=== PATIENT | female | born 1930 | race Caucasian/White ===

== ENCOUNTER 2020-05-30 15:29 | Inpatient (IN) | payer MEDICARE, BC, OTHER ==
[~2020-05-30] VITALS: Ht 165.1 cm; Wt 63.0 kg
--- OUTSIDE RECORDS SUMMARY | ~2020-05-30 | XMS | Encounter Summary ---
Demographics + + + | Address | [address] | | | [place] [address] | + + + | Home Phone | | + + + | Preferred Language | Unknown | + + + | Marital Status | Single | + + + | Bahai Affiliation | Unknown | + + + | Race | White | + + + | Ethnic Group | Not or | + + + Author + + + | Author | [facility] | + + + | Organization | [facility] | + + + | Address | Unknown | + + + | Phone | Unavailable | + + + Support + + +---------+ + | Name | Relationship | Address | Phone | + + +---------+ + | Mindi Miller | ECON | Unknown | | + + +---------+ + Care Team Providers + +------+ + | Care Detective Homicide Squad Name | Role | Phone | + +------+ + | No Pcp Per Patient | PCP | Unavailable | + +------+ + Encounter Details +--------+ + + + + | Date | Type | Department | Care Team | Description | +--------+ + + + + | 03/17/ | Documentati | NON-[facility] | Unknown . | | | 2016 | on | Department | | | +--------+ + + + + Social History + +-------+ +--------+------+ | Tobacco Use | Types | Packs/Day | Years | Date | | | | | Used | | + +-------+ +--------+------+ | Never Assessed | | | | | + +-------+ +--------+------+ + + + | Sex Assigned at | Date Recorded | | | | + + + | Not on file | | + + + + + + + | Job Start Date | Occupation | Industry | + + + + | Not on file | Not on file | Not on file | + + + + + + + + | Travel History | Travel Start | Travel End | + + + + + + | No recent travel history available. | + + documented as of this encounter Plan of Treatment Not on filedocumented as of this encounter Visit Diagnoses Not on filedocumented in this encounter"
--- OUTSIDE RECORDS SUMMARY | ~2020-05-30 | XMS | Encounter Summary ---
Demographics + + + | Address | [address] | | | [place] [address] | + + + | Home Phone | | + + + | Preferred Language | Unknown | + + + | Marital Status | Single | + + + | Quaker Affiliation | Unknown | + + + | Race | White | + + + | Ethnic Group | Not or | + + + Author + + + | Author | [facility] | + + + | Organization | [facility] | + + + | Address | Unknown | + + + | Phone | Unavailable | + + + Support + + +---------+ + | Name | Relationship | Address | Phone | + + +---------+ + | Mindi Miller | ECON | Unknown | | + + +---------+ + Care Team Providers + +------+ + | Care Manager Fashion Name | Role | Phone | + +------+ + | No Pcp Per Patient | PCP | Unavailable | + +------+ + Encounter Details +--------+ + + + + | Date | Type | Department | Care Team | Description | +--------+ + + + + | 05/22/ | Lab | [facility] | Sridevi Szymanski, | | | 2015 | Requisition | [address] | [place] [address] | | | | | [place], [place] | [address] | | | | | [address] | [place], [place] | | | | | [phone] | [address] | | | | | | [phone] | | | | | | | | +--------+ + + + [...] Not on filedocumented as of this encounter Procedures + +--------+ + + + | Procedure Name | Priori | Date/Time | Associated Diagnosis | Comments | | | ty | | | | + +--------+ + + + | RAINBOW HOLD TUBE - | Routin | 05/22/2016 | Encounter for | | | RED TOP | e | 10:41 AM | examination for | | | | | PDT | normal comparison or | | | | | | control in clinical | | | | | | research program | | + +--------+ + + + documented in this encounter Results ARTURO CASTILLO TUBE - RED TOP (05/22/2016 10:41 AM PDT) + + | Specimen | + + | Blood - Blood | | (substance) | + + + + + + + | Performing | Address | City/State/Zipcode | Phone Number | | Organization | | | | + + + + + | [facility] | [address] | [place] [address] | | | SERVICES, CORE | [address] | | | + + + + + documented in this encounter Visit Diagnoses + + | Diagnosis | + + | Encounter for examination for normal comparison or control in clinical research | | program Examination of participant in clinical trial | + + documented in this encounter"
--- OUTSIDE RECORDS SUMMARY | ~2020-05-30 | XMS | Encounter Summary ---
Demographics + + + | Address | [address] | | | [place] [address] | + + + | Home Phone | | + + + | Preferred Language | Unknown | + + + | Marital Status | Unknown | + + + | Anglican Affiliation | Unknown | + + + | Race | Unknown | + + + | Ethnic Group | Unknown | + + + Author + + + | Author | [facility] | | | and [place] | + + + | Organization | [facility] | | | and [place] | + + + | Address | Unknown | + + + | Phone | Unavailable | + + + Support + + +---------+ + | Name | Relationship | Address | Phone | + + +---------+ + | Alejo Campa | ECON | Unknown | | + + +---------+ + Care Team Providers + +------+ + | Care Voice Over Announcer Name | Role | Phone | + +------+ + | Natalia Millan MD | PCP | | + +------+ + Encounter Details +--------+ + + + + | Date | Type | Department | Care Team | Description | +--------+ + + + + | 03/14/ | Imaging | [facility] | [place], | | | 2020 | Exam | [place] [address] | [address] | | | | | [address] | [address] | | | | | [place] [address] | [place] | | | | | [phone] | [address] | | | | | | | | +--------+ + + + + Social History + +-------+ +--------+------+ | Tobacco Use | Types | Packs/Day | Years | Date | | | | | Used | | + +-------+ +--------+------+ | Never Smoker | | | | | + +-------+ +--------+------+ + +---+---+---+ | Smokeless Tobacco: | | | | | Never Used | | | | + +---+---+---+ + + +---------+ + | Alcohol Use | Drinks/Week | oz/Week | Comments | + + +---------+ + | Never | | | | + + +---------+ + + + + + | Alcohol Habits | Answer | Date Recorded | + + + + | How often do you have a drink containing | Never | 05/13/2019 | | alcohol? | | | + + + + | How many drinks containing alcohol do you | Not asked | | | have on a typical day when you are | | | | drinking? | | | + + + + | How often do you have six or more drinks on | Not asked | | | one occasion? | | | + + + + + + + | Sex Assigned at | Date Recorded | | | | + + + | Not on file | | + + + documented as of this encounter Plan of Treatment Not on filedocumented as of this encounter Procedures + +--------+ + + + | Procedure Name | Priori | Date/Time | Associated Diagnosis | Comments | | | ty | | | | + +--------+ + + + | XR CHEST 2 VIEWS | STAT | 03/14/2020 | SOB (shortness of | Results for this | | | | 1:04 PM | breath) | procedure are in the | | | | PDT | | results section. | + +--------+ + + + documented in this encounter Results XR Chest 2 Vws (03/14/2020 1:04 PM PDT) + + | Specimen | + + | | + + + + + | Impressions | Performed At | + + + | Possible right lung infiltrate. Dictated and Signed by: | [facility] | | Joce King MD Electronically signed: 03/14/2020 2:50 PM | | + + + + + + | Narrative | Performed At | + + + | EXAM: XR CHEST 2 VIEWS dated 03/14/2020 1:04 PM HISTORY: short of | [facility] | | breath Comparison: 05/13/2019 TECHNIQUE: Frontal and lateral | | | views of the chest. FINDINGS: The lungs are symmetrically | | | aerated. Asymmetric increased density in the right lung. This is | | | only seen on the frontal view. Nipple shadow in the left lower | | | lung. There are no pleural effusions. There is no pneumothorax. | | | The cardiac and mediastinal contours are not enlarged. The | | | visible osseous structures are unremarkable. | | + + + + + | Procedure Note | + + | Kevin, Rad Results In - 03/14/2020 2:54 PM PDT EXAM: XR CHEST 2 VIEWS dated 03/14/2020 | | 1:04 PMHISTORY: short of breathComparison: 05/13/2019TECHNIQUE: Frontal and lateral views | | of the chest.FINDINGS:The lungs are symmetrically aerated. Asymmetric increased | | density in the rightlung. This is only seen on the frontal view. Nipple shadow in the | | left lowerlung. There are no pleural effusions. There is no pneumothorax. The | | cardiacand mediastinal contours are not enlarged. The visible osseous structures | | areunremarkable. IMPRESSION: Possible right lung infiltrate. Dictated and Signed by: | | Joce King MD Electronically signed: 03/14/2020 2:50 PM | |FINDINGS: | |The lungs are symmetrically aerated. Asymmetric increased density in the right | |lung. This is only seen on the frontal view. Nipple shadow in the left lower | |lung. There are no pleural effusions. There is no pneumothorax. The cardiac | |and mediastinal contours are not enlarged. The visible osseous structures are | |unremarkable. | | | |IMPRESSION: | | | |Possible right lung infiltrate. | | | |Dictated and Signed by: Joce King MD | | Electronically signed: 03/14/2020 2:50 PM | + + + +---------+ + + | Performing | Address | City/State/Zipcode | Phone Number | | Organization | | | | + +---------+ + + | [facility] | | | | + +---------+ + + documented in this encounter Visit Diagnoses Not on filedocumented in this encounter Additional Health Concerns + + + + + | Infection | Onset Date | Last Indicated | Resolved Time | + + + + + | Rule out COVID-19 | 03/14/2020 | 03/14/2020 | 2020 6:06 PM | | | | | PDT | + + + + + documented as of this encounter"
--- OUTSIDE RECORDS SUMMARY | ~2020-05-30 | XMS | Encounter Summary ---
Demographics + + + | Address | [address] | | | [place] [address] | + + + | Home Phone | | + + + | Preferred Language | Unknown | + + + | Marital Status | Unknown | + + + | Congregation Affiliation | Unknown | + + + | Race | Unknown | + + + | Ethnic Group | Unknown | + + + Author + + + | Author | [facility] | | | and [place] | + + + | Organization | [facility] | | | and [...] Team Providers + +------+ + | Care Cable Spooler Name | Role | Phone | + +------+ + PCP | Unavailable | + +------+ + Encounter Details +--------+ + + + + | Date | Type | Department | Care Team | Description | +--------+ + + + + | 12/13/ | Hospital | [facility] | Nader Araujo, | | | 2002 | Encounter | [facility] | [place] [address] | | | | [address] | | | | | [address] [place], [place] | [place], [place] | | | | | [address] | [address] | | | | | [phone] | [phone] | | | | | | | [...] | + +--------+ + + + | SURGICAL PATHOLOGY | Routin | 12/13/2002 | | Results for this | | EXAM | e | 12:00 AM | | procedure are in the | | | | PST | | results section. | + +--------+ + + + documented in this encounter Results Surgical Pathology Exam (12/13/2002 12:00 AM PST) + + | Specimen | + + | | + + + + + | Narrative | Performed At | + + + | SURGICAL PATHOLOGY REPORT | [facility] | | Date Taken: 12/13/2002 Date Received: 12/13/2002 | | | Completed: 12/14/2002 Physician: PHUC CANI Copy to: Nader | | | [facility] DIAGNOSIS: Skin (center forehead), NOS. 0 | | | Maryann Moya M.D. Electronic signature GROSS | | | DESCRIPTION: The specimen labeled "center of forehead" is received in | | | formalin and consists of a 0.5 x 0.5 cm shave of white-baker tissue. | | | The specimen is bisected and submitted in one cassette. (MS) | | | [id number] [address] | | | or Testing performed at: [facility] | | | [facility] Sloan Marquez M.D., | | | Director [address] [place] [address] [address] [place] [address] Phone: | | | | | + + + + + + + + | Performing | Address | City/State/[facility] | Phone Number | | Organization | | | | + + + + + | [facility] | [address] | [place] [address] | | | [facility] | | | | | LABORATORY | | | | + + + + + | [facility] | | | | + + + + + documented in this encounter Visit Diagnoses Not on filedocumented in this encounter
--- OUTSIDE RECORDS SUMMARY | ~2020-05-30 | XMS | Encounter Summary ---
Demographics + + + | Address | [address] | | | [place] [address] | + + + | Home Phone | | + + + | Preferred Language | Unknown | + + + | Marital Status | Single | + + + | Sabianist Affiliation | Unknown | + + + | Race | White | + + + | Ethnic Group | Not or | + + + Author + + + | Author | [facility] | + + + | Organization | [facility] | + + + | Address | Unknown | + + + | Phone | Unavailable | + + + Support + + +---------+ + | Name | Relationship | Address | Phone | + + +---------+ + | Mindi Miller | ECON | Unknown | | + + +---------+ + Care Team Providers + +------+ + | Care Senior Application Programmer Name | Role | Phone | + +------+ + | No Pcp Per Patient | PCP | Unavailable | + +------+ + Encounter Details +--------+ + + + + | Date | Type | Department | Care Team | Description | +--------+ + + + + | 02/12/ | Documentati | NON-[facility] | Unknown . | | | 2017 | on | Department | | | [...]
--- OUTSIDE RECORDS SUMMARY | ~2020-05-30 | XMS | Encounter Summary ---
Demographics + + + | Address | [address] | | | [place] [address] | + + + | Home Phone | | + + + | Preferred Language | Unknown | + + + | Marital Status | Unknown | + + + | Worship Affiliation | Unknown | + + + | Race | Unknown | + + + | Ethnic Group | Unknown | + + + Author + + + | Author | [facility] | | | and [place] | + + + | Organization | [facility] | | | and [...] Team Providers + +------+ + | Care Continuous Improvement Director Name | Role | Phone | + +------+ + | Natalia Millan MD | PCP | | + +------+ + Reason for Visit + +--------+ + | Reason | Onset | Comments | | | Date | | + +--------+ + | Symptom Management | 05/27/ | | | | 2020 | | + +--------+ + Encounter Details +--------+ + + + + | Date | Type | Department | Care Team | Description | +--------+ + + + + | 05/27/ | Telephone | [facility] [place] | Becca Luo | Symptom Management | | 2020 | | [facility] | D, PT [address] | | | | | [address] | [address] [place] | | | | | [place] | [address] | | | | | [address] | | | | | | [phone] | | | +--------+ + + + [...] + + documented as of this encounter Miscellaneous Notes Telephone Encounter - Becca Luo, PT - 05/27/2020 4:36 PM PDT(for 1st contact and 2nd contact calls.) While waiting for your COVID-19 test results, you must wear a mask if yo u need to leave your home. This includes returning to a healthcare facility. Please arrive w earing your mask given to you during your initial evaluation. Do not throw your mask away. Was patient tested for COVID as part of Pre-Op clearance? No If yes, when is their upcoming surgery? N/A Patient reached? No, (negative) left a detailed voice message stating their test results for the COVID 19 is negative. Patient to continue social distancing, but no longer needs to be on home quaranti ne . May return to work if fever is gone and no meds were needed to reduce it within the las t 24 hours. COVID testing done? Yes COVID results: Negative Describe your symptoms? Unable to assess Are your symptoms getting better, worse, or the same? Symptoms: Unable to assess documented in this encounter Plan of Treatment Not on filedocumented as of this encounter Visit Diagnoses Not on filedocumented in this encounter Additional Health Concerns + + + + + | Infection | Onset Date | Last Indicated | Resolved Time | + + + + + | Rule out COVID-19 | 05/24/2020 | 05/24/2020 | 05/27/2020 12:06 AM | | | | | PDT | + + + + + documented as of this encounter"
--- OUTSIDE RECORDS SUMMARY | ~2020-05-30 | XMS | Encounter Summary ---
Demographics + + + | Address | [address] | | | [place] [address] | + + + | Home Phone | | + + + | Preferred Language | Unknown | + + + | Marital Status | Unknown | + + + | Bahai Affiliation | Unknown | + + + | Race | Unknown | + + + | Ethnic Group | Unknown | + + + Author + + + | Author | [facility] | | | and [place] | + + + | Organization | [facility] | | | [...] Team Providers + +------+ + | Care Staff Services Manager Name | Role | Phone | + +------+ + | Graeme Millan MD | PCP | | + +------+ + Reason for Visit + + + | Reason | Comments | + + + | Shortness of Breath | | + + + Encounter Details +--------+ + + + + | Date | Type | Department | Care Team | Description | +--------+ + + + + | 03/14/ | Emergency | [facility] | Arnaldo Roque | Viral pneumonitis | | 2020 | | [facility] | Nelson Haque MD | (Primary Dx) | | | | CENTER [address] | [address] | | | | | [place], [place] | [place], [place] | | | | | [address] | [id number] | | | | | [phone] | | | +--------+ + + + [...] + + documented as of this encounter Last Filed Vital Signs + + + + + | Vital Sign | Reading | Time Taken | Comments | + + + + + | Blood Pressure | 168/72 | 03/14/2020 4:31 PM | | | | | PDT | | + + + + + | Pulse | 68 | 03/14/2020 4:31 PM | | | | | PDT | | + + + + + | Temperature | 36.1 C (97 F) | 03/14/2020 3:04 PM | | | | | PDT | | + + + + + | Respiratory Rate | 18 | 03/14/2020 4:31 PM | | | | | PDT | | + + + + + | Oxygen Saturation | 99% | 03/14/2020 4:31 PM | | | | | PDT | | + + + + + | Inhaled Oxygen | - | - | | | Concentration | | | | + + + + + | Weight | 63.5 kg (140 lb) | 03/14/2020 3:04 PM | | | | | PDT | | + + + + + | Height | 167.6 cm (5' 6") | 03/14/2020 3:04 PM | | | | | PDT | | + + + + + | Body Mass Index | 22.6 | 03/14/2020 3:04 PM | | | | | PDT | | + + + + + documented in this encounter Discharge Instructions Instructions Arnaldo Roque MD - 03/14/2020Return for severe worsening sympto ms. Please follow-up in medical clinic. Discharge Instructions While Being Evaluated for COVID-19 Expect to receive your test results in the next 2-5 days. Be sure the hospital has your correct phone number. Please answer your phone as we are unab le to leave your results in a message. Monitor your symptoms Seek prompt medical attention if your illness is worsening (e.g., difficulty breathing). Be fore seeking care, call your healthcare provider or Emergency Department and tell them that you have, or are being evaluated for, COVID-19. Put on a facemask before you enter the facility. These steps will help the healthcare provi isiah's office to keep other people in the office or waiting room from getting infected or exp osed. If you have a medical emergency and need to call 911, notify the dispatch personnel that yo u have, or are being evaluated for COVID-19. If possible, put on a facemask before emergency medical services arrive. Stay home except to get medical care You should restrict activities outside your home. Do not go to work, school, or public area s. Avoid using public transportation, ride-sharing, or taxis. Limit the number of visitors in your home Only have visitors who you must see and keep visits short. Remember to keep seniors and peo ple with chronic medical conditions (e.g. diabetes, lung problems, and immune deficiency) aw ay from infected people. Separate yourself from other people and animals in your home As much as possible, you should stay in a specific room and away from other people in your home. Also, you should use a separate bathroom, if available. Make sure that shared spaces in the home have good air flow, such as by an air conditioner or an opened window, weather permitting. Call ahead before visiting your doctor If you have a medical appointment, call the healthcare provider and tell them that you have or may have COVID-19. This will help the healthcare provider's office take steps to keep ot her people from getting infected or exposed. Wear a facemask You should wear a facemask when you are around other people (e.g., sharing a room or vehicl e) or pets and before you enter a healthcare provider's office. If you are not able to wear a facemask (for example, because it causes trouble breathing), then people who live with you should not stay in the same room with you, or they should wear a facemask if they enter you r room. Cover your coughs and sneezes Cover your mouth and nose with a tissue or your inner elbow when you cough or sneeze. Throw used tissues in a lined trash can. Immediately wash your hands with soap and water for at l east 20 seconds or, if soap and water are not available, clean your hands with an alcohol-ba sed hand training analyst that contains at least 60% alcohol. Clean your hands often Wash your hands often with soap and water for at least 20 seconds, especially after blowing your nose, coughing, or sneezing; going to the bathroom; and before eating or preparing kahlil d. If soap and water are not readily available, use an alcohol-based hand training analyst with at least 60% alcohol, covering all surfaces of your hands and rubbing them together until they feel dry. Soap and water are the best option if hands are visibly dirty. Avoid touching your eyes, no se, and mouth with unwashed hands. Avoid sharing personal household items You should not share dishes, drinking glasses, cups, eating utensils, towels, or bedding wi th other people or pets in your home. After using these items, they should be washed thoroug hly with soap and water. Clean all high-touch surfaces everyday High touch surfaces include counters, tabletops, doorknobs, bathroom fixtures, toilets, rayna satinder, keyboards, tablets, and bedside tables. Also, clean any surfaces that may have blood, s tool, or body fluids on them. Use a household cleaning spray or wipe, according to the label instructions. Wash laundry thoroughly. Immediately remove and wash clothes or bedding that have blood, stool, or body fluids on th em. Wear disposable gloves while handling soiled items and keep soiled items away from your body. Clean your hands (with soap and water or an alcohol-based hand training analyst) immediately after removing your gloves. Read and follow directions on labels of laundry or clothing items and detergent. In general , using a normal laundry detergent according to washing machine instructions and dry thoroug hly using the warmest temperatures recommended on the clothing label. Be careful when touching waste All waste can go in the regular garbage bins. When emptying wastebaskets, use caution to pr event from touching used tissues with your hands. Be sure to wash your hands with soap and w ater after emptying the wastebasket. Discontinuing home isolation Patients with confirmed COVID-19 should remain under home isolation precautions until the r isk of secondary transmission to others is thought to be low. The decision to discontinue ho me isolation precautions should be made in consultation with your healthcare provider. For more information visit: www.CDC.gov www.who.int www.[place].gov Reference: https://www.cdc.gov/coronavirus/2019-nCoV/hcp/index.html https://www.who.int/emergencies/diseases/wyjxq-tzbyqzuqonn-0796/hxtxtn-puq-whwgoy documented in this encounter Medications at Time of Discharge + + + +---------+ + + | Medication | Sig | Dispensed | Refills | Start | End Date | | | | | | Date | | + + + +---------+ + + | albuterol 90 | Inhale 2 puffs into | 1 | 0 | 05/13/20 | | | mcg/puff inhaler | the lungs every 4 | Inhaler | | 19 | | | | hours as needed for | | | | | | | Wheezing or | | | | | | | Shortness of Breath. | | | | | | | Use with spacer | | | | | | | device. | | | | | + + + +---------+ + + | azithromycin | Take 2 tablets by | 6 | 0 | 03/14/20 | | | (ZITHROMAX) 250 mg | mouth daily x 1 day, | tablet | | 20 | | | tablet | then take 1 tablet | | | | | | | by mouth daily x 4 | | | | | | | days. | | | | | + + + +---------+ + + | cholecalciferol | Take 1,000 Units by | | 0 | | | | (VITAMIN D-3) 1,000 | mouth Daily. | | | | | | units capsule | | | | | | + + + +---------+ + + | cyanocobalamin | Take 50 mcg by mouth | | 0 | | | | (VITAMIN B-12) 100 | Daily. | | | | | | MCG tablet | | | | | | + + + +---------+ + + | FLOVENT HFA 220 | Take 2 puffs by | 1 | 0 | 03/14/20 | | | MCG/ACT inhaler | mouth 2 times daily. | Inhaler | | 20 | | + + + +---------+ + + | levothyroxine | take 1 tablet by | | 0 | 02/01/20 | | | (SYNTHROID) 100 mcg | mouth once daily | | | 20 | | | tablet | | | | | | + + + +---------+ + + | losartan (COZAAR) | Take 100 mg by mouth | | 0 | | | | 100 MG tablet | Daily. | | | | | + + + +---------+ + + | Multiple | Take by mouth. | | 0 | | | | Vitamins-Minerals | | | | | | | (OCUVITE ADULT 50+ | | | | | | | PO) | | | | | | + + + +---------+ + + | oxybutynin | take 3 tablets by | | 0 | 03/05/20 | | | (DITROPAN XL) 5 mg | mouth at bedtime | | | 20 | | | 24 hr tablet | | | | | | + + + +---------+ + + | | | | 0 | /20 | | | Spacer/Aero-Holding | | | | 19 | | | Chambers | | | | | | | (AEROCHAMBER PLUS | | | | | | | EMIR-VU) MISC | | | | | | + + + +---------+ + + documented as of this encounter ED Notes Arnaldo Roque MD - 03/14/2020 4:22 PM PDTFormatting of this note might be d ifferent from the original. [facility] Corey Johnson EMERGENCY DEPARTMENT ENCOUNTER NOTE [address] [place] [id number] PCP:Graeme Millan MD [phone] EMERGENCY DEPARTMENT ENCOUNTER CHIEF COMPLAINT Chief Complaint Patient presents with Shortness of Breath TRIAGE ED Triage Notes, ED Triage Notes Regino Martinez RN 03/14/2020 15:05 SOB, patient sent from after being treated for SOB and was told to come to the ED for fu rther evaluation and to r/o PE HPI Corey Johnson is a 89 y.o. female who presents with ongoing cough that is worsened over the last week. She has had some shortness of breath. She has previous history of asthma. She was seen in urgent care and given albuterol and directions and he had to use albuterol. Tam bhat had some blood work which showed elevated d-dimer. Patient was sent over for further investigation. He does have ongoing dry cough. No significant sputum production PAST MEDICAL AND SURGICAL HISTORY I did review the patient's past medical and surgical history. 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 The patient has a past surgical history that includes Esophagus dilation (04/25/2016); Hysterectomy; knee surgery; and Colon oscopy (N/A, 02/25/2018). Family and Social History I did review the patient's family and social history. The patient's family history is not o n file. The patient reports that she has never smoked. She has never used smokeless tobacco. She reports that she does not drink alcohol or use drugs. 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 Use with spacer device. cholecalciferol (VITAMIN D-3) 1,000 units capsule Take 1,000 Units by mouth Daily. cyanocobalamin (VITAMIN B-12) 100 MCG tablet Take 50 mcg by mouth Daily. FLOVENT HFA 220 MCG/ACT inhaler Take 2 puffs by mouth 2 times daily. levothyroxine (SYNTHROID) 100 mcg tablet take 1 tablet by mouth once daily losartan (COZAAR) 100 MG tablet Take 100 mg by mouth Daily. Multiple Vitamins-Minerals (OCUVITE ADULT 50+ PO) Take by mouth. oxybutynin (DITROPAN XL) 5 mg 24 hr tablet take 3 tablets by mouth at bedtime Spacer/Aero-Holding Chambers (AEROCHAMBER PLUS EMIR-VU) MISC Allergies No Known Allergies REVIEW OF SYSTEMS Please see HPI, All systems negative except as marked. Twelve point review of system comp leted my me. PHYSICAL EXAM VITAL SIGNS: Temp: 36.1 C (97 F) Pulse: 67 Resp: 20 SpO2: 100 % BP: 178/68 Constitutional: Well developed, Well nourished, Non-toxic appearance. HENT: Normocephalic, Atraumatic, Bilateral external ears normal, Oropharynx moist, No oral exudates, Nose normal. Neck- Normal range of motion, No tenderness, Supple, No stridor. Eyes: PERRL, EOMI, Conjunctiva normal, No discharge. Respiratory: Normal breath sounds, noted dry cough, with increased rhonchi bilaterally. N o chest tenderness. Cardiovascular: Normal heart rate, Normal rhythm, No murmurs, No rubs, No gallops. GI: Bowel sounds normal, Soft, No tenderness, No masses, No pulsatile masses. Musculoskeletal: Intact distal pulses, No edema, No tenderness, No cyanosis, No clubbing. Good range of motion in all major joints. No tenderness to palpation or major deformities no ana paula. Back:- No tenderness. Neurologic: Alert & oriented x 3, Normal motor function, Normal sensory function, No focal deficits noted, no facial assymetry noted. Equal aerodynamics teacher in all extremities Psychiatric: Affect normal, Judgment normal, Mood normal. RADIOLOGY Ct Angiogram Pulmonary W Contrast Result Date: 03/14/2020 EXAM: CT PULMONARY ANGIOGRAM 03/14/2020 2:49 PM HISTORY: PE suspected, high pretest prob COMPARISON: Chest x-ray performed today. TECHNIQUE: Axial images are performed through the chest following the uneventful intravenous administration of 65 mL Omnipaque-350 contrast, with timing of the contrast bolus optimized for opacification of the pulmonary arteries. Mul tiplanar reformations are also performed. DOSE: DLP 144 mGy-cm FINDINGS: Pulmonary arteries: The pulmonary arteries are well opacified. The average Hounsfield units in the main pulmon glen artery are over 800. The bolus is slightly heterogeneous. There is no enlargement of t he main pulmonary artery. There are no filling defects to suggest pulmonary embolism. Heart and Mediastinum: No aneurysmal dilatation of the thoracic aorta. Dissection cannot be fully excluded given the timing of the contrast bolus. None is suspected. No significant cardiac chamber enlargement. No pericardial thickening. No pneumomediastinum. No mediastinal or h ilar lymphadenopathy. There is a small hiatal hernia. Lungs: No pleural effusions. No pneum othorax. No bronchial wall thickening. Mild lower lobe bronchiectasis. There are numerous bilateral groundglass nodules. A large portion are groundglass. The largest is 5 mm as see n in the right middle lobe (series 5, image 57). Chest wall: No axillary or visible supracla vicular lymphadenopathy. Upper abdomen: Unremarkable Bone: No suspicious lytic or blastic katrin ne lesions. No acute osseous abnormalities. Diffuse demineralization. No evidence for pulmonary embolism. Multiple bilateral pulmonary nodules measuring 5 mm and less. A large portion of these are ground glass. The remainder are noncalcified. These c ould represent an atypical pneumonia. These could represent changes related to hypersensiti vity pneumonitis. Dictated and Signed by: Joce King MD Electronically signed: 020 4:03 PM Xr Chest 2 Vws Result Date: 03/14/2020 EXAM: XR CHEST 2 VIEWS dated 03/14/2020 1:04 PM HISTORY: short of breath Comparison: 05/13/20 TECHNIQUE: Frontal and lateral views of the chest. FINDINGS: The lungs are symmetrically aerated. Asymmetric increased density in the right lung. This is only seen on the frontal view. Nipple shadow in the left lower lung. There are no pleural effusions. There is no p neumothorax. The cardiac and mediastinal contours are not enlarged. The visible osseous st ructures are unremarkable. Possible right lung infiltrate. Dictated and Signed by: Joce King MD Electronically signed: 03/14/2020 2:50 PM LAB Labs Reviewed - No data to display ED COURSE & MEDICAL DECISION MAKING Pertinent Labs & Imaging studies reviewed. (See chart for details) Nursing notes reviewed. Patient does have some very small nodules in the chest which are shown of viral pneumonitis versus allergic pneumonitis. Patient is otherwise stable. She is encouraged to follow-up with her primary care physician. We are testing here for COVID-19 she is to be followed by the outpatient COVID screening visits. At this point patient is otherwise stable. New Prescriptions AZITHROMYCIN (ZITHROMAX) 250 MG TABLET Take 2 tablets by mouth daily x 1 day, then take 1 tablet by mouth daily x 4 days. Discharge Instructions Return for severe worsening symptoms. Please follow-up in medical clinic. Discharge Instructions While Being Evaluated for COVID-19 Expect to receive your test results in the next 2-5 days. ? Be sure the hospital has your correct phone number. Please answer your phone as we are un able to leave your results in a message. Monitor your symptoms ? Seek prompt medical attention if your illness is worsening (e.g., difficulty breathing). Before seeking care, call your healthcare provider or Emergency Department and tell them leslie t you have, or are being evaluated for, COVID-19. ? Put on a facemask before you enter the facility. These steps will help the healthcare pro vider's office to keep other people in the office or waiting room from getting infected or e xposed. If you have a medical emergency and need to call 911, notify the dispatch personnel that yo u have, or are being evaluated for COVID-19. ? If possible, put on a facemask before emergency medical services arrive. Stay home except to get medical care ? You should restrict activities outside your home. Do not go to work, school, or public ar eas. Avoid using public transportation, ride-sharing, or taxis. Limit the number of visitors in your home ? Only have visitors who you must see and keep visits short. Remember to keep seniors and p eople with chronic medical conditions (e.g. diabetes, lung problems, and immune deficiency) away from infected people. Separate yourself from other people and animals in your home ? As much as possible, you should stay in a specific room and away from other people in you r home. Also, you should use a separate bathroom, if available. ? Make sure that shared spaces in the home have good air flow, such as by an air conditione r or an opened window, weather permitting. Call ahead before visiting your doctor ? If you have a medical appointment, call the healthcare provider and tell them that you wells ve or may have COVID-19. This will help the healthcare provider's office take steps to keep other people from getting infected or exposed. Wear a facemask ? You should wear a facemask when you are around other people (e.g., sharing a room or vehi yumiko) or pets and before you enter a healthcare provider's office. If you are not able to wea r a facemask (for example, because it causes trouble breathing), then people who live with y ou should not stay in the same room with you, or they should wear a facemask if they enter y our room. Cover your coughs and sneezes ? Cover your mouth and nose with a tissue or your inner elbow when you cough or sneeze. Thr ow used tissues in a lined trash can. Immediately wash your hands with soap and water for at least 20 seconds or, if soap and water are not available, clean your hands with an alcohol- based hand training analyst that contains at least 60% alcohol. Clean your hands often ? Wash your hands often with soap and water for at least 20 seconds, especially after blowi ng your nose, coughing, or sneezing; going to the bathroom; and before eating or preparing f ood. If soap and water are not readily available, use an alcohol-based hand training analyst with a t least 60% alcohol, covering all surfaces of your hands and rubbing them together until the y feel dry. ? Soap and water are the best option if hands are visibly dirty. Avoid touching your eyes, nose, and mouth with unwashed hands. Avoid sharing personal household items ? You should not share dishes, drinking glasses, cups, eating utensils, towels, or bedding with other people or pets in your home. After using these items, they should be washed thoro ughly with soap and water. Clean all high-touch surfaces everyday ? High touch surfaces include counters, tabletops, doorknobs, bathroom fixtures, toilets, p hones, keyboards, tablets, and bedside tables. Also, clean any surfaces that may have blood, stool, or body fluids on them. Use a household cleaning spray or wipe, according to the lab el instructions. Wash laundry thoroughly. ? Immediately remove and wash clothes or bedding that have blood, stool, or body fluids on them. Wear disposable gloves while handling soiled items and keep soiled items away from you r body. Clean your hands (with soap and water or an alcohol-based hand training analyst) immediatel y after removing your gloves. ? Read and follow directions on labels of laundry or clothing items and detergent. In gener al, using a normal laundry detergent according to washing machine instructions and dry thoro ughly using the warmest temperatures recommended on the clothing label. Be careful when touching waste ? All waste can go in the regular garbage bins. When emptying wastebaskets, use caution to prevent from touching used tissues with your hands. Be sure to wash your hands with soap and water after emptying the wastebasket. Discontinuing home isolation ? Patients with confirmed COVID-19 should remain under home isolation precautions until the risk of secondary transmission to others is thought to be low. The decision to discontinue home isolation precautions should be made in consultation with your healthcare provider. For more information visit: www.CDC.gov www.who.int www.[place].gov Reference: https://www.cdc.gov/coronavirus/2019-nCoV/hcp/index.html https://www.who.int/emergencies/diseases/kthso-mkdeoxgnhny-6201/bvszrb-yjs-tpctej FINAL IMPRESSION 1. Viral pneumonitis Acute Portions of this chart may have been created with Loudcaster voice recognition software. Occasi onal wrong-word or sound-alike substitutions may have occurred due to the inherent rodríguez itations of voice recognition software. Please read the chart carefully and recognize, using context, where these substitutions have occurred Arnaldo Roque MD 03/14/20 1624 ayes, Tiana Martell RN - 03/14/2020 3:04 PM PDTSOB, patient sent from after being treated for SOB a nd was told to come to the ED for further evaluation and to r/o PE documented in this encounter Plan of Treatment + +------+--------+ + + | Name | Type | Priori | Associated Diagnoses | Date/Time | | | | ty | | | + +------+--------+ + + | ED INFORMATION | ELVIRA | Routin | | 03/14/2020 2:44 PM | | EXCHANGE | | e | | PDT | + +------+--------+ + + documented as of this encounter Procedures + +--------+ + + + | Procedure Name | Priori | Date/Time | Associated Diagnosis | Comments | | | ty | | | | + +--------+ + + + | CT ANGIOGRAM | STAT | 03/14/2020 | | Results for this | | PULMONARY | | 3:35 PM | | procedure are in the | | | | PDT | | results section. | + +--------+ + + + | ED INFORMATION | Routin | 03/14/2020 | | | | EXCHANGE | e | 2:44 PM | | | | | | PDT | | | + +--------+ + + + +---+--------+ | | | | | Proced | | | ure | | | Note - | | | Kevin, | | | Lab In | | | | | | Hlseve | | | n - | | | 04/14/ | | | 2020 | | | 2:45 | | | PM PDT | | | | | | Format | | | ting | | | of | | | this | | | note | | | might | | | be | | | differ | | | ent | | | from | | | the | | | origin | | | al.COL | | | LECTIV | | | E?NOTI | | | FICATI | | | ON?04/ | | | 14/202 | | | 0 | | | 14:43? | | | JOHNSON | | | , COREY | | | | | | J?MRN: | | | | | | [id number] | | | [id number] | | | riteri | | | a | | | [employer] | | | urity | | | and | | | Safety | | | No | | | recent | | | | | | Securi | | | ty | | | Events | | | | | | curren | | | tly on | | | | | | fileED | | | Care | | | Guidel | | | inesTh | | | ere | | | are | | | curren | | | tly no | | | ED | | | Care | | | Guidel | | | ford | | | for | | | this | | | patien | | | t. | | | Please | | | check | | | your | | | facili | | | ty's | | | medica | | | l | | | record | | | s | | | system | | | .Presc | | | riptio | | | n Drug | | | | | | Report | | | (12 | | | Mo.)Rx | | | | | | Detail | | | sFill | | | Date | | | Drug | | | Descri | | | ption | | | Qty. | | | Prescr | | | iber | | | CS MED | | | | | | 2020-0 | | | 3-03 | | | LORAZE | | | JYOTI | | | 0.5 MG | | | | | | TABLET | | | 2 | | | GRAEME | | | WUEST | | | 4 0 Rx | | | | | | Summar | | | yMetri | | | c | | | Count | | | CS | | | II-V | | | Rx 1 | | | CS-II | | | Rx 0 | | | Quanti | | | ty | | | Dispen | | | sed 2 | | | Unique | | | | | | Prescr | | | ibers | | | 1 | | | Unique | | | | | | Pharma | | | cies 1 | | | | | | Benzos | | | 1 | | | Opioid | | | s 0 | | | Long | | | Acting | | | | | | Opioid | | | s 0 | | | E.D. | | | Visit | | | Count | | | (12 | | | mo.)Fa | | | cility | | | | | | Visits | | | Low | | | Acuity | | | | | | Provid | | | ence | | | St. | | | [facility] | | | Medica | | | l | | | Center | | | 2 0 | | | Total | | | 2 0 | | | Note: | | | Visits | | | | | | indica | | | te | | | total | | | known | | | visits | | | . | | | Medica | | | id Low | | | | | | Acuity | | | Dx | | | are | | | the | | | number | | | of | | | primar | | | y | | | diagno | | | ses on | | | the | | | Medica | | | id's | | | Low | | | Acuity | | | dx | | | list. | | | | | | Recent | | | | | | Emerge | | | ncy | | | Depart | | | ment | | | Visit | | | Summar | | | yDate | | | Facili | | | ty | | | City | | | State | | | Type | | | Diagno | | | ses or | | | Chief | | | | | | Compla | | | int | | | Apr | | | 14, | | | 2020 | | | Provid | | | ence | | | [facility] | | [place] | | | [place] | | | Emerge | | | ncy | | | SOB, | | | poss | | | blood | | | clot | | | Shaun | | | 13, | | | 2019 | | | Provid | | | ence | | | [facility] | [facility] | | | [place] | | | [place] | | | Emerge | | | ncy | | | Cough | | | | | | Bronch | | | itis, | | | not | | | specif | | | ied as | | | acute | | | or | | | chroni | | | c | | | Recent | | | | | | Inpati | | | ent | | | Visit | | | Summar | | | yNo | | | record | | | ed | | | inpati | | | ent | | | visits | | | . Care | | | | | | TeamTh | | | ere is | | | not a | | | care | | | team | | | on | | | record | | | at | | | this | | | time. | | | Collec | | | tive | | | Portal | | | This | | | patien | | | t has | | | regist | | | ered | | | at the | | | | | | Provid | | | ence | | | St[facility] | | | [facility] | [facility] | | | l | | | Center | | | | | | Emerge | | | ncy | | | Depart | | | ment | | | For | | | more | | | inform | | | ation | | | visit: | | | | | | https: | | | //prov | | | .colle | | | ctivem | | | edical | | | .com/n | | | otify/ | | | [id number] | | | [phone] | | | [phone] | | | -[email or web address] | | | [id number] | | | [id number] | | | | | | PLEASE | | | NOTE: | | | 1. | | | Any | | | care | | | recomm | | | endati | | | ons | | | and | | | other | | | clinic | | | al | | | inform | | | ation | | | are | | | provid | | | ed as | | | guidel | | | ford | | | or for | | | | | | histor | | | ical | | | purpos | | | es | | | only, | | | and | | | provid | | | ers | | | should | | | | | | exerci | | | se | | | their | | | own | | | clinic | | | al | | | judgme | | | nt | | | when | | | provid | | | ing | | | care. | | | 2. | | | You | | | may | | | only | | | use | | | this | | | inform | | | ation | | | for | | | purpos | | | es of | | | treatm | | | ent, | | | paymen | | | t or | | | health | | | care | | | operat | | | ions | | | activi | | | ties, | | | and | | | subjec | | | t to | | | the | | | limita | | | tions | | | of | | | applic | | | able | | | Collec | | | tive | | | Polici | | | es. | | | 3. | | | You | | | should | | | | | | consul | | | t | | | direct | | | ly | | | with | | | the | | | organi | | | zation | | | that | | | provid | | | ed a | | | care | | | guidel | | | ine or | | | other | | | | | | clinic | | | al | | | histor | | | y with | | | any | | | questi | | | ons | | | about | | | additi | | | onal | | | inform | | | ation | | | or | | | accura | | | cy or | | | comple | | | teness | | | of | | | inform | | | ation | | | provid | | | ed.? | | | 2020 | | | Collec | | | tive | | | Medica | | | l | | | Techn[employer] | | | logies | | | , Inc[employer] | | | - | | | [email or web address] | | | llecti | | | vemedi | | | [email or web address] | | | m | +---+--------+ documented in this encounter Results CT Angiogram Pulmonary w Contrast (03/14/2020 3:35 PM PDT) + + | Specimen | + + | | + + + + + | Impressions | Performed At | + + + | No evidence for pulmonary embolism. Multiple bilateral | [facility] | | pulmonary nodules measuring 5 mm and less. A large portion of these | | | are ground glass. The remainder are noncalcified. These could | | | represent an atypical pneumonia. These could represent changes | | | related to hypersensitivity pneumonitis. Dictated and Signed by: | | | Joce King MD Electronically signed: 03/14/2020 4:03 PM | | + + + + + + | Narrative | Performed At | + + + | EXAM: CT PULMONARY ANGIOGRAM 03/14/2020 2:49 PM HISTORY: PE | [facility] | | suspected, high pretest prob COMPARISON: Chest x-ray performed | | | today. TECHNIQUE: Axial images are performed through the chest | | | following the uneventful intravenous administration of 65 mL | | | Omnipaque-350 contrast, with timing of the contrast bolus optimized | | | for opacification of the pulmonary arteries. Multiplanar reformations | | | are also performed. DOSE: DLP 144 mGy-cm FINDINGS: | | | Pulmonary arteries: The pulmonary arteries are well opacified. The | | | average Hounsfield units in the main pulmonary artery are over 800. | | | The bolus is slightly heterogeneous. There is no enlargement of | | | the main pulmonary artery. There are no filling defects to suggest | | | pulmonary embolism. Heart and Mediastinum: No aneurysmal | | | dilatation of the thoracic aorta. Dissection cannot be fully | | | excluded given the timing of the contrast bolus. None is suspected. | | | No significant cardiac chamber enlargement. No pericardial | | | thickening. No pneumomediastinum. No mediastinal or hilar | | | lymphadenopathy. There is a small hiatal hernia. Lungs: No | | | pleural effusions. No pneumothorax. No bronchial wall thickening. | | | Mild lower lobe bronchiectasis. There are numerous bilateral | | | groundglass nodules. A large portion are groundglass. The largest | | | is 5 mm as seen in the right middle lobe (series 5, image 57). | | | Chest wall: No axillary or visible supraclavicular lymphadenopathy. | | | Upper abdomen: Unremarkable Bone: No suspicious lytic or blastic | | | bone lesions. No acute osseous abnormalities. Diffuse | | | demineralization. | | + + + + + | Procedure Note | + + | Kevin, Rad Results In - 03/14/2020 4:06 PM PDT EXAM: CT PULMONARY ANGIOGRAM 03/14/2020 | | 2:49 PM HISTORY: PE suspected, high pretest prob COMPARISON: Chest x-ray performed | | today. TECHNIQUE: Axial images are performed through the chest following the | | uneventfulintravenous administration of 65 mL Omnipaque-350 contrast, with timing of | | thecontrast bolus optimized for opacification of the pulmonary arteries.Multiplanar | | reformations are also performed.DOSE: DLP 144 mGy-cmFINDINGS: Pulmonary arteries: The | | pulmonary arteries are well opacified. The averageHounsfield units in the main | | pulmonary artery are over 800. The bolus isslightly heterogeneous. There is no | | enlargement of the main pulmonary artery. There are no filling defects to suggest | | pulmonary embolism.Heart and Mediastinum: No aneurysmal dilatation of the thoracic | | aorta. Dissection cannot be fully excluded given the timing of the contrast bolus. None | | is suspected. No significant cardiac chamber enlargement. No pericardialthickening. | | No pneumomediastinum. No mediastinal or hilar lymphadenopathy. There is a small hiatal | | hernia.Lungs: No pleural effusions. No pneumothorax. No bronchial wall thickening. | | Mild lower lobe bronchiectasis. There are numerous bilateral groundglassnodules. A | | large portion are groundglass. The largest is 5 mm as seen in theright middle lobe | | (series 5, image 57).Chest wall: No axillary or visible supraclavicular | | lymphadenopathy.Upper abdomen: UnremarkableBone: No suspicious lytic or blastic bone | | lesions. No acute osseousabnormalities. Diffuse demineralization. IMPRESSION: No | | evidence for pulmonary embolism.Multiple bilateral pulmonary nodules measuring 5 mm and | | less. A large portionof these are ground glass. The remainder are noncalcified. These | | couldrepresent an atypical pneumonia. These could represent changes related | | tohypersensitivity pneumonitis.Dictated and Signed by: Joce King MD | | Electronically signed: 03/14/2020 4:03 PM | |There is a small hiatal hernia. | | | |Lungs: No pleural effusions. No pneumothorax. No bronchial wall thickening. | |Mild lower lobe bronchiectasis. There are numerous bilateral groundglass | |nodules. A large portion are groundglass. The largest is 5 mm as seen in the | |right middle lobe (series 5, image 57). | | | |Chest wall: No axillary or visible supraclavicular lymphadenopathy. | | | |Upper abdomen: Unremarkable | | | |Bone: No suspicious lytic or blastic bone lesions. No acute osseous | |abnormalities. Diffuse demineralization. | | | |IMPRESSION: | | | |No evidence for pulmonary embolism. | | | |Multiple bilateral pulmonary nodules measuring 5 mm and less. A large portion | |of these are ground glass. The remainder are noncalcified. These could | |represent an atypical pneumonia. These could represent changes related to | |hypersensitivity pneumonitis. | | | |Dictated and Signed by: Joce King MD | | Electronically signed: 03/14/2020 4:03 PM | + + + +---------+ + + | Performing | Address | City/State/Zipcode | Phone Number | | Organization | | | | + +---------+ + + | [facility] | | | | + +---------+ + + documented in this encounter Visit Diagnoses + + | Diagnosis | + + | Viral pneumonitis - Primary Viral pneumonia, unspecified | + + documented in this encounter Administered Medications + +--------+ +--------+------+------+ | Medication Order | MAR | Action | Dose | Rate | Site | | | Action | Date | | | | + +--------+ +--------+------+------+ | iohexol (OMNIPAQUE 350) 350 | Given | 03/14/20 | 65 mLs | | | | mg/mL injection 65 mL 65 mL, | | 20 3:36 | | | | | Intravenous, ONCE PRN, Other, for | | PM PDT | | | | | imaging CT study, Starting Tue | | | | | | | 03/14/20 at 1535, For 1 dose, | | | | | | | Radiology | | | | | | + +--------+ +--------+------+------+ +---+---+ | | | +---+---+ + +------+ +--------+-------+---+ | sodium chloride 0.9% (NS) bolus | Push | 03/14/20 | 40 mLs | 2400 | | | 40 mL 40 mL, Intravenous, | | 20 3:36 | | mL/hr | | | Administer over 1 Minutes, ONCE | | PM PDT | | | | | PRN, for imaging CT study, | | | | | | | Starting 03/14/20 at 1535, For | | | | | | | 1 dose, Radiology | | | | | | + +------+ +--------+-------+---+ +---+---+ | | | +---+---+ documented in this encounter Additional Health Concerns + [...]
--- OUTSIDE RECORDS SUMMARY | ~2020-05-30 | XMS | Encounter Summary ---
Demographics + + + | Address | [address] | | | [place] [address] | + + + | Home Phone | | + + + | Preferred Language | Unknown | + + + | Marital Status | Unknown | + + + | Baptist Affiliation | Unknown | + + + | Race | Unknown | + + + | Ethnic Group | Unknown | + + + Author + + + | Author | [facility] | | | and [place] | + + + | Organization | [facility] | | | [...] Team Providers + +------+ + | Care Licensed Bondsman Name | Role | Phone | + +------+ + | Natalia Millan MD | PCP | | + +------+ + Reason for Visit +--------+ + | Reason | Comments | +--------+ + | Cough | | +--------+ + Encounter Details +--------+ + + + + | Date | Type | Department | Care Team | Description | +--------+ + + + + | 05/24/ | Clinical | [facility] | [place], | Cough (Primary Dx) | | 2020 | Support | CARE [address] | Tyrese Che MD | | | | | [place] | [address] | | | | | [id number] | [place] | | | | | [phone] | [address] | | | | | | | [...] + + + | Blood Pressure | - | - | | + + + + + | Pulse | 62 | 05/24/2020 4:11 PM | | | | | PDT | | + + + + + | Temperature | 36.1 C (96.9 F) | 05/24/2020 4:11 PM | | | | | PDT | | + + + + + | Respiratory Rate | - | - | | + + + + + | Oxygen Saturation | 97% | 05/24/2020 4:11 PM | | | | | PDT | | + + + + + | Inhaled Oxygen | - | - | | | Concentration | | | | + + + + + | Weight | - | - | | + + + + + | Height | - | - | | + + + + + | Body Mass Index | - | - | | + + + + + documented in this encounter Progress Notes Emery Hernandez RN - 05/24/2020 4:10 PM PDTFormatting of this note might be different f rom the original. [facility] Intake Form (RN) Affix Patient Label [] Photo ID Verified Patient Name:Bre Dowling Provider:MARILU FLORES URGENT NURSE :1930 Date:05/24/20 MyChart: Pending Activation Vitals: There were no vitals taken for this visit. RN History/Symptom Review (if available, RN to review patient chart): If any of these are true, patient must see provider in UC. [] Uncontrolled Diabetes Mellitus, with last A1c >8.0 or unknown [] COPD [] Current Cancer Treatment [] Immunosuppression [] Chronic Kidney Disease with GFR <50 mL/min [] Suspected Strep Throat [] Congestive Heart Failure [] Liver Disease [] Chronic Steroid Use [] Additional Evaluation Notes: covid screen. Testing Protocol: Proceed to testing if ANY of the following conditions are present: DRIVE THRU SWAB SCREENING [] Asymptomatic, regardless of age, pre-procedure screening only [] Asymptomatic, regardless of age, pre-travel screening only [] Asymptomatic testing requested by authorized [facility] personnel, [facility] Infection Preventio n Nurse or Caregiver Health [] Age 15-70 with any symptoms indicated in MA screening [x] Age >70 with Temp <100.4 F, O2 sat >95%, Pulse <100 bpm, without cough, Hx of fever, ch ills, chest pain, SOB, abdominal pain, vomiting or diarrhea. If only symptom is sore throat, body aches, headache and change in taste or smell ok for drive thru testing. PROVIDER EVALUATION REQUIRED [] Patient Requested [] Temp >102 F [] O2 Sat ? 95% [] Pulse > 100 [] Symptomatic with any listed comorbidities [] Dominant sore throat with little or no cough (strep rule out) [] Age <15 years old with symptoms [x] MA identified symptoms in screening that indicate testing (see MA intake) [] Symptom check completed - patient is asymptomatic - here for pre-procedure screening on ly Asymptomatic patients will NOT be screened regardless of exposure history, unless pre-proce dure or pre-travel screening is indicated. If dominant sore throat without cough, send to Urgent Care for provider evaluation and swab for strep (not provided at [facility]). Based on my assessment of both epidemiological and clinical factors, this patient [] IS /[ ] IS NOT a person under investigation (PUI) for COVID-19. Any persons tested for COVID-19 a re considered a PUI. Triage: Patient triaged to see provider in Urgent Care [] Yes [x] No Discharge: [x] Social Distancing/Quarantine Guidelines [x] Upper Respiratory Infection Self Care Instructions [x] Work Letter documented in this encounter Plan of Treatment Not on filedocumented as of this encounter Procedures + +--------+ + + + | Procedure Name | Priori | Date/Time | Associated Diagnosis | Comments | | | ty | | | | + +--------+ + + + | CORONAVIRUS | Routin | 05/24/2020 | Cough | Results for this | | (COVID-19) NAAT | e | 4:11 PM | | procedure are in the | | | | PDT | | results section. | + +--------+ + + + documented in this encounter Results Coronavirus (COVID-19) NAAT (05/24/2020 4:11 PM PDT) + + + + + + | Component | Value | Ref Range | Performed | Pathologist | | | | | At | Signature | + + + + + + | SARS-CoV-2, | Not DetectedComment: | Not Detected | REFERENCE | | | NAAT | Testing was performed | | LAB [facility] | | | (COVID-19) | using the nayana(R) | | - [facility] | | | | SARS-CoV-2 test.This | | | | | | test was developed and | | | | | | its performance | | | | | | characteristics | | | | | | determinedby [facility] | | | | | | Laboratories. This test | | | | | | has not been FDA cleared | | | | | | orapproved. This test | | | | | | has been authorized by | | | | | | FDA under an Emergency | | | | | | UseAuthorization (EUA). | | | | | | This test is only | | | | | | authorized for the | | | | | | duration oftime the | | | | | | declaration that | | | | | | circumstances exist | | | | | | justifying | | | | | | theauthorization of the | | | | | | emergency use of in | | | | | | vitro diagnostic tests | | | | | | fordetection of | | | | | | SARS-CoV-2 virus and/or | | | | | | diagnosis of COVID-19 | | | | | | infectionunder section | | | | | | 564(b)(1) of the Act, 21 | | | | | | U.S.C. 360bbb-3(b)(1), | | | | | | unlessthe authorization | | | | | | is terminated or revoked | | | | | | sooner.When diagnostic | | | | | | testing is negative, the | | | | | | possibility of a | | | | | | falsenegative result | | | | | | should be considered in | | | | | | the context of a | | | | | | patient'srecent | | | | | | exposures and the | | | | | | presence of clinical | | | | | | signs and | | | | | | symptomsconsistent with | | | | | | COVID-19. An individual | | | | | | without symptoms of | | | | | | COVID-19and who is not | | | | | | shedding SARS-CoV-2 | | | | | | virus would expect to | | | | | | have anegative (not | | | | | | detected) result in this | | | | | | assay. | | | | + + + + + + + + | Specimen | + + | Tissue - Specimen | | from throat | | (specimen) | + + + + + | Narrative | Performed At | + + + | Performed at: 01 - [facility] [address] | REFERENCE LAB | | [id number] Operations Administrative Assistant: Altagracia Marr MD, Phone: [phone] | [facility] | + + + + + + + + | Performing | Address | City/State/Zipcode | Phone Number | | Organization | | | | + + + + + | REFERENCE LAB | [id number] | [place], [place] | [phone] | | [facility] | [address] [facility] | [address] | | + + + + + documented in this encounter Visit Diagnoses + + | Diagnosis | + + | Cough - Primary | + + documented in this encounter Additional Health Concerns [...]
--- OUTSIDE RECORDS SUMMARY | ~2020-05-30 | XMS | Encounter Summary ---
Demographics + + + | Address | [address] | | | [place] [address] | + + + | Home Phone | | + + + | Preferred Language | Unknown | + + + | Marital Status | Unknown | + + + | Amish Affiliation | Unknown | + + + | Race | Unknown | + + + | Ethnic Group | Unknown | + + + Author + + + | Author | [facility] | | | and [place] | + + + | Organization | [facility] | | | and [...] Team Providers + +------+ + | Care Fishing Hand Name | Role | Phone | + +------+ + | Natalia Millan MD | PCP | | + +------+ + Reason for Visit + + + | Reason | Comments | + + + | Shortness of Breath | Room 7: Not breathing well this morning, hx of Asthma | + + + Encounter Details +--------+---------+ + + + | Date | Type | Department | Care Team | Description | +--------+---------+ + + + | 03/14/ | Office | [facility] | Renata, | SOB (shortness of | | 2020 | Visit | CARE [address] | [place] | breath) (Primary | | | | [place] | [address] | Dx); Positive D | | | | [id number] | [place] | dimer | | | | [phone] | [address] | | | | | | | | +--------+---------+ + + + Social History + +-------+ [...] + + + | Blood Pressure | 186/79 | 03/14/2020 11:55 AM | | | | | PDT | | + + + + + | Pulse | 58 | 03/14/2020 11:55 AM | | | | | PDT | | + + + + + | Temperature | 37.1 C (98.7 F) | 03/14/2020 11:55 AM | | | | | PDT | | + + + + + | Respiratory Rate | 16 | 03/14/2020 11:55 AM | | | | | PDT | | + + + + + | Oxygen Saturation | 98% | 03/14/2020 11:55 AM | | | | | PDT [...] + documented in this encounter Progress Notes Sofía Beal RN - 03/14/2020 11:45 AM PDTVerified name and date of of duncan bhat before provider orders were carried out. Venipuncture X1 left arm with 21 gauge butterfly needle. Patient tolerated well. [facility], Shasta Bowen, GENERAL LEDGER ACCOUNTANT - 03/14/2020 11:45 AM PDTFormatting of this note might be different f rom the original. Subjective: Bre Dowling is a 89 y.o. female who presents today with a chief complaint of Shortness of Breath (Room 7: Not breathing well this morning, hx of Asthma) . HPI Here for sob today, and for the last week. Does feel sob at rest. Was dx with asthma two mo nths ago by pcp and has been using flovent bid for two months but has not opened the albuter ol inhaler she got two months ago. Didn't know how or when to use the albuterol. She has bee n rinsing her mouth out after the flovent. She has been consistent with the flovent for two months. She feels it has been helping with her breathing. Two months ago her daughter notice d that she was breathing hard and went in. No hx of smoking, or lung disease. Chest xray in May 2019 was normal. Currently she is drinking normally, eating regular, slept good last night. No cough, no fever, no sore throat, no ear pain. No belly pain. Last bm was yesterday and w as normal, patient tends to be constipated. Patient lives in [place] , lives with her sig other. No chest pain, no exertional sob, short of breath is as rest. Walks three miles per day. No alcohol use. No hx of heart problems. Does have history of anxiety. Past Medical History: Diagnosis Date Actinic keratoses Alternating constipation and diarrhea Anal ulcer Asymptomatic varicose veins of lower extremity Basal cell carcinoma of trunk Bleeding hemorrhoids Bloating Contact dermatitis Fatigue Gastritis Hiatal hernia Hypercalcemia Hypercholesterolemia Hypertension Hypokalemia Osteopenia Osteoporosis Primary hypothyroidism Schatzki's ring Urinary incontinence Vitamin D deficiency Past Surgical History: Procedure Laterality Date COLONOSCOPY N/A 02/25/2018 Procedure: Colonoscopy, Flex Sig, Hemorrhoid Banding; Surgeon: Abilio Campos MD; Locati on: [facility] EGD AND COLONOSCOPY 04/25/2016 tortuous sigmoid colon, sigmoid diverticulosis, hemorrhoids, normal biopsies HYSTERECTOMY KNEE SURGERY Social History Socioeconomic History Marital status: Unknown Spouse name: Not on file Number of children: Not on file Years of education: Not on file Highest education level: Not on file Tobacco Use Smoking status: Never Smoker Smokeless tobacco: Never Used Substance and Sexual Activity Alcohol use: Never Frequency: Never Drug use: Never Current Outpatient Medications Medication Sig Dispense Refill albuterol 90 mcg/puff inhaler Inhale 2 puffs into the lungs every 4 hours as needed for Wheezing or Shortness of Breath. Use with spacer device. 1 Inhaler 0 cholecalciferol (VITAMIN D-3) 1,000 units capsule Take 1,000 Units by mouth Daily. cyanocobalamin (VITAMIN B-12) 100 MCG tablet Take 50 mcg by mouth Daily. FLOVENT HFA 220 MCG/ACT inhaler Take 2 puffs by mouth 2 times daily. 1 Inhaler 0 levothyroxine (SYNTHROID) 100 mcg tablet take 1 tablet by mouth once daily losartan (COZAAR) 100 MG tablet Take 100 mg by mouth Daily. Multiple Vitamins-Minerals (OCUVITE ADULT 50+ PO) Take by mouth. oxybutynin (DITROPAN XL) 5 mg 24 hr tablet take 3 tablets by mouth at bedtime Spacer/Aero-Holding Chambers (AEROCHAMBER PLUS EMIR-VU) [facility] No current facility-administered medications for this visit. No Known Allergies Review of Systems Constitutional: Negative for activity change, appetite change, fatigue and fever. HENT: Negative. Eyes: Negative. Respiratory: Positive for shortness of breath. Negative for cough, chest tightness and whee zing. Cardiovascular: Negative for chest pain, palpitations and leg swelling. Gastrointestinal: Negative. Genitourinary: Negative. Musculoskeletal: Negative. Skin: Negative. Neurological: Negative. Objective: BP 186/79 | Pulse 58 | Temp 37.1 C (98.7 F) (Temporal) | Resp 16 | SpO2 98% No LMP recorded. Patient is postmenopausal. Physical Exam Vitals signs reviewed. Constitutional: General: She is not in acute distress. Appearance: Normal appearance. She is well-developed and normal weight. She is not ill-a ppearing, toxic-appearing or diaphoretic. HENT: Head: Normocephalic and atraumatic. Nose: Nose normal. No congestion or rhinorrhea. Mouth/Throat: Mouth: Mucous membranes are moist. Dentition: Normal dentition. Pharynx: Oropharynx is clear. No oropharyngeal exudate or posterior oropharyngeal erythe ma. Tonsils: No tonsillar exudate. Eyes: Pupils: Pupils are equal, round, and reactive to light. Neck: Musculoskeletal: Normal range of motion and neck supple. No neck rigidity. Thyroid: No thyromegaly. Vascular: No carotid bruit. Trachea: Trachea normal. Cardiovascular: Rate and Rhythm: Normal rate and regular rhythm. Chest Wall: PMI is not displaced. Pulses: Normal pulses. Heart sounds: Normal heart sounds. No murmur. Pulmonary: Effort: No respiratory distress. Breath sounds: Normal breath sounds. No stridor. No wheezing, rhonchi or rales. Comments: Pursed lip breathing, rate of resps normal. Abdominal: Palpations: Abdomen is not rigid. Musculoskeletal: Normal range of motion. Lymphadenopathy: Cervical: No cervical adenopathy. Skin: General: Skin is warm and dry. Capillary Refill: Capillary refill takes less than 2 seconds. Findings: No rash. Neurological: General: No focal deficit present. Mental Status: She is alert and oriented to person, place, and time. Mental status is at baseline. Cranial Nerves: No cranial nerve deficit. Psychiatric: Mood and Affect: Mood normal. Speech: Speech normal. Behavior: Behavior normal. Behavior is cooperative. Results from last 24 hours: Recent Results (from the past 24 hour(s)) CBC no Differential Result Value Ref Range WBC 6.6 4.0 - 11.0 K/uL RBC 4.85 3.70 - 5.20 M/uL Hemoglobin 14.7 11.5 - 16.0 g/dL Hematocrit 42.9 34.0 - 47.0 % MCV 88.5 83.0 - 101.0 fL MCH 30.3 28.0 - 35.0 pg MCHC 34.3 32.0 - 36.0 g/dL RDW-CV 12.2 <15.0 % RDW-SD 39.4 35.1 - 46.3 fL Platelet Count 215 140 - 440 K/uL MPV 10.3 6.5 - 12.4 fL Comprehensive Metabolic Panel Result Value Ref Range Na 141 136 - 145 mmol/L K 4.1 3.5 - 5.1 mmol/L Cl 104 98 - 107 mmol/L CO2 27 21 - 32 mmol/L Anion Gap 10 2 - 16 mmol/L Glucose 113 (H) 74 - 106 mg/dL BUN 15 7 - 18 mg/dL Creatinine 1.10 (H) 0.55 - 1.02 mg/dL eGFR if not 47 (L) >=60 mL/min/1.73m2 Calcium 11.0 (H) 8.5 - 10.1 mg/dL Albumin 4.0 3.4 - 5.0 g/dL Bilirubin Total 1.5 (H) 0.2 - 1.0 mg/dL Total Protein 7.3 6.4 - 8.2 g/dL AST 16 15 - 37 U/L ALT 20 14 - 59 U/L Alkaline Phosphatase 67 46 - 116 U/L Globulin 3.3 2.1 - 3.8 g/dL Albumin/Globulin Ratio 1.2 0.8 - 2.0 BUN/Creatinine Ratio 13.6 D-Dimer Result Value Ref Range D-Dimer Quantitative 0.69 (H) <=0.50 ug/mL FEU Troponin I Result Value Ref Range Troponin I <0.02 <=0.06 ng/mL ECG 12 lead Result Value Ref Range INTERPRETATION TEXT Not Confirmed Assessment: 1. SOB (shortness of breath) Coronavirus (COVID-19) NAAT XR Chest 2 Vws CBC no Differential Comprehensive Metabolic Panel D-Dimer Troponin I ECG 12 lead 2. Positive D dimer Plan: Patient was taught by myself how to use the albuterol inhaler with spacer then she demonstr ated how to do the second puff. She does understand how to use the Flovent and rinse mouth. Gave 10 min of face to face education on inhaler use. She came in for a covid swab due to her being short of breath for seven days, but she has n o fever and no cough. Her records from Pcp are at clinic and I don't have easy acces to t hem, but she was seen two months ago and needs refill of her flovent. RX sent. We just open ed her albuterol so she has plenty of this. She did say she felt less sob when she used the albuterol in clinic today, howerver she is still doing pursed lip slow breathing. Ekg NSR without ischemia, cbc, cmp, troponin are all normal and d dimer, chest xray looks normal to me, however radiology overread is pending. D dimer is high today. Patient has no hx of dvt or PE but is short of breath for the last w burns paiute. Has known dx of asthma but is not using any albuterol until today, has been using flove nt. Sending patient to ER for evaluation of elevated D Dimer and sob this week. Patient will wear her mask when entering the ER and we had nurses staff call report to Xi and let them know this sob patient was coming over and that she had been swabbed for covid today. Jj zarate, Madie Barrera RN - 03/14/2020 11:45 AM PDTFormatting of this note might be different from t he original. [facility] COVID-19 [facility] Intake Form Affix Patient Label [] Photo ID Verified Patient Name:Bre Dowling Provider:[facility] :1930 Date:03/14/20 MyChart: Pending Activation Vitals: There were no vitals taken for this visit. RN History/Symptom Review (if available, RN to review patient chart): If any of these are true, patient must see provider in . [] Diabetes Mellitus [] COPD [] Current Cancer Treatment [] Immunosuppression [] Chronic Kidney Disease [] Suspected Strep Throat [] Congestive Heart Failure [] Liver Disease [] Chronic Steroid Use [] Additional Evaluation Notes: Patient states history of asthma, sob x1 wk no cough spo2 99 Altered respiration barrel breathing through mouth RR 30 Testing Protocol: Proceed to testing if ANY of the following conditions are present: [] History of possible COVID-19 exposure PLUS any of the following: [] History of fever [] Current fever >/= 100.4 F [] Any URI symptoms (cough, sore throat, runny nose, etc.) [] Current cough <10 days duration [] History of fever or temperature >/= 100.4 F AND any URI symptoms Asymptomatic patients will NOT be screened regardless of exposure history. If dominant sore throat without cough, send to Urgent Care for provider evaluation and swab for strep (not provided at [facility]). Based on my assessment of both epidemiological and clinical factors, this patient [x] IS / [] IS NOT a person under investigation (PUI) for COVID-19. Any persons tested for COVID-19 are considered a PUI. Triage: Patient triaged to see provider in Urgent Care [x] Yes [] No Discharge: [x] Social Distancing/Quarantine Guidelines [x] Upper Respiratory Infection Self Care Instructions [] Work Letter Catie Zepeda Manager Of Warehouse - 03/14/2020 11:45 AM [facility] COVID-19 [facility] Intake Form Affix Patient Label [] Photo ID Verified Patient Name:Bre Dowling Provider:[facility] :1930 Date:03/14/20 [] If <15 or >70 years of age, MUST be seen in clinic [] Intention to see provider [] Intention for screening at drive through [employer]: Pending Activation Vitals: There were no vitals taken for this visit. Symptom Screen: How many days have you been experiencing symptoms? 7 days [] Cough: duration of cough? days ? If symptoms or cough >10 days, send to for provider evaluation [] Fever >100.4 [] Runny Nose [] Sore Throat [] Body Aches [] Exposure to a person with confirmed COVID-19 If yes, details: [] Chest Pain, warm hand transfer to RN inside (Room 1 for triage) [] Abdominal Pain [] Nausea [] Vomiting [] Loss of Sense of Smell and/or Taste [] Healthcare worker [x] Shortness of breath, to be seen in urgent care for provider visit [] Other: Electr onically signed by Ramu Banerjee at 03/14/2020 2:42 PM Leighton almanza in this encounter Plan of Treatment Not on filedocumented as of this encounter Procedures + +--------+ + + + | Procedure Name | Priori | Date/Time | Associated Diagnosis | Comments | | | ty | | | | + +--------+ + + + | ECG 12 LEAD | Routin | 03/14/2020 | SOB (shortness of | Results for this | | | e | 1:07 PM | breath) | procedure are in [...] | + +--------+ + + + | TROPONIN I | STAT | 03/14/2020 | SOB (shortness of | Results for this | | | | 12:42 PM | breath) | procedure are in the | | | | PDT | | results section. | + +--------+ + + + | D-DIMER | STAT | 03/14/2020 | SOB (shortness of | Results for this | | | | 12:42 PM | breath) | procedure are in the | | | | PDT | | results section. | + +--------+ + + + | CBC NO DIFFERENTIAL | STAT | 03/14/2020 | SOB (shortness of | Results for this | | | | 12:42 PM | breath) | procedure are in the | | | | PDT | | results section. | + +--------+ + + + | COMPREHENSIVE | STAT | 03/14/2020 | SOB (shortness of | Results for this | | METABOLIC PANEL | | 12:42 PM | breath) | procedure are in the | | | | PDT | | results section. | + +--------+ + + + | CORONAVIRUS | Routin | 03/14/2020 | SOB (shortness of | Results for this | | (COVID-19) NAAT | e | 11:53 AM | breath) | procedure are in the | | | | PDT | | results section. | + +--------+ + + + documented in this encounter Results ECG 12 lead (03/14/2020 1:07 PM PDT) + + + + + + | Component | Value | Ref Range | Performed | Pathologist | | | | | At | Signature | + + + + + + | VENTRICULAR | 66 | BPM | [facility] | | | RATE EKG | | | | | + + + + + + | ATRIAL RATE | 66 | BPM | [facility] | | + + + + + + | P-R | 126 | ms | [facility] | | | INTERVAL | | | | | + + + + + + | QRS | 90 | ms | [facility] | | | DURATION | | | | | + + + + + + | Q-T | 456 | ms | [facility] | | | INTERVAL | | | | | + + + + + + | Q-T | 478 | ms | [facility] | | | INTERVAL | | | | | | (CORRECTED) | | | | | + + + + + + | P WAVE AXIS | 93 | degrees | [facility] | | + + + + + + | QRS AXIS | 70 | degrees | [facility] | | + + + + + + | T AXIS | 65 | degrees | [facility] | | + + + + + + | INTERPRETAT | Sinus rhythm with | | [facility] | | | ION TEXT | occasional premature | | | | | | ventricular | | | | | | complexesLong QTcNo | | | | | | previous ECGs | | | | | | availableConfirmed by | | | | | | ANNA MARIE HENRY MD ([id number]) | | | | | | on 03/15/2020 5:51:26 AM | | | | + + + + + + + + | Specimen | + + | | + + + + + | Narrative | Performed At | + + + | | | + + + + +---------+ + + | Performing | Address | City/State/Zipcode | Phone Number | | Organization | | | | + +---------+ + + | [facility] | | | | + +---------+ + + XR Chest 2 Vws (03/14/2020 1:04 PM [...] | | | + +---------+ + + Troponin I (03/14/2020 12:42 PM PDT) + + + + + + | Component | Value | Ref Range | Performed | Pathologist | | | | | At | Signature | + + + + + + | Troponin I | <0.02Comment: | <=0.06 ng/mL | [facility] | | | | Comment:Reference | | [facility] | | | | Ranges: 0.00-0.06 = | | MEDICAL | | | | NORMAL >0.06 = | | PARK | | | | SUSPICIOUS FOR | | LABORATORY | | | | MYOCARDIAL DAMAGE NOTE: | | | | | | Values greater than | | | | | | 0.78 ng/mL have been | | | | | | shown to be strongly | | | | | | associated with acute | | | | | | myocardial infarction. | | | | | | The [employer] | | | | | | Cardiology (ACC) | | | | | | recommends a decision | | | | | | limit of 0.06 ng/mL for | | | | | | this assay. Results | | | | | | greater than 0.06 can | | | | | | reflect a pre-infarct | | | | | | acute coronary syndrome, | | | | | | but can also reflect | | | | | | myocardial necrosis or | | | | | | injury that is not due | | | | | | to coronary artery | | | | | | disease. Some of these | | | | | | causes are sepsis, | | | | | | hypocolemia, atrial | | | | | | fibrillation, heart | | | | | | failure, pulmonary | | | | | | embolism, myocarditis, | | | | | | myocardial contusion, | | | | | | and renal failure. The | | | | | | diagnosis of myocardial | | | | | | infarction should be | | | | | | based on a combination | | | | | | of the patient's | | | | | | clinical presentation | | | | | | and the clinical | | | | | | laboratory test results | | | | | | (especially serial | | | | | | troponin levels). | | | | + + + + + + + + | Specimen | + + | Blood | + + + + + + + | Performing | Address | City/State/Zipcode | Phone Number | | Organization | | | | + + + + + | [facility] | [address] | [place] | [phone] | | [facility] | | [address] | | | [facility] | | | | + + + + + D-Dimer (03/14/2020 12:42 PM PDT) + + + + + + | Component | Value | Ref Range | Performed | Pathologist | | | | | At | Signature | + + + + + + | D-Dimer | 0.69 (H)Comment: This | <=0.50 ug/mL | [facility] | | | Quantitativ | quantitative D-Dimer | FEU | [facility] | | | e | assay has been evaluated | | MEDICAL | | | | for screening for | | CENTER - | | | | venous thrombotic | | LABORATORY | | | | disease, and may be | | | | | | useful in ruling out, | | | | | | but not ruling in | | | | | | disease. Values less | | | | | | than 0.50 ug/mL FEU | | | | | | (Fibrinogen Equivalent | | | | | | Units) have a negative | | | | | | predictive value of | | | | | | approximately 95% for | | | | | | ruling out large | | | | | | pulmonary emboli or | | | | | | proximal deep vein | | | | | | thrombosis. Distal DVT | | | | | | are not excluded. An | | | | | | elevated D-dimer can be | | | | | | present in patients with | | | | | | liver disease, | | | | | | , eclampsia, | | | | | | heart disease and some | | | | | | cancers among other | | | | | | conditions. The presence | | | | | | of rheumatoid factor at | | | | | | a level >50 IU/mL may | | | | | | falsely elevate the | | | | | | determined D-dimer | | | | | | levels. | | | | + + + + + + + + | Specimen | + + | Blood | + + + + + + + | Performing | Address | City/State/Zipcode | Phone Number | | Organization | | | | + + + + + | [facility] | [address] | [place] | [phone] | | [facility] | | [id number] | | | - LABORATORY | | | | + + + + + Comprehensive Metabolic Panel (03/14/2020 12:42 PM PDT) + + + + + + | Component | Value | Ref Range | Performed | Pathologist | | | | | At | Signature | + + + + + + | Na | 141 | 136 - 145 | [facility] | | | | | mmol/L | [facility] | | | | | | [facility] | | | | | | [facility] | | | | | | LABORATORY | | + + + + + + | K | 4.1 | 3.5 - 5.1 | [facility] | | | | | mmol/L | [facility] | | | | | | [facility] | | | | | | PARK | | | | | | LABORATORY | | + + + + + + | Cl | 104 | 98 - 107 mmol/L | [facility] | | | | | | [facility] | | | | | | [facility] | | | | | | [facility] | | | | | | LABORATORY | | + + + + + + | CO2 | 27 | 21 - 32 mmol/L | [facility] | | | | | | [facility] | | | | | | [facility] | | | | | | [facility] | | | | | | LABORATORY | | + + + + + + | Anion Gap | 10 | 2 - 16 mmol/L | [facility] | | | | | | [facility] | | | | | | [facility] | | | | | | [facility] | | | | | | LABORATORY | | + + + + + + | Glucose | 113 (H) | 74 - 106 mg/dL | [facility] | | | | | | [facility] | | | | | | [facility] | | | | | | P[facility] | | | | | | LABORATORY | | + + + + + + | BUN | 15 | 7 - 18 mg/dL | [facility] | | | | | | [facility] | | | | | | [facility] | | | | | | [facility] | | | | | | LABORATORY | | + + + + + + | Creatinine | 1.10 (H) | 0.55 - 1.02 | [facility] | | | | | mg/dL | [facility] | | | | | | [facility] | | | | | | PARK | | | | | | LABORATORY | | + + + + + + | eGFR if not | 47 (L)Comment: | >=60 | [facility] | | | | GLOMERULAR FILTRATION | mL/min/1.73m2 | [facility] | | | MALDIVIAN | RATE,ESTIMATED | | MEDICAL | | | | mL/min/1.34r3Vgks than | | PARK | | | | 60 Chronic kidney | | LABORATORY | | | | disease,if found over a | | | | | | 3-month period.Less than | | | | | | 15 Kidney failureFor | | | | | | | | | | | | Americans,multiply the | | | | | | calculated GFR by 1.21. | | | | | | | | | | + + + + + + | Calcium | 11.0 (H) | 8.5 - 10.1 | [facility] | | | | | mg/dL | [facility] | | | | | | MED[facility] | | | | | | PARK | | | | | | LABORATORY | | + + + + + + | Albumin | 4.0 | 3.4 - 5.0 g/dL | [facility] | | | | | | [facility] | | | | | | [facility] | | | | | | [facility] | | | | | | LABORATORY | | + + + + + + | Bilirubin | 1.5 (H) | 0.2 - 1.0 mg/dL | [facility] | | | Total | | | [facility] | | | | | | [facility] | | | | | | [facility]ARK | | | | | | LABORATORY | | + + + + + + | Total | 7.3 | 6.4 - 8.2 g/dL | [facility] | | | Protein | | | [facility] | | | | | | [facility] | | | | | | PARK | | | | | | LABORATORY | | + + + + + + | AST | 16 | 15 - 37 U/L | [facility] | | | | | | [facility] | | | | | | [facility] | | | | | | PARK | | | | | | LABORATORY | | + + + + + + | ALT | 20 | 14 - 59 U/L | [facility] | | | | | | [facility] | | | | | | [facility] | | | | | | PARK | | | | | | LABORATORY | | + + + + + + | Alkaline | 67 | 46 - 116 U/L | [facility] | | | Phosphatase | | | [facility] | | | | | | MED[facility] | | | | | | PARK | | | | | | LABORATORY | | + + + + + + | Globulin | 3.3 | 2.1 - 3.8 g/dL | [facility] | | | | | | [facility] | | | | | | [facility] | | | | | | [facility] | | | | | | LABORATORY | | + + + + + + | Albumin/Yahaira | 1.2 | 0.8 - 2.0 | [facility] | | | bulin Ratio | | | [facility] | | | | | | [facility] | | | | | | PARK | | | | | | LABORATORY | | + + + + + + | BUN/Creatin | 13.6 | | [facility] | | | ine Ratio | | | [facility] | | | | | | [facility] | | | | | | [facility]ARK | | | | | | LABORATORY | | + + + + + + + + | Specimen | + + | Blood | + + + + + + + | Performing | Address | City/State/Zipcode | Phone Number | | Organization | | | | + + + + + | [facility] | [address] | [place] | [phone] | | [facility] | | [address] | | | [facility] | | | | + + + + + CBC no Differential (03/14/2020 12:42 PM PDT) + +-------+ + + + | Component | Value | Ref Range | Performed | Pathologist | | | | | At | Signature | + +-------+ + + + | WBC | 6.6 | 4.0 - 11.0 K/uL | [facility] | | | | | | [facility] | | | | | | [facility] | | | | | | [facility] | | | | | | LABORATORY | | + +-------+ + + + | RBC | 4.85 | 3.70 - 5.20 | [facility] | | | | | M/uL | [facility] | | | | | | [facility] | | | | | | [facility] | | | | | | LABORATORY | | + +-------+ + + + | Hemoglobin | 14.7 | 11.5 - 16.0 | [facility] | | | | | g/dL | [facility] | | | | | | [facility] | | | | | | [facility] | | | | | | LABORATORY | | + +-------+ + + + | Hematocrit | 42.9 | 34.0 - 47.0 % | [facility] | | | | | | [facility] | | | | | | [facility] | | | | | | [facility] | | | | | | LABORATORY | | + +-------+ + + + | MCV | 88.5 | 83.0 - 101.0 fL | [facility] | | | | | | [facility] | | | | | | [facility] | | | | | | [facility] | | | | | | LABORATORY | | + +-------+ + + + | MCH | 30.3 | 28.0 - 35.0 pg | [facility] | | | | | | [facility] | | | | | | [facility] | | | | | | [facility] | | | | | | LABORATORY | | + +-------+ + + + | MCHC | 34.3 | 32.0 - 36.0 | [facility] | | | | | g/dL | [facility] | | | | | | [facility] | | | | | | PARK | | | | | | LABORATORY | | + +-------+ + + + | RDW-CV | 12.2 | <15.0 % | [facility] | | | | | | [facility] | | | | | | [facility] | | | | | | PARK | | | | | | LABORATORY | | + +-------+ + + + | RDW-SD | 39.4 | 35.1 - 46.3 fL | [facility] | | | [facility] | | | | | | [facility] | | + +-------+ + + + | Platelet | 215 | 140 - 440 K/uL | [facility] | | | [facility] | | [facility] | [facility] | | | [facility] | | | | | | [facility] | | + +-------+ + + + | MPV | 10.3 | 6.5 - 12.4 fL | [facility] | | | | [facility] | | | [facility] | | | | | | [facility] | | + +-------+ + + + + + | Specimen | + + | Blood | + + + + + + + | Performing | Address | City/State/Zipcode | Phone Number | | Organization | | | | + + + + + | [facility] | [address] | [place] | [phone] | | [facility] | | [address] | | | [facility] | | | | + + + + + Coronavirus (COVID-19) JOSIE (03/14/2020 11:53 AM PDT) + + + + + + [...] revoked | | | | | | sooner. | | | | + + + + + + + + | Specimen | + + | Tissue - Entire | | nasopharynx (body | | structure) | + + + + + | Narrative | Performed At | + + + | Performed at: 01 - [facility] [address], [place] | REFERENCE LAB | | [id number] Branch Administrator: Jim Wallace MD, Phone: [phone] | [facility] | + + + + + + + + | Performing | Address | City/State/Zipcode | Phone Number | | Organization | | | | + + + + + | RE[facility]ENCE [facility] | [address] | [place], [place] | [phone] | | [facility] | [place] | [address] | | + + + + + documented in this encounter Visit Diagnoses + + | Diagnosis | + + | SOB (shortness of breath) - Primary Shortness of breath | + + | Positive D dimer Abnormal coagulation profile | + + documented in this encounter [...]
--- OUTSIDE RECORDS SUMMARY | ~2020-05-30 | XMS | Encounter Summary ---
Demographics + + + | Address | [address] | | | [place] [address] | + + + | Home Phone | | + + + | Preferred Language | Unknown | + + + | Marital Status | Unknown | + + + | Adventist Affiliation | Unknown | + + + | Race | Unknown | + + + | Ethnic Group | Unknown | + + + Author + + + | Author | [facility] | | | and [place] | + + + | Organization | [facility] | | | [...] Team Providers + +------+ + | Care Pigment Presser Name | Role | Phone | + +------+ + PCP | Unavailable | + +------+ + Encounter Details +--------+---------+ + + + | Date | Type | Department | Care Team | Description | +--------+---------+ + + + | 02/25/ | Surgery | [facility] | Abilio Campos MD | Colonoscopy, Flex | | 2018 | | MED CTR MP INTRA OP | [address] | Sig, Hemorrhoid | | | | [address] | [place], [place] | Banding | | | | [place], [place] | [address] | | | | | [address] | [phone] | | | | | [phone] | | | +--------+---------+ + + + [...] | | | + +---+---+---+ + + + | Sex Assigned at | Date Recorded | | | | + + + | Not on file | | + + + documented as of this encounter Last Filed Vital Signs + + + + + | Vital Sign | Reading | Time Taken | Comments | + + + + + | Blood Pressure | 146/71 | 02/25/2018 2:30 PM | | | | | PDT | | + + + + + | Pulse | 58 | 02/25/2018 2:40 PM | | | | | PDT | | + + + + + | Temperature | 36.6 C (97.9 F) | 02/25/2018 1:47 PM | | | | | PDT | | + + + + + | Respiratory Rate | 18 | 02/25/2018 2:40 PM | | | | | PDT | | + + + + + | Oxygen Saturation | 98% | 02/25/2018 2:40 PM | | | | | PDT | | + + + + + | Inhaled Oxygen | - | - | | | Concentration | | | | + + + + + | Weight | 62.7 kg (138 lb 3.7 | 02/25/2018 1:47 PM | | | | oz) | PDT | | + + + + + | Height | 165.1 cm (5' 5") | 02/25/2018 1:47 PM | | | | | PDT | | + + + + + | Body Mass Index | 23 | 02/25/2018 1:47 PM | | | | | PDT | | + + + + + documented in this encounter Medications at Time of Discharge + + + +---------+--------+ + | Medication | Sig | Dispensed | Refills | Start | End Date | | | | | | Date | | + + + +---------+--------+ + | cholecalciferol | Take 1,000 Units by | | 0 | | | | (VITAMIN D-3) 1,000 | mouth Daily. | | | | | | units capsule | | | | | | + + + +---------+--------+ + | cyanocobalamin | Take 50 mcg by mouth | | 0 | | | | (VITAMIN B-12) 100 | Daily. | | | | | | MCG tablet | | | | | | + + + +---------+--------+ + | losartan (COZAAR) | Take 100 mg by mouth | | 0 | | | | 100 MG tablet | Daily. | | | | | + + + +---------+--------+ + | Multiple | Take by mouth. | | 0 | | | | Vitamins-Minerals | | | | | | | (OCUVITE ADULT 50+ | | | | | | | PO) | | | | | | + + + +---------+--------+ + | levothyroxine | Take 88 mcg by mouth | | 0 | | | | (SYNTHROID) 88 mcg | every morning | | | | 0 | | tablet | (before breakfast). | | | | | + + + +---------+--------+ + documented as of this encounter H&P Abilio Patterson MD - 02/25/2018 11:48 AM PDTSURGICAL INTERIM HISTORY & PHYSICAL UPDATE Pt. Name/Age/: Bre Dowling 87 y.o. 1930 Date of admission: (Not on file) The current H&P was reviewed. The patient was reexamined. Re-evaluation of the patient co nfirms the necessity for the scheduled procedure. No change has occurred in the patient s condition since the H&P was completed less than 30 days ago. VERIFICATION OF CONSENT (PARQ) The patient counseled regarding the procedure, its indications, risks, potential complicat ions and alternatives. Any questions were answered. Consent was obtained. Electronically signed by: Abilio Campos MD, 02/25/2018 11:48 [facility] by Ab[facility] Campos MD at 02/25 11:49 AM PDTdocumented in this encounter Miscellaneous Notes Op Note - Abilio Campos MD - 02/25/2018 2:09 PM PDT PROCEDURE NOTE PATIENT: Bre Dowling DATE OF : 1930 DATE OF PROCEDURE: 02/25/18 REFERRING PROVIDER: Natalia Millan ENDOSCOPIST: Abilio Campos MD PROCEDURE PERFORMED: Flexible sigmoidoscopy With hemorrhoid banding INDICATION: Hemorrhoid bleed ANESTHESIA : none DESCRIPTION OF PROCEDURE: After the risks, benefits and alternatives of the procedure were thoroughly explained, info rmed consent was obtained. Digital rectal exam showed external hemorrhoids.. The Olympus g astroscope was introduced through the rectum and advanced to the sigmoid colon. The instru ment was then slowly withdrawn as the mucosa was fully examined. FINDINGS: Few sigmoid diverticulosis. Ulcerated internal hemorrhoids on retroflexion. 2 band were placed on 2 column of hemorrhoids using the variceal band ligation kit. Patient denies pain after the procedure The scope was then completely withdrawn from the patient and the procedure terminated. WITHDRAWAL TIME: 2 minutes QUALITY OF PREP: good COMPLICATIONS:none DIAGNOSTIC IMPRESSION: 1. Ulcerated internal hemorrhoids- s/p banding RECOMMENDATIONS: 1. Resume diet and medications. 2. Sitz bath 3. Stool softeners as needed 4. Call Dr. Campos's office if you develop increasing abdominal pain, fever or passage of co pious amount of blood per rectum. Repeat exam: pending on response to treatment CC: Natalia Yana Electronically signed Abilio Campos MD 02/25/2018 14:09 [facility] 2:2 1 PM PDTdocumented in this encounter Plan of Treatment Not on filedocumented as of this encounter Procedures + +--------+ + + + | Procedure Name | Priori | Date/Time | Associated Diagnosis | Comments | | | ty | | | | + +--------+ + + + | COLONOSCOPY | | 02/25/2018 | Hemorrhoids, | | | | | 2:06 PM | unspecified | | | | | PDT | hemorrhoid type | | + +--------+ + + + +---+--------+ | | Case | | | Notes | | | No | | | Sedati | | | on | +---+--------+ documented in this encounter Visit Diagnoses + + | Diagnosis | + + | Hemorrhoids, unspecified hemorrhoid type | + + documented in this encounter
--- OUTSIDE RECORDS SUMMARY | ~2020-05-30 | XMS | Encounter Summary ---
Demographics + + + | Address | [address] | | | [place] [address] | + + + | Home Phone | | + + + | Preferred Language | Unknown | + + + | Marital Status | Single | + + + | Restorationist Affiliation | Unknown | + + + | Race | White | + + + | Ethnic Group | Not or | + + + Author + + + | Author | [facility] | + + + | Organization | [facility] | + + + | Address | Unknown | + + + | Phone | Unavailable | + + + Support + + +---------+ + | Name | Relationship | Address | Phone | + + +---------+ + | Mindi Miller | ECON | Unknown | | + + +---------+ + Care Team Providers + +------+ + | Care Telecom Specialist Name | Role | Phone | + +------+ + | No Pcp Per Patient | PCP | Unavailable | + +------+ + Reason for Visit + + + | Reason | Comments | + + + | Research Study | | + + + Encounter Details +--------+ + + + + | Date | Type | Department | Care Team | Description | +--------+ + + + + | 05/15/ | Campaign Worker | Neurology at | Sridevi Szymanski, | Research exam | | 2016 | | [facility] & | [place] [address] | (Primary Dx) | | | | Healing [address] | [address] | | | | | Hilda Mailcode: CH8C | [place], [place] | | | | | [facility] | [address] | | | | | and Healing, | [phone] | | | | | Building | | | | | | Floor [place], [place] | | | | | | [address] | | | | | | [phone] | | | +--------+ + + + [...] Not on filedocumented as of this encounter Results VITAMIN B-12 (05/22/2016 10:41 AM PDT) + +-------+ + + + | Component | Value | Ref Range | Performed | Pathologist | | | | | At | Signature | + +-------+ + + + | VITAMIN B12 | 325 | 193 - 986 pg/mL | [facility] | | | | | | LABORATORY | | | | | | SERVICES, | | | | | | CORE | | + +-------+ + + + | COMMENT | 1 | | [facility] | | | (HEMO) | | | LABORATORY | | | | | | SERVICES, | | | | | | CORE | | + +-------+ + + + | COMMENT | 1 | | [facility] | | | (ICTERUS) | | | LABORATORY | | | | | | SERVICES, | | | | | | CORE | | + +-------+ + + + | COMMENT | 1 | | [facility] | | | (LIPEMIA) | | | LABORATORY | | | | | | SERVICES, | | | | | | CORE | | + +-------+ + + + + + | Specimen | + + | Blood - Blood | | (substance) | + + + + + | Narrative | Performed At | + + + | New method and performing lab effective 05/14/16. | [facility] | | | LABORAT[facility] | | | [address] | + + + + + + + + | Performing | Address | City/State/Zipcode | Phone Number | | Organization | | | | + + + + + | [facility] | [address] | [place] [address] | | | [facility] | [address] | | | + + + + + INR (05/22/2016 10:41 AM PDT) + +-------+ + + + | Component | Value | Ref Range | Performed | Pathologist | | | | | At | Signature | + +-------+ + + + | INR | 1.09 | 0.90 - 1.20 INR | [facility] | | | | | | LABORATORY | | | | | | SERVICES, | | | | | | CORE | | + +-------+ + + + + + | Specimen | + + | Blood - Blood | | (substance) | + + + + + | Narrative | Performed At | + + + | INR Therapeutic ranges for full anticoagulation: INR for | [facility] | | Venous Thromboembolism (2.0 - 3.0) INR INR for | LABORATORY | | most patients with mech. valves (2.5 - 3.5) INR | [facility] | + + + + + + + + | Performing | Address | City/State/Zipcode | Phone Number | | Organization | | | | + + + + + | [facility] | [address] | [place] [address] | | | SERVICES, [facility] | [address] | | | + + + + + TSH (05/22/2016 10:41 AM PDT) + +-------+ + + + | Component | Value | Ref Range | Performed | Pathologist | | | | | At | Signature | + +-------+ + + + | TSH | 2.15 | 0.44 - 6.90 | [facility] | | | | | mIU/L | LABORATORY | | | | | | SERVICES, | | | | | | CORE | | + +-------+ + + + + + | Specimen | + + | Blood - Blood | | (substance) | + + + + + | Narrative | Performed At | + + + | TSH reference ranges are influenced by a variety of environmental | [facility] | | influences, age, gender and ethnicity. The supplied reference limits | LABORATORY | | are based on published values utilizing a similar TSH assay, and | SERVICES, CORE | | should be interpreted with caution. | | + + + + + + + + | Performing | Address | City/State/Zipcode | Phone Number | | Organization | | | | + + + + + | [facility] | [address] | [place] [address] | | | [facility] [address] | [address] | | | + + + + + COMPLETE METABOLIC SET (NA,K,CL,CO2,BUN,CREAT,GLUC,CA,AST,ALT,BILI TOTAL,ALK PHOS,ALB,PROT TOTAL) (05/22/2016 10:41 AM PDT) + +---------+ + + + | Component | Value | Ref Range | Performed | Pathologist | | | | | At | Signature | + +---------+ + + + | GLUCOSE, | 104 (H) | 60 - 99 mg/dL | [facility] | | | PLASMA | | | LABORATORY | | | (LAB) | | | SERVICES, | | | | | | CORE | | + +---------+ + + + | BUN, PLASMA | 12 | 6 - 20 mg/dL | [facility] | | | (LAB) | | | LABORATORY | | | | | | SERVICES, | | | | | | CORE | | + +---------+ + + + | CREATININE | 0.92 | 0.60 - 1.10 | [facility] | | | PLASMA | | mg/dL | LABORATORY | | | (LAB) | | | SERVICES, | | | | | | CORE | | + +---------+ + + + | EGFR | >60 | >60 mL/min | [facility] | | | - | | | LABORATORY | | | MALAGASY | | | SERVICES, | | | | | | CORE | | + +---------+ + + + | EGFR NON | 58 (L) | >60 mL/min | [facility] | | | -ZAFAR | | | LABORATORY | | | RICAN | | | SERVICES, | | | | | | CORE | | + +---------+ + + + | SODIUM, | 128 (L) | 136 - 145 | [facility] | | | PLASMA | | mmol/L | LABORATORY | | | (LAB) | | | SERVICES, | | | | | | CORE | | + +---------+ + + + | POTASSIUM, | 3.0 (L) | 3.4 - 5.0 | [facility] | | | PLASMA | | mmol/L | LABORATORY | | | (LAB) | | | SERVICES, | | | | | | CORE | | + +---------+ + + + | CHLORIDE, | 93 (L) | 97 - 108 mmol/L | [facility] | | | PLASMA | | | LABORATORY | | | (LAB) | | | SERVICES, | | | | | | CORE | | + +---------+ + + + | TOTAL CO2, | 28 | 21 - 32 mmol/L | [facility] | | | PLASMA | | | LABORATORY | | | (LAB) | | | SERVICES, | | | | | | CORE | | + +---------+ + + + | CALCIUM, | 10.0 | 8.6 - 10.2 | [facility] | | | PLASMA | | mg/dL | LABORATORY | | | (LAB) | | | SERVICES, | | | | | | CORE | | + +---------+ + + + | BILIRUBIN | 1.3 (H) | 0.3 - 1.2 mg/dL | [facility] | | | TOTAL | | | LABORATORY | | | | | | SERVICES, | | | | | | CORE | | + +---------+ + + + | TOTAL | 7.1 | 6.4 - 8.2 g/dL | [facility] | | | PROTEIN, | | | LABORATORY | | | PLASMA | | | SERVICES, | | | (LAB) | | | CORE | | + +---------+ + + + | ALBUMIN, | 3.8 | 3.5 - 4.7 g/dL | [facility] | | | PLASMA | | | LABORATORY | | | (LAB) | | | SERVICES, | | | | | | CORE | | + +---------+ + + + | ALK PHOS | 51 (L) | 53 - 141 U/L | [facility] | | | | | | LABORATORY | | | | | | SERVICES, | | | | | | CORE | | + +---------+ + + + | AST(SGOT) | 18 | <=41 U/L | [facility] | | | | | | LABORATORY | | | | | | SERVICES, | | | | | | CORE | | + +---------+ + + + | ALT (SGPT) | 17 | <=60 U/L | [facility] | | | | | | LABORATORY | | | | | | SERVICES, | | | | | | CORE | | + +---------+ + + + | ANION GAP | 7 | mmol/L | [facility] | | | | | | LABORATORY | | | | | | SERVICES, | | | | | | CORE | | + +---------+ + + + | ANION | 7 | 4 - 11 mmol/L | [facility] | | | GAP(ALB | | | LABORATORY | | | CORRECTED) | | | SERVICES, | | | | | | CORE | | + +---------+ + + + | POTASSIUM | No Hemo | | [facility] | | | CMNT | | | LABORATORY | | | | | | SERVICES, | | | | | | CORE | | + +---------+ + + + | BILI T CMNT | No Hemo | | [facility] | | | | | | LABORATORY | | | | | | SERVICES, | | | | | | CORE | | + +---------+ + + + | AST CMNT | No Hemo | | [facility] | | | | | | LABORATORY | | | | | | SERVICES, | | | | | | CORE | | + +---------+ + + + + + | Specimen | + + | Blood - Blood | | (substance) | + + + + + | Narrative | Performed At | + + + | GFR is estimated using the MDRD equation recommended by the | [facility] | | National Kidney Disease Education Program. Estimated GFR | LABORATORY | | Interpretive Information: <60 mL/min/1.73 sq m | SERVICES, CORE | | Chronic Kidney Disease <15 mL/min/1.73 sq m | | | Kidney Failure Estimated GFR greater that 60 mL/min/1.73 sq m is of | | | limited clinical value. The MDRD equation is not valid in the | | | following situations: - Patients under 18 years of age - Severe | | | malnutrition or obesity - Vegetarian diet - Rapidly changing kidney | | | function | | + + + + + + + + | Performing | Address | City/State/Zipcode | Phone Number | | Organization | | | | + + + + + | [facility] | [address] | [place] [address] | | | SERVICES, CORE | [address] | | | + + + + + documented in this encounter Visit Diagnoses + + | Diagnosis | + + | Research exam - Primary Examination of participant in clinical trial | + + documented in this encounter"
--- OUTSIDE RECORDS SUMMARY | ~2020-05-30 | XMS | Encounter Summary ---
Demographics + + + | Address | [address] | | | [place] [address] | + + + | Home Phone | | + + + | Preferred Language | Unknown | + + + | Marital Status | Single | + + + | Anglican Affiliation | Unknown | + + + | Race | White | + + + | Ethnic Group | Not or | + + + Author + + + | Author | [facility] | + + + | Organization | [facility] | + + + | Address | Unknown | + + + | Phone | Unavailable | + + + Support + + +---------+ + | Name | Relationship | Address | Phone | + + +---------+ + | Mindi Miller | ECON | Unknown | | + + +---------+ + Care Team Providers + +------+ + | Care Parts Department Supervisor Name | Role | Phone | + [...]
--- OUTSIDE RECORDS SUMMARY | ~2020-05-30 | XMS | Encounter Summary ---
Demographics + + + | Address | [address] | | | [place] [address] | + + + | Home Phone | | + + + | Preferred Language | Unknown | + + + | Marital Status | Single | + + + | Methodist Affiliation | Unknown | + + + [...] Team Providers + +------+ + | Care Hand Washer Name | Role | Phone | + +------+ + | No Pcp Per Patient | PCP | Unavailable | + +------+ + Encounter Details +--------+ + + + + | Date | Type | Department | Care Team | Description | +--------+ + + + + | 08/20/ | Hospital | Dermatopathology | | | | 2016 | Encounter | [address] | | | | | | Mailcode: CH16D | | | | | | [place] [facility] | | | | | | and Healing, | | | | | | [facility] [address], [facility] | | | | | | [place], [place] | | | | | | [address] | | | | | | [phone] | | | +--------+ + + + [...] + + documented as of this encounter Medications at Time of Discharge + + + +---------+ + + | Medication | Sig | Dispensed | Refills | Start | End Date | | | | | | Date | | + + + +---------+ + + | LORazepam 0.5 mg | Take 1 tablet by | 1 | 0 | 05/16/20 | | | oral tablet | mouth 30 minutes | tablet | | 16 | | | | before MRI. | | | | | + + + +---------+ + + documented as of this encounter Plan of Treatment Not on filedocumented as of this encounter Procedures + +--------+ + + + | Procedure Name | Priori | Date/Time | Associated Diagnosis | Comments | | | ty | | | | + +--------+ + + + | DERM PATHOLOGY | Routin | 08/20/2016 | | Results for this | | | e | | | procedure are in the | | | | | | results section. | + +--------+ + + + documented in this encounter Results DERM PATHOLOGY (08/20/2016) + + + + + + | Component | Value | Ref Range | Performed | Pathologist | | | | | At | Signature | + + + + + + | DERMATOPATH | SOURCE OF SPECIMEN:A Rt. | | [facility] | | | OLOGY(WET | lateral arm, shave | | DERMATOPATH | | | MNT) | biopsy CLINICAL | | OLOGY | | | | DESCRIPTION:6 x 7 mm | | | | | | pink papule; r/o SCC vs | | | | | | SCCis. GROSS | | | | | | DESCRIPTION:Received in | | | | | | formalin is a specimen | | | | | | labeled Bre Dowling:A: | | | | | | Specimen is labeled "R | | | | | | lateral arm" and | | | | | | consists of an irregular | | | | | | shaveof papular | | | | | | hzchq-kic-zrtt-baker skin, | | | | | | [id number]. The surgical | | | | | | margin is inkedblack; | | | | | | the tissue is bisected, | | | | | | and entirely submitted | | | | | | in cassette A1. | | | | | | MICROSCOPIC | | | | | | DESCRIPTION:There is an | | | | | | asymmetric, poorly | | | | | | circumscribed neoplasm | | | | | | characterized | | | | | | byirregularly sized | | | | | | aggregates of atypical | | | | | | epithelial cells within | | | | | | thedermis. The | | | | | | epithelial cell nuclei | | | | | | are pleomorphic and | | | | | | hyperchromatic andmost | | | | | | of the cells have | | | | | | eosinophilic cytoplasm. 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 | | | | | | NOTE: The squamous cell | | | | | | carcinoma extends to the | | | | | | specimen base. | | | | | | KPW:[id number] My | | | | | | electronic signature | | | | | | indicates that I have | | | | | | personally reviewed | | | | | | alldiagnostic slides, | | | | | | the gross and/or | | | | | | microscopic portion of | | | | | | thisreport and | | | | | | formulated the final | | | | | | diagnosis. | | | | | | Rendering Diagnostician: | | | | | | Nasir Higgins | | | | | | Devin | | | | | | saman Signed 08/22/2016 | | | | | | 5:27PM | | | | + + + [...] + + + + + | [facility] | [address] | [place] [address] | | | DERMATOPATHOLOGY | [address] | | | + + + + + documented in this encounter Visit Diagnoses Not on filedocumented in this encounter
--- OUTSIDE RECORDS SUMMARY | ~2020-05-30 | XMS | Encounter Summary ---
Demographics + + + | Address | [address] | | | [place] [address] | + + + | Home Phone | | + + + | Preferred Language | Unknown | + + + | Marital Status | Single | + + + | Taoist Affiliation | Unknown | + + + | Race | White | + + + | Ethnic Group | Not or | + + + Author + + + | Author | [facility] | + + + | Organization | [facility] | + + + | Address | Unknown | + + + | Phone | Unavailable | + + + Support + + +---------+ + | Name | Relationship | Address | Phone | + + +---------+ + | Mindi Miller | ECON | Unknown | | + + +---------+ + Care Team Providers + +------+ + | Care Sheep Sorter Name | Role | Phone | + [...] [facility] | | | | | | [place] for [facility] | | | | | | and Healing, | | | | | | [facility], city hospital | | | | | | [place], [place] | | | | | | [address] | | | | | | [phone] | | | +--------+ + + + [...] papular | | | | | | ktkta-nhh-mayh-baker skin, | | | | | | [id number]. The surgical | | | | | [...] [facility] | [address] | [place] [address] | | | DERMATOPATHOLOGY | [address] | | | + + + + + documented in this encounter Visit Diagnoses Not on filedocumented in this encounter
--- OUTSIDE RECORDS SUMMARY | ~2020-05-30 | XMS | Encounter Summary ---
Demographics + + + | Address | [address] | | | [place] [address] | + + + | Home Phone | | + + + | Preferred Language | Unknown | + + + | Marital Status | Unknown | + + + | Pentecostalism Affiliation | Unknown | + + + | Race | Unknown | + + + | Ethnic Group | Unknown | + + + Author + + + | Author | [facility] | | | and [place] | + + + | Organization | [facility] | | | [...] Providers + +------+ + | Care Senior Project Accountant Name | Role | Phone | + +------+ + PCP | Unavailable | + +------+ + Encounter Details +--------+ + + + + | Date | Type | Department | Care Team | Description | +--------+ + + + + | 02/25/ | Hospital | [facility] | Abilio Campos MD | | | 2018 | Encounter | MED CTR MP INTRA OP | [address] | | | | | [address] | [place] | | | | | [place] | [address] | | | | | [address] | [phone] | | | | | [phone] | | | +--------+ + + + [...] + documented as of this encounter H&P Notes Abilio Campos MD - 02/25/2018 11:48 AM PDTSURGICAL INTERIM [...] by: Abilio Campos MD, 02/25/2018 11:48 [facility]ron[facility] signed by Abilio Campos MD at 02/25 [...] pending on response to treatment CC: Natalia Millan Electronically signed Abilio Campos MD 02/25/2018 14:09 [facility] signed by Abilio Campos MD at 02/25/2018 2:2 1 PM PDTdocumented in this encounter [...] +---+--------+ documented in this encounter Visit Diagnoses Not on filedocumented in this encounter
--- OUTSIDE RECORDS SUMMARY | ~2020-05-30 | XMS | Clinical Summary ---
Demographics + + + | Address | [address] | | | [place] [address] | + + + | Home Phone | | + + + | Preferred Language | Unknown | + + + | Marital Status | Single | + + + | Denominational Affiliation | Unknown | + + + | Race | White | + + + | Ethnic Group | Not or | + + + Author + + + | Author | [facility] | + + + | Organization | [facility] | + + + | Address | Unknown | + + + | Phone | Unavailable | + + + Support + + +---------+ + | Name | Relationship | Address | Phone | + + +---------+ + | Mindi Miller | ECON | Unknown | | + + +---------+ + Care Team Providers + +------+ + | Care Grommet Man Name | Role | Phone | + +------+ + | No Pcp Per Patient | PCP | Unavailable | + +------+ + Source Comments [facility] is fully live on both [facility] and [facility] Allergies No Known Allergies Medications + + + +---------+------+------+-------+ | Medication | Sig | Dispensed | Refills | Star | End | Statu | | | | | | t | Date | s | | | | | | Date | | | + + + +---------+------+------+-------+ | LORazepam 0.5 mg | Take 1 tablet by | 1 | 0 | 06/1 | | Activ | | oral tablet | mouth 30 minutes | tablet | | 6/20 | | e | | | before MRI. | | | 16 | | | + + + +---------+------+------+-------+ Active Problems Not on file Social History + +-------+ +--------+------+ | Tobacco [...] recent travel history available. | + + Last Filed Vital Signs Not on file Plan of Treatment + + + + + | Health Maintenance | Due Date | Last Done | Comments | + + + + + | Pneumococcal | | | | | vaccination (1 of 2 | 7 | | | | - PCV13) | | | | + + + + + | Influenza (Flu) | | | | | vaccination (#1) | 9 | | | + + + + + Results Not on filefrom Last 3 Months Insurance + +--------+ +--------+ + +--------+ | Payer | Benefi | Subscriber | Effect | Phone | Address | Type | | | t Plan | ID | tiarra | | | | | | / | | Dates | | | | | | Group | | | | | | + +--------+ +--------+ + +--------+ | MEDICARE | MEDICA | xxxxxxxxxx | 03/01/19 | [phone] | [address] | Medica | | | RE A & | | [address] | 1 | [address] | re | | | B | | sent | | [place] | | | | | | | | [address] | | + +--------+ +--------+ + +--------+ | BLUE CROSS BLUE | BCBS | xxxxxxxxxxx | | [phone] | [address] | PPO | | SHIELD | OUT OF | xx | 016-Pr | 8 | [address] | | | | STATE | | esent | | [place], | | | | | | | | [place] | | | | | | | | [address] | | + +--------+ +--------+ + +--------+ + +--------+ +--------+ + + | Guarantor Name | Accoun | Relation to | Date | Phone | Billing Address | | | t Type | Patient | of | | | | | | | | | | + +--------+ +--------+ + + | Bre Dowling | Person | Self | [birth year] | [address] | | | giorgio/Bandar | | 1930 | [phone] | [address] [place] | | | nir | | | [address] (Home) | [place] [address] | + +--------+ +--------+ + +"
--- OUTSIDE RECORDS SUMMARY | ~2020-05-30 | XMS | Encounter Summary ---
Demographics + + + | Address | [address] | | | [place] [address] | + + + | Home Phone | | + + + | Preferred Language | Unknown | + + + | Marital Status | Single | + + + | Religion Affiliation | Unknown | + + + | Race | White | + + + | Ethnic Group | Not or | + + + Author + + + | Author | [facility] | + + + | Organization | [facility] | + + + | Address | Unknown | + + + | Phone | Unavailable | + + + Support + + +---------+ + | Name | Relationship | Address | Phone | + + +---------+ + | Mindi Miller | ECON | Unknown | | + + +---------+ + Care Team Providers + +------+ + | Care Structural Analyst Name | Role | Phone | + [...] + + + + | 05/15/ | Calibrator Barometers | Neurology at | Sridevi Szymanski, | Research exam | | 2016 | | [facility] & | [place] [address] | (Primary Dx) | | | | Healing [address] | [address] | | | | | Hilda Mailcode: CH8C | [place], [place] | | | | | [facility] | [address] | | | | | and Healing, | [phone] | | | | | Building | | | | | | Floor [place], [place] | | | | | | [address] | | | | | | [phone] | | | +--------+ + + + [...] [facility] | [address] | [place] [address] | | | GIACOMO VELAZQUEZ | [address] [...] [facility] | [address] | [place] [address] | | | SERVICES, GIACOMO | JILL [...] [facility] | [address] | [place] [address] | | | GIACOMO VELAZQUEZ | JILL [...] | | | LABORATORY | | | GUINEAN | | | SERVICES, | | | [...] | + + + + + | [facility] | [address] | [place] [address] | | | SERVICES, CORE | [address] | | | + + + + + documented in this encounter Visit Diagnoses + + | Diagnosis | + + | Research exam - Primary Examination of participant in clinical trial | + + documented in this encounter"
--- OUTSIDE RECORDS SUMMARY | ~2020-05-30 | XMS | Encounter Summary ---
Demographics + + + | Address | [address] | | | [place] [address] | + + + | Home Phone | | + + + | Preferred Language | Unknown | + + + | Marital Status | Unknown | + + + | Hinduism Affiliation | Unknown | + + + | Race | Unknown | + + + | Ethnic Group | Unknown | + + + Author + + + | Author | [facility] | | | and [place] | + + + | Organization | [facility] | | | [...] Team Providers + +------+ + | Care Furniture Polisher Name | Role | Phone | + [...] | | | | | [place] [address] | [place] | | | | | [phone] | [address] | | | | | | | [...] | Procedure Note | + + | Keivn, Rad Results In - 03/14/2020 2:54 PM [...]
--- OUTSIDE RECORDS SUMMARY | ~2020-05-30 | XMS | Encounter Summary ---
Demographics + + + | Address | [address] | | | [place] [address] | + + + | Home Phone | | + + + | Preferred Language | Unknown | + + + | Marital Status | Single | + + + | Sikhism Affiliation | Unknown | + + + | Race | White | + + + | Ethnic Group | Not or | + + + Author + + + | Author | [facility] | + + + | Organization | [facility] | + + + | Address | Unknown | + + + | Phone | Unavailable | + + + Support + + +---------+ + | Name | Relationship | Address | Phone | + + +---------+ + | Mindi Miller | ECON | Unknown | | + + +---------+ + Care Team Providers + +------+ + | Care Culinary Arts Instructor Name | Role | Phone | + +------+ + | No Pcp Per Patient | PCP | Unavailable | + +------+ + Encounter Details +--------+ + + + + | Date | Type | Department | Care Team | Description | +--------+ + + + + | 02/05/ | Documentati | NON[facility] | Unknown [...]
--- OUTSIDE RECORDS SUMMARY | ~2020-05-30 | XMS | Encounter Summary ---
Demographics + + + | Address | [address] | | | [place] [address] | + + + | Home Phone | | + + + | Preferred Language | Unknown | + + + | Marital Status | Unknown | + + + | Restorationist Affiliation | Unknown | + + + | Race | Unknown | + + + | Ethnic Group | Unknown | + + + Author + + + | Author | [facility] | | | and [place] | + + + | Organization | [facility] | | | [...] Team Providers + +------+ + | Care Rental Car Deliverer Name | Role | Phone | + +------+ + | Dawn Bradford MD | PCP | Unavailable | + +------+ + Reason for Visit +--------+ + | Reason | Comments | +--------+ + | Cough | | +--------+ + Encounter Details +--------+ + + + + | Date | Type | Department | Care Team | Description | +--------+ + + + + | 05/13/ | Emergency | [facility] | Arnaldo Roque | Cough (Primary Dx); | | 2019 | [facility] | Nelson Haque MD | Bronchitis | | | | CENTER [address] | [address] | | | | | [place], [place] | [place], [place] | | | | | [address] | [address] | | | | | [phone] | | | +--------+ + + + [...] + + + | Blood Pressure | 135/58 | 05/13/2019 11:04 AM | | | | | PDT | | + + + + + | Pulse | 75 | 05/13/2019 11:04 AM | | | | | PDT | | + + + + + | Temperature | 36.1 C (97 F) | 05/13/2019 10:06 AM | | | | | PDT | | + + + + + | Respiratory Rate | 18 | 05/13/2019 11:04 AM | | | | | PDT | | + + + + + | Oxygen Saturation | 99% | 05/13/2019 11:04 AM | | | | | PDT | | + + + + + | Inhaled Oxygen | - | - | | | Concentration | | | | + + + + + | Weight | 61.2 kg (135 lb) | 05/13/2019 10:06 AM | | | | | PDT | | + + + + + | Height | - | - | | + + + + + | Body Mass Index | 22.47 | 02/25/2018 1:47 PM | | | | | PDT | | + + + + + documented in this encounter Discharge Instructions Instructions Arnaldo Roque MD - 05/13/2019Return for worsening cough, shortn ess of breath difficulty breathing or other worsening symptoms. Please follow-up with your primary care physician. documented in this encounter Medications at Time [...] + | | | | 0 | 05/13/20 | | | Spacer/Aero-Holding | | | | 19 | | | Chambers | | | | | | | (AEROCHAMBER PLUS | | | | | | | EMIR-VU) MISC | | | | | | + + + +---------+ + + | levoFLOXacin | Take 1 tablet by | 5 | 0 | 05/13/20 | | | (LEVAQUIN) 500 mg | mouth Daily for 5 | tablet | | 19 | 9 | | tablet | days. | | | | | + + + +---------+ + + | levothyroxine | Take 88 mcg by mouth | | 0 | | | | (SYNTHROID) 88 mcg | every morning | | | | 0 | | tablet | (before breakfast). | | | | | + + + +---------+ + + | predniSONE | Take 2 tablets by | 60 | 0 | 05/13/20 | | | (DELTASONE) 20 mg | mouth Daily for 3 | tablet | | 19 | 9 | | tablet | days. | | | | | + + + +---------+ + + documented as of this encounter ED Notes Arnaldo Roque MD - 05/13/2019 11:31 AM PDTFormatting of this note might be d ifferent from the original. [facility] Bre Dowling Emergency Department Encounter Note [address] [place] [id number] PCP:Dawn Bradford MD [phone] eMERGENCY dEPARTMENT eNCOUnter CHIEF COMPLAINT Chief Complaint Patient presents with Cough TRIAGE ED Triage Notes, ED Triage Notes Reymundo Cheng RN 05/13/2019 10:11 Pt reports sore throat starting in March. Progressed to cough that will not go away. Reports green mucous. HPI Bre Dowling is a 89 y.o. female who presents with persistent cough for approximately 1 mo nth. Patient has some green sputum production. Patient has ongoing cough with some intermi ttent shortness of breath. Patient does not appear to be in acute distress currently but do es have ongoing irritating cough. Patient denies any fever or chills. She has some intermittent shortness of breath. She wells s no shortness of breath with ambulation. Her oxygen saturation is adequate on room air. PAST MEDICAL HISTORY Past Medical History: Diagnosis Date Actinic keratoses Alternating constipation and diarrhea Anal ulcer Asymptomatic varicose veins of lower extremity Basal cell carcinoma of trunk Bleeding hemorrhoids Bloating Contact dermatitis Fatigue Gastritis Hiatal hernia Hypercalcemia Hypercholesterolemia Hypertension Hypokalemia Osteopenia Osteoporosis Primary hypothyroidism Schatzki's ring Urinary incontinence Vitamin D deficiency SURGICAL HISTORY Past Surgical History: Procedure Laterality Date COLONOSCOPY N/A 02/25/2018 Procedure: Colonoscopy, Flex Sig, Hemorrhoid Banding; Surgeon: Abilio Campos MD; Locati on: [facility] MEDICAL PROCEDURE UNIT EGD AND COLONOSCOPY 04/25/2016 tortuous sigmoid colon, sigmoid diverticulosis, hemorrhoids, normal biopsies HYSTERECTOMY KNEE SURGERY CURRENT MEDICATIONS MEDICAL INSURANCE BILLER Home Medications Medication Sig cholecalciferol (VITAMIN D-3) 1,000 units capsule Take 1,000 Units by mouth Daily. cyanocobalamin (VITAMIN B-12) 100 MCG tablet Take 50 mcg by mouth Daily. levothyroxine (SYNTHROID) 88 mcg tablet Take 88 mcg by mouth every morning (before francis kfast). losartan (COZAAR) 100 MG tablet Take 100 mg by mouth Daily. Multiple Vitamins-Minerals (OCUVITE ADULT 50+ PO) Take by mouth. ALLERGIES No Known Allergies FAMILY HISTORY History reviewed. No pertinent family history. SOCIAL HISTORY Social History Socioeconomic History Marital status: Unknown Spouse name: Not on file Number of children: Not on file Years of education: Not on file Highest education level: Not on file Tobacco Use Smoking status: Never Smoker Smokeless tobacco: Never Used Substance and Sexual Activity Alcohol use: Never Frequency: Never Drug use: Never REVIEW OF SYSTEMS Please see HPI, All systems negative except as marked. Twelve point review of system comp leted my me. PHYSICAL EXAM VITAL SIGNS: Temp: 36.1 C (97 F) Pulse: 66 Resp: 18 SpO2: 99 % BP: 153/88 Constitutional: Well developed, Well nourished, Non-toxic appearance. HENT: Normocephalic, Atraumatic, Bilateral external ears normal, Oropharynx moist, No oral exudates, Nose normal. Neck- Normal range of motion, No tenderness, Supple, No stridor. Eyes: PERRL, EOMI, Conjunctiva normal, No discharge. Respiratory: Mild wheezing bilateral lung sounds. No increased work of breathing., No ches t tenderness. Cardiovascular: Normal heart rate, Normal rhythm, [...] deficits noted, no facial assymetry noted. Equal internal medicine nurse practitioner in all extremities RADIOLOGY test x-ray no effusion no infiltrate normal cardiac silhouette. No results found. ED COURSE & MEDICAL DECISION MAKING Pertinent Labs & Imaging studies reviewed. (See chart for details) Nursing notes reviewed. Patient with intermittent cough. Patient has a cough with some sputum production. Chest x -ray is unremarkable. Patient's had a cough for greater than 1 month. At this point I am p lacing the patient on some Levaquin as well as giving the patient a prescription for an inha ler and starting her on some steroids for 3 days. She does not appear to be in acute distre ss at this time. She is encouraged to follow-up with her primary care physician. At this p oint patient is otherwise stable. New Prescriptions ALBUTEROL 90 MCG/PUFF INHALER Inhale 2 puffs into the lungs every 4 hours as needed for Wheezing or Shortness of Breath. Use with spacer device. LEVOFLOXACIN (LEVAQUIN) 500 MG TABLET Take 1 tablet by mouth Daily for 5 days. PREDNISONE (DELTASONE) 20 MG TABLET Take 2 tablets by mouth Daily for 3 days. Discharge Instructions Return for worsening cough, shortness of breath difficulty breathing or other worsening sym ptoms. Please follow-up with your primary care physician. FINAL IMPRESSION 1. Cough Acute 2. Bronchitis Acute Portions of this chart may have been created with [employer] voice recognition software. Occasi onal wrong-word or sound-alike substitutions may have occurred due to the inherent rodríguez itations of voice recognition software. Please read the chart carefully and recognize, using context, where these substitutions have occurred Arnaldo Roque MD 05/13/19 1137 inig, Jimbo Waters RN - 05/13/2019 10:04 AM PDTPt reports sore throat starting in March. Progressed to cough that will not go away. Reports green mucous. Electronically signed by Reymundo Cheng RN at 10:11 AM PDTdocumented in this encounter Plan of Treatment Not on filedocumented as of this encounter Procedures + +--------+ + + + | Procedure Name | Priori | Date/Time | Associated Diagnosis | Comments | | | ty | | | | + +--------+ + + + | XR CHEST PA AND | STAT | 05/13/2019 | | Results for this | | LATERAL | | 11:21 AM | | procedure are in the | | | | PDT | | results section. | + +--------+ + + + | RT PEAK FLOW | Routin | 05/13/2019 | | | | | e | 10:30 AM | | | | | | PDT | | | + +--------+ + + + documented in this encounter Results XR Chest PA and Lateral (05/13/2019 11:21 AM PDT) + + | Specimen | + + | | + + + + + | Narrative | Performed At | + + + | XR CHEST PA AND LATERAL 05/13/2019 11:21 AM HISTORY: Shortness of | [facility] | | breath. COMPARISON: None. Findings: Heart size is within | | | normal limits. There is atherosclerosis and tortuosity of the aorta. | | | Mediastinum demonstrates no acute findings. Central pulmonary | | | vasculature is normal. Mild scarring is in the left lung base. The | | | right lung is clear. There are no acute osseous abnormalities. | | | IMPRESSION - No acute findings. Dictated and Signed by: Rik | | | MD Sunil Electronically signed: 05/13/2019 2:55 PM | | + + + + + | Procedure Note | + + | Kevin, Rad Results In - 05/13/2019 2:58 PM PDT XR CHEST PA AND LATERAL 05/13/2019 11:21 | | AMHISTORY: Shortness of breath.COMPARISON: None.Findings:Heart size is within normal | | limits. There is atherosclerosis and tortuosity ofthe aorta. Mediastinum demonstrates no | | acute findings. Central pulmonaryvasculature is normal. Mild scarring is in the left | | lung base. The right lung isclear. There are no acute osseous abnormalities.IMPRESSION | | -No acute findings.Dictated and Signed by: Rik Barber MD Electronically signed: | | 05/13/2019 2:55 PM | |Heart size is within normal limits. There is atherosclerosis and tortuosity of | |the aorta. Mediastinum demonstrates no acute findings. Central pulmonary | |vasculature is normal. Mild scarring is in the left lung base. The right lung is | |clear. There are no acute osseous abnormalities. | | | |IMPRESSION - | |No acute findings. | | | |Dictated and Signed by: Rik Barber MD | | Electronically signed: 05/13/2019 2:55 PM | + + + +---------+ + + | Performing | Address | City/State/Zipcode | Phone Number | | Organization | | | | + +---------+ + + | [facility] | | | | + +---------+ + + documented in this encounter Visit Diagnoses + + | Diagnosis | + + | Cough - Primary | + + | Bronchitis Bronchitis, not specified as acute or chronic | + + documented in this encounter Administered Medications + +--------+ +-------+------+------+ | Medication Order | MAR | Action | Dose | Rate | Site | | | Action | Date | | | | + +--------+ +-------+------+------+ | albuterol-ipratropium 2.5-0.5 | Given | 05/13/20 | 3 mLs | | | | mg/3 mL nebulizer solution 3 mL | | 19 10:23 | | | | | 3 mL, Nebulization, RT Once, Erin | | AM PDT | | | | | 05/13/19 at 1020, For 1 dose | | | | | | + +--------+ +-------+------+------+ +---+---+ | | | +---+---+ + +-------+ +------+---+---+ | dexamethasone (DECADRON) 10 | Given | 05/13/20 | 8 mg | | | | mg/mL injection for oral use 8 mg | | 19 11:37 | | | | | 8 mg, Oral, ONCE, [facility] 05/13/19 | | AM PDT | | | | | at 1135, For 1 dose, Use | | | | | | | dexamethasone 10 mg/mL vial for | | | | | | | inject for this oral dose, | | | | | | + +-------+ +------+---+---+ +---+---+ | | | +---+---+ documented in this encounter"
--- OUTSIDE RECORDS SUMMARY | ~2020-05-30 | XMS | Encounter Summary ---
Demographics + + + | Address | [address] | | | [place] [address] | + + + | Home Phone | | + + + | Preferred Language | Unknown | + + + | Marital Status | Single | + + + | Roman Catholic Affiliation | Unknown | + + + | Race | White | + + + | Ethnic Group | Not or | + + + Author + + + | Author | [facility] | + + + | Organization | [facility] | + + + | Address | Unknown | + + + | Phone | Unavailable | + + + Support + + +---------+ + | Name | Relationship | Address | Phone | + + +---------+ + | Mindi Miller | ECON | Unknown | | + + +---------+ + Care Team Providers + +------+ + | Care Charter Bus Driver Name | Role | Phone | + +------+ + | No Pcp Per Patient | PCP | Unavailable | + +------+ + Encounter Details +--------+ + + + + | Date | Type | Department | Care Team | Description | +--------+ + + + + | 05/22/ | Research | Clinical & | | | | 2015 | Encounter | Translational | | | | | | Research Ctr at [facility] | | | | | | [address] | | | | | | [place] | | | | | | [facility], | | | | | | [address] [place] [address] | | | | | | [place], [place] | | | | | | [address] | | | | | | [phone] | | | +--------+ + + + [...] + + documented as of this encounter Progress Amara Riddle - 05/22/2016 11:03 AM Debora Dowling was here today for research study [id number]. documented in this enco unter Plan of Treatment Not on filedocumented as of this encounter Procedures + +--------+ + + + | Procedure Name | Priori | Date/Time | Associated Diagnosis | Comments | | | ty | | | | + +--------+ + + + | CBC (HEMOGRAM) ONLY | Routin | 05/22/2016 | Research exam | Results for this | | | e | 10:41 AM | | procedure are in the | | | | PDT | | results section. | + +--------+ + + + | INR | Routin | 05/22/2016 | Research exam | Results for this | | | e | 10:41 AM | | procedure are in the | | | | PDT | | results section. | + +--------+ + + + | COMPLETE METABOLIC | Routin | 05/22/2016 | Research exam | Results for this | | SET | e | 10:41 AM | | procedure are in the | | (NA,K,CL,CO2,BUN,CRE | | PDT | | results section. | | AT,GLUC,CA,AST,ALT,B | | | | | | KYRIE TOTAL,ALK | | | | | | PHOS,ALB,PROT TOTAL) | | | | | + +--------+ + + + | CBC ONLY | Routin | 05/22/2016 | Research exam | Results for this | | | e | 10:41 AM | | procedure are in the | | | | PDT | | results section. | + +--------+ + + + | TSH | Routin | 05/22/2016 | Research exam | Results for this | | | e | 10:41 AM | | procedure are in the | | | | PDT | | results section. | + +--------+ + + + | VITAMIN B-12 | Routin | 05/22/2016 | Research exam | Results for this | | | e | 10:41 AM | | procedure are in the | | | | PDT | | results section. | + +--------+ + + + documented in this encounter Results CBC (HEMOGRAM) ONLY (05/22/2016 10:41 AM PDT) + +-------+ + + + | Component | Value | Ref Range | Performed | Pathologist | | | | | At | Signature | + +-------+ + + + | WHITE CELL | 6.90 | 4.40 - 11.00 | [facility] | | | COUNT | | K/cu mm | LABORATORY | | | | | | SERVICES, | | | | | | CORE | | + +-------+ + + + | RED CELL | 4.40 | 4.00 - 5.20 | [facility] | | | COUNT | | M/cu mm | LABORATORY | | | | | | SERVICES, | | | | | | CORE | | + +-------+ + + + | HEMOGLOBIN | 13.1 | 12.0 - 16.0 | [facility] | | | | | g/dL | LABORATORY | | | | | | SERVICES, | | | | | | CORE | | + +-------+ + + + | HEMATOCRIT | 36.9 | 36.0 - 46.0 % | [facility] | | | | | | LABORATORY | | | | | | SERVICES, | | | | | | CORE | | + +-------+ + + + | MCV | 83.9 | 80.0 - 96.0 fL | [facility] | | | | | | LABORATORY | | | | | | SERVICES, | | | | | | CORE | | + +-------+ + + + | MCHC | 35.5 | 33.0 - 35.5 | [facility] | | | | | g/dL | LABORATORY | | | | | | SERVICES, | | | | | | CORE | | + +-------+ + + + | RDW SD | 38.5 | 35.1 - 46.3 fL | [facility] | | | | | | LABORATORY | | | | | | SERVICES, | | | | | | CORE | | + +-------+ + + + | PLATELET | 259 | 150 - 400 K/cu | [facility] | | | COUNT | | mm | LABORATORY | | | | | | SERVICES, | | | | | | CORE | | + +-------+ + + + | MPV | 11.0 | 9.7 - 12.3 fL | [facility] | | | | | | LABORATORY | | | | | | SERVICES, | | | | | | CORE | | + +-------+ + + + | NRBC% | 0.0 | 0.0 - 0.3 % | [facility] | | | | | | LABORATORY | | | | | | SERVICES, | | | | | | CORE | | + +-------+ + + + | NRBC# | 0.00 | 0.00 - 0.02 | [facility] | | | | | K/cu mm | LABORATORY | | | | | [...] + | [facility] | [address] | [place] [address] | | | SERVICES, CORE | [address] | | | + + + + + VITAMIN B-12 (05/22/2016 10:41 AM PDT) + [...] method and performing lab effective 05/14/16. | [facility] | | | LABORATORY | | | SERVICES, CORE | + + + + + + + + | Performing | Address | City/State/Zipcode | Phone Number | | Organization | | | | + + + + + | [facility] | [address] | [place] [address] | | | SERVICES, CORE | [address] [...] mech. valves (2.5 - 3.5) INR | SERVICES, CORE | + + + + + + + + | Performing | Address | City/State/Zipcode | Phone Number | | Organization | | | | + + + + + | [facility] | [address] | [place] [address] | | | SERVICES, CORE | [address] [...] | + + + + + | [facility] [employer] | [address] | [place] [address] | | | SERVICES, CORE | [address] [...] | | | LABORATORY | | | [place] | | | SERVICES, | | | [...] the MDRD equation recommended by the | [facility] | | National Kidney Disease Education Program. [...] | + + + + + | [facility] | [address] | [place] [address] | | | SERVICES, CORE | [address] | | | + + + + + documented in this encounter Visit Diagnoses + + | Diagnosis | + + | Research exam Examination of participant in clinical trial | + + documented in this encounter"
--- OUTSIDE RECORDS SUMMARY | ~2020-05-30 | XMS | Encounter Summary ---
Demographics + + + | Address | [address] | | | [place] [address] | + + + | Home Phone | | + + + | Preferred Language | Unknown | + + + | Marital Status | Single | + + + | Restoration Affiliation | Unknown | + + + | Race | White | + + + | Ethnic Group | Not or | + + + Author + + + | Author | [facility] | + + + | Organization | [facility] | + + + | Address | Unknown | + + + | Phone | Unavailable | + + + Support + + +---------+ + | Name | Relationship | Address | Phone | + + +---------+ + | Mindi Miller | ECON | Unknown | | + + +---------+ + Care Team Providers + +------+ + | Care Casual Shoe Inspector Name | Role | Phone | + +------+ + | No Pcp Per Patient | PCP | Unavailable | + +------+ + Encounter Details +--------+ + + + + | Date | Type | Department | Care Team | Description | +--------+ + + + + | 10/22/ | Hospital | Dermatopathology | | | | 2016 | Encounter | [address] | | | | | | Mailcode: CH16D | | | | | | [place] [facility] | | | | | | and Healing, | | | | | | [facility] [address], [facility] | | | | | | [place], [place] | | | | | | [address] | | | | | | [phone] | | | +--------+ + + + [...] + | DERM PATHOLOGY | Routin | 10/22/2016 | Squamous cell | Results for this | | | e | | carcinoma of skin of | procedure are in the | | | | | face Other | results section. | | | | | seborrheic keratosis | | | | | | Basal cell | | | | | | carcinoma of skin of | | | | | | other part of trunk | | + +--------+ + + + documented in this encounter Results DERM PATHOLOGY (10/22/2016) + + + + + + | Component | Value | Ref Range | Performed | Pathologist | | | | | At | Signature | + + + + + + | DERMATOPATH | SOURCE OF SPECIMEN:A Rt. | | [facility] | | | OLOGY(WET | zoroastrian, shave | | DERMATOPATH | | | MNT) | biopsySOURCE OF | | OLOGY | | | | SPECIMEN:B Lt. arm, | | | | | | shave biopsySOURCE OF | | | | | | SPECIMEN:C Upper mid | | | | | | back, shave biopsy | | | | | | CLINICAL DESCRIPTION:A: | | | | | | 2 x 3 mm pink papule; | | | | | | r/o NMSC.B: 6 x 4 mm | | | | | | pink papule; r/o NMSC vs | | | | | | ISK.C: 3 x 4 mm pearly | | | | | | papule; r/o BCC. | | | | | | GROSS | | | | | | DESCRIPTION:Received in | | | | | | formalin are three | | | | | | specimens labeled | | | | | | Bre Dowling:A: Specimen | | | | | | is labeled "A | | | | | | | | | | | | R zoroastrian" and consists | | | | | | of an irregular shave | | | | | | ofpapular white-baker | | | | | | skin, [id number]. The | | | | | | surgical margin is inked | | | | | | black; thetissue is | | | | | | entirely submitted in | | | | | | cassette A1.B: Specimen | | | | | | is labeled "B | | | | | | | | | | | | L arm" and consists of | | | | | | an irregular shave | | | | | | ofpapular | | | | | | iqqzl-sai-xtgmi skin, | | | | | | [id number]. The surgical | | | | | | margin is inked | | | | | | black;the tissue is | | | | | | bisected, and entirely | | | | | | submitted in cassette | | | | | | B1.C: Specimen is | | | | | | labeled "C | | | | | | | | | | | | Upper mid back" and | | | | | | consists of an | | | | | | irregularshave of | | | | | | papular vevnd-shq-rgmna | | | | | | skin, [id number]. The | | | | | | surgical margin isinked | | | | | | black; the tissue is | | | | | | bisected, and entirely | | | | | | submitted in cassette | | | | | | C1. MICROSCOPIC | | | | | | DESCRIPTION:In the right | | | | | | zoroastrian biopsy, | | | | | | emanating from the | | | | | | undersurface of | | | | | | theepidermis are buds of | | | | | | cells with large, | | | | | | hyperchromatic, | | | | | | pleomorphic nucleiand | | | | | | scant eosinophilic | | | | | | cytoplasm, which spare | | | | | | the adnexal epithelium. | | | | | | Someextend in nodular | | | | | | aggregates into the | | | | | | upper dermis. In | | | | | | the left arm biopsy, | | | | | | there is epidermal | | | | | | hyperplasia with | | | | | | hornpseudocysts, | | | | | | interweaving of the | | | | | | rete, and nuclei of | | | | | | uniform size andshape. | | | | | | In the upper mid | | | | | | back biopsy, there are | | | | | | nodular aggregates of | | | | | | cells withinthe dermis, | | | | | | with many of the cells | | | | | | containing | | | | | | hyperchromatic nuclei, | | | | | | scantcytoplasm, and | | | | | | palisading of the | | | | | | peripheral nuclei. 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 NOTE: | | | | | | The squamous cell | | | | | | carcinoma extends | | | | | | closely to the specimen | | | | | | base. B: | | | | | | SEBORRHEIC KERATOSIS. 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 | | | | | | NOTE: The basal cell | | | | | | carcinoma extends to the | | | | | | peripheral and deep | | | | | | margins. | | | | | | KPW:mm10/29/16 My | | | | | | [...] Higgins | | | | | | TinyPathologistElectroni | | | | | | saman Signed 10/29/2016 | | | | | | 5:24PM | | | | + + + [...] + + + + | [facility] | Mailcode CH5D [address] | [place] [address] | | | DERMATOPATHOLOGY | [address] | | | + + + + + documented in this encounter Visit Diagnoses + + | Diagnosis | + + | Squamous cell carcinoma of skin of face Squamous cell carcinoma of skin of other and | | unspecified parts of face | + + | Other seborrheic keratosis | + + | Basal cell carcinoma of skin of other part of trunk | + + documented in this encounter
--- OUTSIDE RECORDS SUMMARY | ~2020-05-30 | XMS | Encounter Summary ---
Demographics + + + | Address | [address] | | | [place] [address] | + + + | Home Phone | | + + + | Preferred Language | Unknown | + + + | Marital Status | Unknown | + + + | Shinto Affiliation | Unknown | + + + | Race | Unknown | + + + | Ethnic Group | Unknown | + + + Author + + + | Author | [facility] | | | and [place] | + + + | Organization | [facility] | | | and [...] Team Providers + +------+ + | Care Optical Goods Drill Operator Name | Role | Phone | + +------+ + PCP | Unavailable | + +------+ + Encounter Details +--------+---------+ + + + | Date | Type | Department | Care Team | Description | +--------+---------+ + + + | 02/25/ | Surgery | [facility] | Abilio Campos MD | Colonoscopy, Flex | | 2018 | | MED CTR [facility] OP | [address] | Sig, Hemorrhoid | | | | [address] | [place], [place] | Banding | | | | [place], [place] | [address] | | | | | [address] | [phone] | | | | | [phone] | | | +--------+---------+ + + + [...] by: Abilio Campos MD, 02/25/2018 11:48 [facility] Abilio Campos MD at 02/25 [...] Electronically signed Abilio Campos MD 02/25/2018 14:09 [facility] 2:2 1 PM PDTdocumented in this [...]
--- OUTSIDE RECORDS SUMMARY | ~2020-05-30 | XMS | Encounter Summary ---
Demographics + + + | Address | [address] | | | [place] [address] | + + + | Home Phone | | + + + | Preferred Language | Unknown | + + + | Marital Status | Single | + + + | Yazidi Affiliation | Unknown | + + + | Race | White | + + + | Ethnic Group | Not or | + + + Author + + + | Author | [facility] | + + + | Organization | [facility] | + + + | Address | Unknown | + + + | Phone | Unavailable | + + + Support + + +---------+ + | Name | Relationship | Address | Phone | + + +---------+ + | Mindi Miller | ECON | Unknown | | + + +---------+ + Care Team Providers + +------+ + | Care Shop Hand Name | Role | Phone | [...] CH16D | | | | | | [place] for [facility] | | | | | | and Healing, | | | | | | [facility] 1, [facility] | | | | | | [place], [place] | | | | | | [address] | | | | | | [phone] | | | +--------+ + + + [...] | [facility] | | | OLOGY(WET | jew, shave | | DERMATOPATH | | | [...] | | | | | | R jew" and consists | | | | | | of an irregular shave | | | | | | ofpapular white-baker | | | | | | skin, [id number]. The | | | | | | [...] ofpapular | | | | | | ztdtv-noa-jdkfd skin, | | | | | | [id number]. The surgical | | | | | [...] | | | | | | papular zxnwn-lup-wbzug | | | | | | skin, [id number]. The | | | | | | surgical margin isinked | | | | | | black; the tissue is | | | | | | bisected, and entirely | | | | | | submitted in cassette | | | | | | C1. MICROSCOPIC | | | | | | DESCRIPTION:In the right | | | | | | jew biopsy, | | | | | | [...] [facility] | Mailcode CH5D [address] | [place] [address] | | | DERMATOPATHOLOGY | [address] [...]
--- OUTSIDE RECORDS SUMMARY | ~2020-05-30 | XMS | Encounter Summary ---
Demographics + + + | Address | [address] | | | [place] [address] | + + + | Home Phone | | + + + | Preferred Language | Unknown | + + + | Marital Status | Unknown | + + + | Restoration Affiliation | Unknown | + + + | Race | Unknown | + + + | Ethnic Group | Unknown | + + + Author + + + | Author | [facility] | | | and [place] | + + + | Organization | [facility] | | [...] Team Providers + +------+ + | Care Ocular Pathologist Name | Role | Phone | + [...] [address] | [place] | | | | | [place] | [id number] | | | | | [address] | | | | | | [phone] | | | +--------+ + + + [...]
--- OUTSIDE RECORDS SUMMARY | ~2020-05-30 | XMS | Clinical Summary ---
Demographics + + + | Address | [address] | | | [place] [address] | + + + | Home Phone | | + + + | Preferred Language | Unknown | + + + | Marital Status | Unknown | + + + | Temple Affiliation | Unknown | + + + | Race | Unknown | + + + | Ethnic Group | Unknown | + + + Author + + + | Author | [facility] | | | and [place] | + + + | Organization | [facility] | | [...] Team Providers + +------+ + | Care Director Of Patient Safety Name | Role | Phone | + +------+ + | Graeme Millan MD | PCP | | + +------+ + Allergies No Known Allergies Medications + + + +---------+------+------+-------+ | Medication | Sig | Dispensed | Refills | Star | End | Statu | | | | | | t | Date | s | | | | | | Date | | | + + + +---------+------+------+-------+ | Multiple | Take by mouth. | | 0 | | | Activ | | Vitamins-Minerals | | | | | | e | | (OCUVITE ADULT 50+ | | | | | | | | PO) | | | | | | | + + + +---------+------+------+-------+ | losartan (COZAAR) | Take 100 mg by mouth | | 0 | | | Activ | | 100 MG tablet | Daily. | | | | | e | + + + +---------+------+------+-------+ | cyanocobalamin | Take 50 mcg by mouth | | 0 | | | Activ | | (VITAMIN B-12) 100 | Daily. | | | | | e | | MCG tablet | | | | | | | + + + +---------+------+------+-------+ | cholecalciferol | Take 1,000 Units by | | 0 | | | Activ | | (VITAMIN D-3) 1,000 | mouth Daily. | | | | | e | | units capsule | | | | | | | + + + +---------+------+------+-------+ | albuterol 90 | Inhale 2 puffs into | 1 | 0 | 06/1 | | Activ | | mcg/puff inhaler | the lungs every 4 | Inhaler | | 3/20 | | e | | | hours as needed for | | | 19 | | | | | Wheezing or | | | | | | | | Shortness of Breath. | | | | | | | | Use with spacer | | | | | | | | device. | | | | | | + + + +---------+------+------+-------+ | | | | 0 | 06/1 | | Activ | | Spacer/Aero-Holding | | | | 3/20 | | e | | Chambers | | | | 19 | | | | (AEROCHAMBER PLUS | | | | | | | | EMIR-VU) MISC | | | | | | | + + + +---------+------+------+-------+ | oxybutynin | take 3 tablets by | | 0 | 04/0 | | Activ | | (DITROPAN XL) 5 mg | mouth at bedtime | | | 5/20 | | e | | 24 hr tablet | | | | 20 | | | + + + +---------+------+------+-------+ | levothyroxine | take 1 tablet by | | 0 | 03/0 | | Activ | | (SYNTHROID) 100 mcg | mouth once daily | | | 3/20 | | e | | tablet | | | | 20 | | | + + + +---------+------+------+-------+ | FLOVENT HFA 220 | Take 2 puffs by | 1 | 0 | 04/1 | | Activ | | MCG/ACT inhaler | mouth 2 times daily. | Inhaler | | 4/20 | | e | | | | | | 20 | | | + + + +---------+------+------+-------+ | azithromycin | Take 2 tablets by | 6 | 0 | 04/1 | | Activ | | (ZITHROMAX) 250 mg | mouth daily x 1 day, | tablet | | 4/20 | | e | | tablet | then take 1 tablet | | | 20 | | | | | by mouth daily x 4 | | | | | | | | days. 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 | | +--------+ + + + + | 03/14/ | Emergency | Emergency Medicine | Arnaldo Roque | Viral pneumonitis | | 2019 | | | Nelson Haque MD | (Primary Dx) | +--------+ + + + + | 03/14/ | Imaging | Radiology | Renata, | | | 2019 | Exam | | MAGNOLIA Gore | | +--------+ + + + + | 03/14/ | Office | Immediate Care | Renata, | SOB (shortness of | | 2019 | Visit | | MAGNOLIA Gore | breath) (Primary | | | | | | Dx); Positive D | | | | | | dimer | +--------+ + + + + from Last 3 Months Social History + +-------+ +--------+------+ | Tobacco [...] on file | | + + + Last Filed Vital Signs + + + [...] | | + + + + + Plan of Treatment + + + + + | Health Maintenance | Due Date | Last | Comments | | | | Done | | + + + + + | Vaccine: | | | | | Pneumococcal 65+ (1 | 7 | | | | of 1 - PPSV23) | | | | + + + + + | Adult Annual | | | | | Wellness Visit | 9 | | | + + + + + | Vaccine: | | 01/24/20 | | | Dtap/Tdap/Td (2 - | 8 | 18, | | | Td) | | 09/23/20 | | | | | 08 | | + + + + + | Vaccine: Influenza | Completed | 08/19/20 | | | | | 19, | | | | | 08/13/20 | | | | | 18, | | | | | 08/14/20 | | | | | 17, | | | | | Addition | | | | | al | | | | | history | | | | | exists | | + + + + + | Vaccine: Zoster | Completed | 02/07/20 | | | | | , | | | | | 08/19/20 | | | | | 19 | | + + + + + Procedures + +--------+ + + + | [...] | | n - | | | 03/14/ | | | 2019 | | | 2:45 | | | [...] | | | ON?04/ | | | | | | 0 | | | 14:43? | | | JOHNSON | | | , COREY | | | | | | J?MRN: | | | | | | [id number] | | | [id number] | | | riteri | | | [...] | | | [id number] | | | [id number] | | | | | | PLEASE [...] [email or web address] | | | m | +---+--------+ + +--------+ + + + | ECG [...] section. | + +--------+ + + + from Last 3 Months Results Coronavirus (COVID-19) NAAT (05/24/2020 4:11 PM PDT)Only the most recent of 2 results with in the time period is included. + + + + + + | [...] + + | Performed at: [address] | REFERENCE LAB | | [phone] Scrap Cutter: Altagracia Marr MD, Phone: [phone] | [facility] | + + + + + + + + | Performing | Address | City/State/Zipcode | Phone Number | | Organization | | | | + + + + + | REFERENCE LAB | [address] | [place], [place] | [phone] | | [facility] | [facility] | [address] | | + + + + + CT Angiogram Pulmonary w Contrast (03/14/2020 3:35 [...] | | | + +---------+ + + ECG 12 lead (03/14/2020 1:07 PM PDT) [...] | | | ANNA MARIE HENRY MD ([id number]) | | | | | | on [...] | | | | | | [employer] | | | | | [...] + + + | [facility] | [address] | [place] | [phone] | | [facility] | | [address] | | | [facility] | | | | + + + + + D-Dimer (03/14/2020 12:42 PM PDT) + + + + + + | Component | Value | Ref Range | Performed | Pathologist | | | | | At | Signature | + + + + + + | D-Dimer | 0.69 (H)Comment: This | <=0.50 ug/mL | [facility] | | | Quantitativ | quantitative D-Dimer | FEU | [facility] | | | e | assay has [...] + | [facility] | [address] | [place] | [phone] | | [facility] | | [address] | | | - LABORATORY | | [...] + + + | [facility] | [address] | [place] | [phone] | | [facility] | | [address] | | | [facility] | | [...] not | 47 (L)Comment: | >=60 | [facility] | | | | GLOMERULAR FILTRATION | mL/min/1.73m2 | [facility] | | | MAC[place]ONIAN | RATE,ESTIMATED | | MEDICAL | | | | mL/min/1.98y7Ngjo than | | [facility] | | | [...] + + + | [facility] | [address] | [place] | [phone] | | [facility] | | [address] | | | [facility] | | | | + + + + + from Last 3 Months Insurance + +--------+ +--------+ +---------+--------+ | Payer | Benefi | Subscriber | Effect | Phone | Address | Type | | | t Plan | ID | tiarra | | | | | | / | | Dates | | | | | | Group | | | | | | + +--------+ +--------+ +---------+--------+ | MEDICARE | MEDICA | [id number] | 03/01/19 | [phone] | | Medica | | | RE | | 97-Pre | 5 | | re | | | PART A | | sent | | | | | | AND B | | | | | | + +--------+ +--------+ +---------+--------+ | [facility] | [facility] | [id number] | 12/01/19 | [phone] | | PPO | | | E | 41 | 19-Pre | 8 | | | | | UNIFOR | | sent | | | | | | M MED | | | | | | | | PLAN | | | | | | + +--------+ +--------+ +---------+--------+ + +--------+ +--------+ + + | Guarantor Name | Accoun | Relation to | Date | Phone | Billing Address | | | t Type | Patient | of | | | | | | | | | | + +--------+ +--------+ + + | Corey Johnson | Person | Self [birth year] | [address] | | | al/Fam | | 1930 | [phone] | [address] [place] | | | nir | | | 8 (Home) | [address] | + +--------+ +--------+ + + Advance Directives + + + + + | Type | Date Recorded | Patient | Explanation | | | | Mumps Developer | | + + + + + | Power of | | | | | [employer] | | | | + + + + + | Advance | 05/13/2019 10:50 | | | | Directive | AM | | | + + + + +
--- OUTSIDE RECORDS SUMMARY | ~2020-05-30 | XMS | Encounter Summary ---
Demographics + + + | Address | [address] | | | [place] [address] | + + + | Home Phone [...] Author + + + | Author | [facility] | + + + | Organization | [facility] | + + + | Address | Unknown | + + + | Phone | Unavailable | + + + Support + + +---------+ + | Name | Relationship | Address | Phone | + + +---------+ + | Mindi Miller | ECON | Unknown | | + + +---------+ + Care Team Providers + +------+ + | Care Founder And Ceo Name | Role | Phone | + +------+ + | No Pcp Per Patient | PCP | Unavailable | + +------+ + Encounter Details +--------+ + + + + | Date | Type | Department | Care Team | Description | +--------+ + + + + | 05/22/ | Lab | LAB CORE [address] | Sridevi Szymanski, | | | 2015 | Requisition | [address] | [place] [address] | | | | | [place], [place] | [address] | | | | | [address] | [place], [place] | | | | | [phone] | [address] | | | | | | [phone] | | | | | | | [...] ELLIOT NAIK | [address] | [place] [address] | | | SERVICES, CORE | JILL [...]
--- OUTSIDE RECORDS SUMMARY | ~2020-05-30 | XMS | Encounter Summary ---
Demographics + + + | Address | [address] | | | [place] [address] | + + + | Home Phone | | + + + | Preferred Language | Unknown | + + + | Marital Status | Unknown | + + + | Roman Catholic Affiliation | Unknown | + + + | Race | Unknown | + + + | Ethnic Group | Unknown | + + + Author + + + | Author | [facility] | | | and [place] | + + + | Organization | [facility] | | | [...] Team Providers + +------+ + | Care Fruit Picker Name | Role | Phone | + [...] + | 03/14/ | Office | [facility] | Renata, | SOB (shortness of | | 2020 | Visit | CARE [address] | [place] | breath) (Primary | | | | [place] | [address] | Dx); Positive D | | | | [address] | [place] | dimer | | | | [phone] | [address] | | | | | | | [...] 21 gauge butterfly needle. Patient tolerated well. [facility], Shasta Bowen, SALES DRIVER - 03/14/2020 11:45 AM PDTFormatting of this [...] tends to be constipated. Patient lives in [place] , lives with her sig other. No [...] Banding; Surgeon: Abilio Campos MD; Locati on: [facility] EGD AND COLONOSCOPY [...] at bedtime Spacer/Aero-Holding Chambers (AEROCHAMBER PLUS EMIR-VU) [facility] No current facility-administered medications for this visit. [...] short of breath for the last w [place]. Has known dx of asthma but is [...] different from t he original. [facility] COVID-19 [facility] Intake Form Affix Patient Label [] Photo ID Verified Patient Name:Bre Dowling Provider:[facility] :1930 Date:03/14/20 MyChart: Pending Activation [...] Care Instructions [] Work Letter Catie Zepeda Vice President Talent Management - 03/14/2020 11:45 AM [facility] Intake Form Affix Patient Label [] Photo ID Verified Patient Name:Bre Dowling Provider:[facility] :1930 Date:03/14/20 [] If <15 or >70 years of age, MUST be seen in clinic [] Intention to see provider [] Intention for screening at drive through [employer] Website: Pending Activation Vitals: There were no vitals [...] | | | ANNA MARIE HENRY MD ([id number]) | | | | | | on [...] | | | | | | [employer] | | | | | [...] + + + | [facility] | [address] | [place] | [phone] | | [facility] | | [address] | | | [facility] | | | | + + + + + D-Dimer (03/14/2020 12:42 PM PDT) + + + + + + | Component | Value | Ref Range | Performed | Pathologist | | | | | At | Signature | + + + + + + | D-Dimer | 0.69 (H)Comment: This | <=0.50 ug/mL | [facility] | | | Quantitativ | quantitative [...] + | [address] | [address] | [place] | [phone] | | [facility] | | [address] | | | - LABORATORY | | [...] | mL/min/1.73m2 | [facility] | | | [place] | RATE,ESTIMATED | | MEDICAL | | | | mL/min/1.61i7Acph than | | PARK | | | [...] + + + | [facility] | [address] | [place] | [phone] | | [facility] | | [address] | | | [facility] | | [...] + + + | [facility] | [address] | [place] | [phone] | | [facility] | | [address] | | | [facility] | | [...] at: 01 - LabFelicit[facility] Elena [address], [place] | REFERENCE LAB | | [phone] Gear Finisher: Jim Wallace MD, Phone: [phone] | [facility] | + + + + + + + + | Performing | Address | City/State/Zipcode | Phone Number | | Organization | | | | + + + + + | REFERENCE LAB | [address] | [place], [place] | [phone] | | [facility] | [place] | [address] | | + + + + + [...]
--- OUTSIDE RECORDS SUMMARY | ~2020-05-30 | XMS | Encounter Summary ---
Demographics + + + | Address | [address] | | | [place] [address] | + + + | Home Phone | | + + + | Preferred Language | Unknown | + + + | Marital Status | Unknown | + + + | Samaritan Affiliation | Unknown | + + + | Race | Unknown | + + + | Ethnic Group | Unknown | + + + Author + + + | Author | [facility] | | | and [place] | + + + | Organization | [facility] | | | [...] Team Providers + +------+ + | Care Break And Load Operator Name | Role | Phone | [...] | | | | CENTER [address] | [address] | | | | | [place], [place] | [place], [place] | | | | | [address] | [address] | | | | | [phone] | | | +--------+ + + + [...] your hands with an alcohol-ba sed hand real estate job titles that contains at least 60% alcohol. Clean your hands often Wash your hands often with soap and water for at least 20 seconds, especially after blowing your nose, coughing, or sneezing; going to the bathroom; and before eating or preparing kahlil d. If soap and water are not readily available, use an alcohol-based hand real estate job titles with at least 60% alcohol, covering all [...] soap and water or an alcohol-based hand real estate job titles) immediately after removing your gloves. Read and [...] provider. For more information visit: www.CDC.gov www.who.int www.[place].gov Reference: https://www.cdc.gov/coronavirus/2019-nCoV/hcp/index.html https://www.who.int/emergencies/diseases/hvubt-phlhanbmhtw-1048/gmlzce-bzg-kdfojc documented in this encounter Medications at Time [...] might be d ifferent from the original. [facility] Corey Johnson EMERGENCY DEPARTMENT ENCOUNTER NOTE [address] [place] [address] PCP:Graeme Millan MD [phone] EMERGENCY DEPARTMENT ENCOUNTER [...] not drink alcohol or use drugs. 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 Equal assistant product manager in all extremities Psychiatric: Affect normal, Judgment [...] your hands with an alcohol- based hand real estate job titles that contains at least 60% alcohol. Clean your hands often ? Wash your hands often with soap and water for at least 20 seconds, especially after blowi ng your nose, coughing, or sneezing; going to the bathroom; and before eating or preparing f ood. If soap and water are not readily available, use an alcohol-based hand real estate job titles with a t least 60% alcohol, covering [...] soap and water or an alcohol-based hand real estate job titles) immediatel y after removing your gloves. ? [...] information visit: www.CDC.gov www.who.int www.[place].gov Reference: https://www.cdc.gov/coronavirus/2019-nCoV/hcp/index.html https://www.who.int/emergencies/diseases/zyezi-cyvdmfsnfic-7683/xpqghj-zwx-eygguh FINAL IMPRESSION 1. Viral pneumonitis Acute Portions of this chart may have been created with [employer] voice recognition software. Occasi onal wrong-word or [...] J?MRN: | | | | | | [id number] | | | [id number] | | | riteri | | | [...] | | | [id number] | | | [id number] | | | | | | PLEASE [...]
--- OUTSIDE RECORDS SUMMARY | ~2020-05-30 | XMS | Encounter Summary ---
Demographics + + + | Address | [address] | | | [place] [address] | + + + | Home Phone | | + + + | Preferred Language | Unknown | + + + | Marital Status | Unknown | + + + | Jew Affiliation | Unknown | + + + | Race | Unknown | + + + | Ethnic Group | Unknown | + + + Author + + + | Author | [facility] | | | and [place] | + + + | Organization | [facility] | | [...] Team Providers + +------+ + | Care Electronic Heat Seal Operator Name | Role | Phone | + +------+ + PCP | Unavailable | + +------+ + Encounter Details +--------+ + + + + | Date | Type | Department | Care Team | Description | +--------+ + + + + | 02/25/ | Hospital | [facility] | Abilio Campos MD | | | 2018 | Encounter | MED CTR MP INTRA OP | [address] | | | | | [address] | [place] | | | | | [place] | [address] | | | | | [address] | [phone] | | | | | [phone] | | | +--------+ + + + [...] by: Abilio Campos MD, 02/25/2018 11:48 [facility] Ab[facility] Campos MD at 02/25 [...] Electronically signed Abilio Campos MD 02/25/2018 14:09 [facility] signed by Abilio Campos MD at 02/25/2018 [...]
--- OUTSIDE RECORDS SUMMARY | ~2020-05-30 | XMS | Clinical Summary ---
Demographics + + + | Address | [address] | | | [place] [address] | + + + | Home Phone | | + + + | Preferred Language | Unknown | + + + | Marital Status | Unknown | + + + | Sabianist Affiliation [...] Team Providers + +------+ + | Care House Painter Name | Role | Phone | + [...] Management | | 2019 | | | CARE PROFESSIONAL | | +--------+ + + + + [...] J?MRN: | | | | | | [id number] | | | [id number] | | | riteri | | | [...] | | | [id number] | | | [id number] | | | | | | PLEASE [...] + + | Performed at: [address] | REFERENCE LAB | | [id number] [place]: Altagracia Marr MD, Phone: [phone] | [facility] | + + + + + + + + | Performing | Address | City/State/Zipcode | Phone Number | | Organization | | | | + + + + + | REFERENCE LAB | [address] | [place], [place] | [phone] | | [facility] | [facility] | [address] | | + + + + + [...] | | | ANNA MARIE HENRY MD ([id number]) | | | | | | on [...] | | | | | | [employer] | | | | | [...] + + + | [facility] | [address] | [place] | [phone] | | [facility] | | [address] | | | [facility] | | [...] [address] | [place] | [phone] | | [facility] | | [address] | | | - LABORATORY | | [...] + + + | [facility] | [address] | [place] | [phone] | | [facility] | | [address] | | | [facility] | | [...] | mL/min/1.73m2 | [facility] | | | [place] | RATE,ESTIMATED | | MEDICAL | | | | mL/min/1.58h5Ckyw than | | PARK | | | [...] + + + | [facility] | [address] | [place] | [phone] | | [facility] | | [address] | | | [facility] | | [...] +--------+ +---------+--------+ | MEDICARE | MEDICA | [id number] | 03/01/19 | [phone] | | Medica | | | RE | | 97-Pre | 5 | | re | | | PART A | | sent | | | | | | AND B | | | | | | + +--------+ +--------+ +---------+--------+ | [facility] | REGENC | [id number] | 12/01/19 | [phone] | | PPO [...] | | al/Fam | | 1930 | [phone] | [address] [place] | | | nir | | | 8 (Home) | [address] | + +--------+ +--------+ + + Advance Directives + + + + + | Type | Date Recorded | Patient | Explanation | | | | Geophysical Manager | | + + + + + | Power of | | | | | Bottle Sorter | | | | + + + + + | Advance | 05/13/2019 10:50 | | | | Directive | AM | | | + + + + +
--- OUTSIDE RECORDS SUMMARY | ~2020-05-30 | XMS | Encounter Summary ---
Demographics + + + | Address | [address] | | | [place] [address] | + + + | Home Phone | | + + + | Preferred Language | Unknown | + + + | Marital Status | Single | + + + | Voodoo Affiliation | Unknown | + + + | Race | White | + + + | Ethnic Group | Not or | + + + Author + + + | Author | [facility] | + + + | Organization | [facility] | + + + | Address | Unknown | + + + | Phone | Unavailable | + + + Support + + +---------+ + | Name | Relationship | Address | Phone | + + +---------+ + | Mindi Miller | ECON | Unknown | | + + +---------+ + Care Team Providers + +------+ + | Care Lip Of Shank Cutter Name | Role | Phone | + +------+ + | No Pcp Per Patient | PCP | Unavailable | + +------+ + Encounter Details +--------+ + + + + | Date | Type | Department | Care Team | Description | +--------+ + + + + | 10/02/ | Hospital | Dermatopathology | | | | 2016 | Encounter | [address] | | | | | | Mailcode: CH16D | | | | | | [place] [facility] | | | | | | and Healing, | | | | | | [facility] [address], [facility] | | | | | | [place], [place] | | | | | | [address] | | | | | | [phone] | | | +--------+ + + + [...] + | DERM PATHOLOGY | Routin | 10/02/2016 | Scar conditions | Results for this | | | e | | and fibrosis of skin | procedure are in the | | | | | Actinic keratosis | results section. | + +--------+ + + + documented in this encounter Results DERM PATHOLOGY (10/02/2016) + + + + + + | Component | Value | Ref Range | Performed | Pathologist | | | | | At | Signature | + + + + + + | DERMATOPATH | SOURCE OF SPECIMEN:A Rt. | | [facility] | | | OLOGY(WET | lateral arm, excision | | DERMATOPATH | | | MNT) | CLINICAL | | OLOGY | | | | DESCRIPTION:r/o residual | | | | | | SCC; [id number]. | | | | | | GROSS | | | | | | DESCRIPTION:Received in | | | | | | formalin is a specimen | | | | | | labeled Bre Dowling:A: | | | | | | Specimen is labeled "Rt | | | | | | lateral arm" and | | | | | | consists of an | | | | | | ellipticalexcision of | | | | | | austin-brown skin, | | | | | | [id number]. The surgical | | | | | | margin is inked | | | | | | black;the tissue is | | | | | | serially sectioned, and | | | | | | entirely submitted in | | | | | | cassettes A1 | | | | | | | | | | | | A3. MICROSCOPIC | | | | | | DESCRIPTION:There are an | | | | | | increased number of | | | | | | collagen bundles with | | | | | | fibrocytes | | | | | | arrangedparallel to the | | | | | | skin surface with | | | | | | vertically oriented | | | | | | blood vessels. In | | | | | | thelower portion of the | | | | | | epidermis there are | | | | | | keratinocytes with | | | | | | large,hyperchromatic, | | | | | | pleomorphic nuclei and | | | | | | scant eosinophilic | | | | | | cytoplasm. | | | | | | DIAGNOSIS:SCAR AND SOLAR | | | | | | KERATOSIS. NOTE: | | | | | | There is no evidence of | | | | | | residual squamous cell | | | | | | carcinoma in | | | | | | thesesections. The | | | | | | solar keratosis is | | | | | | completely excised. 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
--- OUTSIDE RECORDS SUMMARY | ~2020-05-30 | XMS | Encounter Summary ---
Demographics + + + | Address | [address] | | | [place] [address] | + + + | Home Phone | | + + + | Preferred Language | Unknown | + + + | Marital Status | Single | + + + | Rastafari Affiliation | Unknown | + + + | Race | White | + + + | Ethnic Group | Not or | + + + Author + + + | Author | [facility] | + + + | Organization | [facility] | + + + | Address | Unknown | + + + | Phone | Unavailable | + + + Support + + +---------+ + | Name | Relationship | Address | Phone | + + +---------+ + | Mindi Miller | ECON | Unknown | | + + +---------+ + Care Team Providers + +------+ + | Care Chauffeur Motorbus Name | Role | Phone | + +------+ + PCP | Unavailable | + +------+ + Encounter Details +--------+ + + + + | Date | Type | Department | Care Team | Description | +--------+ + + + + | 01/18/ | Hospital | Dermatopathology | | | | 2015 | Encounter | [address] | | | | | | Mailcode: CH16D | | | | | | [facility] | | | | | | and Healing, | | | | | | Building [address], [address]th | | | | | | Floor [place], [place] | | | | | | [address] | | | | | | [phone] | | | +--------+ + + + [...] | + +--------+ + + + | DERMATOPATHOLOGY(CON | Routin | 01/18/2016 | | Results for this | | SULT) | e | | | procedure are in the | | | | | | results section. | + +--------+ + + + documented in this encounter Results DERMATOPATHOLOGY(CONSULT) (01/18/2016) + + + + + + | Component | Value | Ref Range | Performed | Pathologist | | | | | At | Signature | + + + + + + | DERMATOPATH | SOURCE OF SPECIMEN:A | | [facility] | | | (CONSULT) | Left upper medial cheek | | DERMATOPATH | | | | biopsy CLINICAL | | OLOGY | | | | DESCRIPTION:R/o | | | | | | SCC.Materials | | | | | | Received:[id number] | | | | | | [id number] x 1 slide | | | | | | Dear Dr. Urrutia: | | | | | | In Bre Dumas's | | | | | | left upper medial cheek | | | | | | biopsy, there are | | | | | | dilated | | | | | | andinteranastomosing, | | | | | | aberrant follicular | | | | | | channels, adjacent to | | | | | | which is aninfiltrate of | | | | | | lymphocytes and | | | | | | histiocytes, some of | | | | | | which aremultinucleated. 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 | | | | | | The changes | | | | | | suggest a partially | | | | | | dilated and ruptured | | | | | | follicle/follicularcyst. | | | | | | There is no evidence of | | | | | | squamous cell carcinoma | | | | | | in these | | | | | | sections.Nevertheless, | | | | | | there is an inability to | | | | | | evaluate deeper | | | | | | portions of | | | | | | theepithelium, and if | | | | | | the lesion persists or | | | | | | recurs, additional | | | | | | biopsy isrecommended. | | | | | | Thank you for | | | | | | referring this | | | | | | consultation. | | | | | | Materials | | | | | | Returned:[id number] | | | | | | [id number] x 1 slide | | | | | | KPW: dl01/25/16 | | | | | | My electronic | | | | | | signature indicates that | | | | | | I have personally | | | | | | reviewed alldiagnostic | | | | | | slides, the gross and/or | | | | | | microscopic portion of | | | | | | thisreport and | | | | | | formulated the final | | | | | | diagnosis. | | | | | | Rendering Diagnostician: | | | | | | Nasir Higgins | | | | | | MCainPathologistElectroni | | | | | | saman Signed 01/25/2016 | | | | | | 4:35PM | | | | + + + [...] [facility] | [address]cojag [address] | [place] [address] | | | DERMATOPATHOLOGY | [address] | | | + + + + + documented in this encounter Visit Diagnoses Not on filedocumented in this encounter"
--- OUTSIDE RECORDS SUMMARY | ~2020-05-30 | XMS | Encounter Summary ---
Demographics + + + | Address | [address] | | | [place] [address] | + + + | Home Phone | | + + + | Preferred Language | Unknown | + + + | Marital Status | Single | + + + | Jewish Affiliation | Unknown | + + + | Race | White | + + + | Ethnic Group | Not or | + + + Author + + + | Author | [facility] | + + + | Organization | [facility] | + + + | Address | Unknown | + + + | Phone | Unavailable | + + + Support + + +---------+ + | Name | Relationship | Address | Phone | + + +---------+ + | Mindi Miller | ECON | Unknown | | + + +---------+ + Care Team Providers + +------+ + | Care Speaking Unit Assembler Name | Role | Phone | + [...]
--- OUTSIDE RECORDS SUMMARY | ~2020-05-30 | XMS | Encounter Summary ---
Demographics + + + | Address | [address] | | | [place] [address] | + + + | Home Phone | | + + + | Preferred Language | Unknown | + + + | Marital Status | Unknown | + + + | Gnosticist Affiliation | Unknown | + + + | Race | Unknown | + + + | Ethnic Group | Unknown | + + + Author + + + | Author | [facility] | | | and [place] | + + + | Organization | [facility] | | | [...] Team Providers + +------+ + | Care Controls Technician Name | Role | Phone | + +------+ + | Natalia Millan MD | PCP | | + +------+ + Reason for Visit + +--------+ + | Reason | Onset | Comments | | | Date | | + +--------+ + | Symptom Management | 03/15/ | | | | 2020 | | + +--------+ + Encounter Details +--------+ + + + + | Date | Type | Department | Care Team | Description | +--------+ + + + + | 03/15/ | Telephone | [facility] | Hali Cota, | Symptom Management | | 2019 | | [facility] | BOOM WORKER [address] | | | | | [address] | [place], [place] | | | | | [place] | [address] | | | | | [address] | [phone] | | | | | [phone] | | | +--------+ + + + [...] this encounter Miscellaneous Notes Telephone Encounter - Maryann Cabral RN - 03/17/2020 9:14 AM PDTPatient reached? Yes, (negative) Called and gave the test results that COVID 19 is negative. Patient to cont inue social distancing, but no longer needs to be on home quarantine . May return to work if fever is gone and no meds were needed to reduce it within the last 24 hours. COVID testing done? Yes COVID results: Negative Describe your symptoms? Cough Feeling better Are your symptoms getting better, worse, or the same? Symptoms: are improving Lemon in ice water or honey and lemon in tea Popsicles to help reduce core temp and/or sooth throat Use cough drops as needed Diligent hand washing. Soap and water is best for minium of 30 seconds. If using hand sanit izer, must scrub full 20-30 seconds to kill Coronavirus. Rest Fluids, sports drinks, Pedialyte Monitor temperature. If fever of 100.4 alternate use of Tylenol and Ibuprofen every 4 hours . If fever does not come down try a cool shower, light clothing, cool cloth to armpits and b ack of neck, and use of fan. If fever is not resolved within 24 hours or spikes to 103.0 ple ase call your doctors office or Urgent care on weekends. Stay at home so as not to spread germs to the public. If get diarrhea it is best to sanitize toilet with bleach after use. elephone Enco Hali Cadet BOOM WORKER - 03/15/2020 10:25 AM PDT(for 1st contact and 2nd contact call s.) While waiting for your COVID-19 test results, you must wear a mask if you need to leave your home. This includes returning to a healthcare facility. Please arrive wearing your mask given to you during your initial evaluation. Do not throw your mask away. Patient reached? Yes. (pending) Advised to continue home quarantine and social isolating until we get the re sults back of the COVID testing. Encouraged diligent hand washing, rest, and plenty of fluid s. COVID testing done? Yes COVID results: Pending Describe your symptoms? weakness Are your symptoms getting better, worse, or the same? Symptoms: are improving Do you have any other concerns? NO Recommendations: Lemon in ice water or honey and lemon in tea Popsicles to help reduce core temp and/or sooth throat Use cough drops as needed Diligent hand washing. Soap and water is best for minium of 30 seconds. If using hand sanit izer, must scrub full 20-30 seconds to kill Coronavirus. Rest Fluids, sports drinks, Pedialyte Monitor temperature. If fever of 100.4 alternate use of Tylenol and Ibuprofen every 4 hours . If fever does not come down try a cool shower, light clothing, cool cloth to armpits and b ack of neck, and use of fan. If fever is not resolved within 24 hours or spikes to 103.0 ple ase call your doctors office or Urgent care on weekends. Stay at home so as not to spread germs to the public. If get diarrhea it is best to sanitize toilet with bleach after use. documented in this encounter Plan of Treatment [...]
--- OUTSIDE RECORDS SUMMARY | ~2020-05-30 | XMS | Encounter Summary ---
Demographics + + + | Address | [address] | | | [place] [address] | + + + | Home Phone | | + + + | Preferred Language | Unknown | + + + | Marital Status | Unknown | + + + | Taoism Affiliation | Unknown | + + + | Race | Unknown | + + + | Ethnic Group | Unknown | + + + Author + + + | Author | [facility] | | | and [place] | + + + | Organization | [facility] | | | and [...] Team Providers + +------+ + | Care Automobile Racer Name | Role | Phone | + [address] | | | | | [address] | [place] | | | | | [phone] | [address] | | | | | | | [...] Asymptomatic testing requested by authorized [facility] personnel, [facility] Infection Preventio n Nurse or Caregiver Health [...] + | Performed at: 01 - [facility] [address] | REFERENCE LAB | | [phone] Hamper Maker: Altagracia Marr MD, Phone: [phone] | [facility] | + + + + + + + + | Performing | Address | City/State/Zipcode | Phone Number | | Organization | | | | + + + + + | REFERENCE LAB | [address] | [place], [place] | [phone] | | [facility] | Drive [facility] | [address] | | + + + + + [...]
--- OUTSIDE RECORDS SUMMARY | ~2020-05-30 | XMS | Encounter Summary ---
Demographics + + + | Address | [address] | | | [place] [address] | + + + | Home Phone | | + + + | Preferred Language | Unknown | + + + | Marital Status | Single | + + + | Muslim Affiliation | Unknown | + + + | Race | White | + + + | Ethnic Group | Not or | + + + Author + + + | Author | [facility] | + + + | Organization | [facility] | + + + | Address | Unknown | + + + | Phone | Unavailable | + + + Support + + +---------+ + | Name | Relationship | Address | Phone | + + +---------+ + | Mindi Miller | ECON | Unknown | | + + +---------+ + Care Team Providers + +------+ + | Care Accounting Office Manager Name | Role | Phone | + +------+ + | No Pcp Per Patient | PCP | Unavailable | + +------+ + Encounter Details +--------+ + + + + | Date | Type | Department | Care Team | Description | +--------+ + + + + | 05/16/ | Pharmacy | Outpatient Retail | | | | 2015 | Visit | [facility] | | | | | | [address] | | | | | | [address] [place], [place] | | | | | | [address] | | | | | | [phone] | | | +--------+ + + + [...]
--- OUTSIDE RECORDS SUMMARY | ~2020-05-30 | XMS | Encounter Summary ---
Demographics + + + | Address | [address] | | | [place] [address] | + + + | Home Phone | | + + + | Preferred Language | Unknown | + + + | Marital Status | Unknown | + + + | Quaker Affiliation | Unknown | + + + | Race | Unknown | + + + | Ethnic Group | Unknown | + + + Author + + + | Author | [facility] | | | and [place] | + + + | Organization | [facility] | | | [...] Team Providers + +------+ + | Care Charge Poster Name | Role | Phone | + +------+ + PCP | Unavailable | + +------+ + Encounter Details +--------+ + + + + | Date | Type | Department | Care Team | Description | +--------+ + + + + | 12/13/ | Hospital | [facility] | Nader Araujo, | | | 2002 | Encounter | [facility] | [address] | | | | LAB[address]AT[address] | [address] | | | | | [address] [place], [place] | [place], [place] | | | | | [address] | [address] | | | | | [phone] | [phone] | | | | | | | [...] + + | SURGICAL PATHOLOGY REPORT | [facility] | | Date Taken: 12/13/2002 Date Received: 12/13/2002 | | | Completed: 12/14/2002 Physician: PHUC CAIN Copy to: Nader | | | [facility] DIAGNOSIS: Skin (center forehead), NOS. 0 | | | Maryann Moya M.D. Electronic signature GROSS | | | DESCRIPTION: The specimen labeled "center of forehead" is received in | | | formalin and consists of a 0.5 x 0.5 cm shave of white-baker tissue. | | | The specimen is bisected and submitted in one cassette. (MS) | | | [id number] [address] | | | or Testing performed at: [place] | | | [facility] Sloan Marquez M.D., | | | Director [address] [place] [address] [address] [place] [address] Phone: | | | | | + + + + + + + + | Performing | Address | City/State/[facility] | Phone Number | | Organization | | | | + + + + + | [facility] | [address] | [place] [address] | | | [facility] | | | | | LABORATORY | | | | + + + + + | JHOANA DONOVAN | | | | + + + + + documented in this encounter Visit Diagnoses Not on filedocumented in this encounter
--- OUTSIDE RECORDS SUMMARY | ~2020-05-30 | XMS | Encounter Summary ---
Demographics + + + | Address | [address] | | | [place] [address] | + + + | Home Phone [...] + + + | Author | [facility] | | | and [place] | + + + | Organization | [facility] | | [...] Team Providers + +------+ + | Care Clay Digger Name | Role | Phone | + [...] | 2019 | | [facility] | SUPERVISOR ELECTRIC MOTOR TESTING [address] | | | | | [address] | [place], [place] | | | | | [place], [place] | [address] | | | | | [address] | [phone] | | | | | [phone] | | | +--------+ + + + [...] bleach after use. elephone Enco Hali Cadet SUPERVISOR ELECTRIC MOTOR TESTING - 03/15/2020 10:25 AM PDT(for 1st contact [...]
--- OUTSIDE RECORDS SUMMARY | ~2020-05-30 | XMS | Clinical Summary ---
Demographics + + + | Address | [address] | | | [place] [address] | + + + | Home Phone | | + + + | Preferred Language | Unknown | + + + | Marital Status | Single | + + + | Mormonism Affiliation | Unknown | + + + [...] Team Providers + +------+ + | Care End Polisher Name | Role | Phone | + +------+ + | No Pcp Per Patient | PCP | Unavailable | + +------+ + Source Comments ELLIOT is fully live on both [facility] Ambulatory and [facility] InPatient.[facility] Allergies No Known Allergies Medications + + [...] | | | | | | | [address] | | + +--------+ +--------+ + +--------+ | BLUE CROSS BLUE | BCBS | [phone] | | [phone] | [address] | PPO | | SHIELD | OUT OF | xx | [phone] 8 | [address] [place] | | | | STATE | | esent | | [place], | | | | | | | | [place] | | | | | | | | [address] | | + +--------+ +--------+ + +--------+ [...] | | giorgio/Bandar | | 1930 | [phone] | [address] [place] | | | nir | | | [address] (Home) | [place] [address] | + +--------+ +--------+ + +"
--- OUTSIDE RECORDS SUMMARY | ~2020-05-30 | XMS | Encounter Summary ---
Demographics + + + | Address | [address] | | | [place] [address] | + + + | Home Phone [...] Author + + + | Author | [facility] | + + + | Organization | [facility] | + + + | Address | Unknown | + + + | Phone | Unavailable | + + + Support + + +---------+ + | Name | Relationship | Address | Phone | + + +---------+ + | Mindi Miller | ECON | Unknown | | + + +---------+ + Care Team Providers + +------+ + | Care Surface To Air Weapons Officer Name | Role | Phone | + [...] [facility] | | | | | | [facility] | | | | | | and Healing, | | | | | | Building [address]th | | | | | | Floor [place], [place] | | | | | | [address] | | | | | | [phone] | | | +--------+ + + + [...] Received:[id number] | | | | | | [phone] x 1 slide | | | | [...] Returned:[id number] | | | | | | [phone] x 1 slide | | | | [...] [facility] | [address] | [place] [address] | | | DERMATOPATHOLOGY | [address] | | | + + + + + documented in this encounter Visit Diagnoses Not on filedocumented in this encounter"
--- OUTSIDE RECORDS SUMMARY | ~2020-05-30 | XMS | Encounter Summary ---
Demographics + + + | Address | [address] | | | [place] [address] | + + + | Home Phone | | + + + | Preferred Language | Unknown | + + + | Marital Status | Single | + + + | Mu-Ism Affiliation | Unknown | + + + | Race | White | + + + | Ethnic Group | Not or | + + + Author + + + | Author | [facility] | + + + | Organization | [facility] | + + + | Address | Unknown | + + + | Phone | Unavailable | + + + Support + + +---------+ + | Name | Relationship | Address | Phone | + + +---------+ + | Mindi Miller | ECON | Unknown | | + + +---------+ + Care Team Providers + +------+ + | Care Drink Mixer Name | Role | Phone | + [...] [facility] | | | | | | [facility] | | | | | | and Healing, | | | | | | [facility], [facility] | | | | | | [place], [place] | | | | | | [address] | | | | | | [phone] | | | +--------+ + + + [...] | | | | | | SCC; [id number]. | | | | | | GROSS [...] skin, | | | | | | [id number]. The surgical | | | | | [...] [facility] | [address] | [place] [address] | | | DERMATOPATHOLOGY | [address] | | | + + + + + documented in this encounter Visit Diagnoses + + | Diagnosis | + + | Scar conditions and fibrosis of skin Scar condition and fibrosis of skin | + + | Actinic keratosis | + + documented in this encounter
--- OUTSIDE RECORDS SUMMARY | ~2020-05-30 | XMS | Encounter Summary ---
Demographics + + + | Address | [address] | | | [place] [address] | + + + | Home Phone | | + + + | Preferred Language | Unknown | + + + | Marital Status | Unknown | + + + | Mandaeism Affiliation | Unknown | + + + | Race | Unknown | + + + | Ethnic Group | Unknown | + + + Author + + + | Author | [facility] | | | and [place] | + + + | Organization | [facility] | | | [...] Team Providers + +------+ + | Care Library Media Technician Name | Role | Phone | [...] | | | | CENTER [address] | [address] | | | | | [place], [place] | [place], [place] | | | | | [address] | [address] | | | | | [phone] | | | +--------+ + + + [...] might be d ifferent from the original. [facility] Emergency Department Encounter Note [address] [place] [address] PCP:Dawn Bradford MD [phone] eMERGENCY dEPARTMENT eNCOUnter [...] Banding; Surgeon: Abilio Campos MD; Locati on: [facility] MEDICAL PROCEDURE UNIT EGD AND COLONOSCOPY 04/25/2016 tortuous sigmoid colon, sigmoid diverticulosis, hemorrhoids, normal biopsies HYSTERECTOMY KNEE SURGERY CURRENT MEDICATIONS ETHNOARCHAEOLOGIST Home Medications Medication Sig cholecalciferol (VITAMIN D-3) [...] deficits noted, no facial assymetry noted. Equal flake or shred roll operator in all extremities RADIOLOGY test x-ray no [...] this chart may have been created with [employer] voice recognition software. Occasi onal wrong-word or [...] | | | 8 mg, Oral, ONCE, [facility] 05/13/19 | | AM PDT | [...]
--- OUTSIDE RECORDS SUMMARY | ~2020-05-30 | XMS | Encounter Summary ---
Demographics + + + | Address | [address] | | | [place] [address] | + + + | Home Phone | | + + + | Preferred Language | Unknown | + + + | Marital Status | Unknown | + + + | Mu-Ism Affiliation | Unknown | + + + | Race | Unknown | + + + | Ethnic Group | Unknown | + + + Author + + + | Author | [facility] | | | and [place] | + + + | Organization | [facility] | | [...] Team Providers + +------+ + | Care Midwife And Birth Center Owner Name | Role | Phone | + +------+ + PCP | Unavailable | + +------+ + Encounter Details +--------+ + + + + | Date | Type | Department | Care Team | Description | +--------+ + + + + | 05/30/ | Emergency | [facility] | Dotty Rojo, | | | 1993 | | MEDICAL CENTER | DO [address] | | | | | EMERGENCY CENTER | [place] [address] | | | | | [address] | [phone] | | | | | [place], [place] | | | | | | [address] | | | | | | [phone] | | | +--------+ + + + [...]
--- OUTSIDE RECORDS SUMMARY | ~2020-05-30 | XMS | Encounter Summary ---
Demographics + + + | Address | [address] | | | [place] [address] | + + + | Home Phone | | + + + | Preferred Language | Unknown | + + + | Marital Status | Single | + + + | Islam Affiliation | Unknown | + + + | Race | White | + + + | Ethnic Group | Not or | + + + Author + + + | Author | [facility] | + + + | Organization | [facility] | + + + | Address | Unknown | + + + | Phone | Unavailable | + + + Support + + +---------+ + | Name | Relationship | Address | Phone | + + +---------+ + | Mindi Miller | ECON | Unknown | | + + +---------+ + Care Team Providers + +------+ + | Care Wing Coverer Name | Role | Phone | + [...] Pharmacy | | | | | | [address] | | | | | | [place], [place] | | | | | | [address] | | | | | | [phone] | | | +--------+ + + + [...]
--- OUTSIDE RECORDS SUMMARY | ~2020-05-30 | XMS | Encounter Summary ---
Demographics + + + | Address | [address] | | | [place] [address] | + + + | Home Phone | | + + + | Preferred Language | Unknown | + + + | Marital Status | Single | + + + | Jew Affiliation | Unknown | + + + | Race | White | + + + | Ethnic Group | Not or | + + + Author + + + | Author | [facility] | + + + | Organization | [facility] | + + + | Address | Unknown | + + + | Phone | Unavailable | + + + Support + + +---------+ + | Name | Relationship | Address | Phone | + + +---------+ + | Mindi Miller | ECON | Unknown | | + + +---------+ + Care Team Providers + +------+ + | Care Brick Maker Name | Role | Phone | + [...]
--- OUTSIDE RECORDS SUMMARY | ~2020-05-30 | XMS | Encounter Summary ---
Demographics + + + | Address | [address] | | | [place] [address] | + + + | Home Phone | | + + + | Preferred Language | Unknown | + + + | Marital Status | Single | + + + | Pentecostal Affiliation | Unknown | + + + | Race | White | + + + | Ethnic Group | Not or | + + + Author + + + | Author | [facility] | + + + | Organization | [facility] | + + + | Address | Unknown | + + + | Phone | Unavailable | + + + Support + + +---------+ + | Name | Relationship | Address | Phone | + + +---------+ + | Mindi Miller | ECON | Unknown | | + + +---------+ + Care Team Providers + +------+ + | Care Funeral Service Apprentice Name | Role | Phone | + [...] | | | | [facility] | | | | | | [address] | | | | | | [place] | | | | | | [facility], | | | | | | [address] [place] [address] | | | | | | [place], [place] | | | | | | [address] | | | | | | [phone] | | | +--------+ + + + [...] [facility] | [address] | [place] [address] | | | SERVICES, CORE | JILL [...] | + + + + + | [facility] | [address] | [place] [address] | | | SERVICES, CORE | PARK [...] [facility] | [address] | [place] [address] | | | SERVICES, CORE | JILL [...] | + + + + + | [facility] | [address] | [place] [address] | | | SERVICES, CORE | JILL [...] | | | LABORATORY | | | IRAQI | | | SERVICES, | | | [...] the MDRD equation recommended by the | [facility] | | National Kidney Disease Education Program. [...] | + + + + + | [facility] | [address] | [place] [address] | | | SERVICES, CORE | [address] | | | + + + + + documented in this encounter Visit Diagnoses + + | Diagnosis | + + | Research exam Examination of participant in clinical trial | + + documented in this encounter"
--- OUTSIDE RECORDS SUMMARY | ~2020-05-30 | XMS | Encounter Summary ---
Demographics + + + | Address | [address] | | | [place] [address] | + + + | Home Phone | | + + + | Preferred Language | Unknown | + + + | Marital Status | Unknown | + + + | Muslim Affiliation | Unknown | + + + | Race | Unknown | + + + | Ethnic Group | Unknown | + + + Author + + + | Author | [facility] | | | and [place] | + + + | Organization | [facility] | | | and [...] Team Providers + +------+ + | Care Group Burner Machine Name | Role | Phone | + +------+ + PCP | Unavailable | + +------+ + Encounter Details +--------+ + + + + | Date | Type | Department | Care Team | Description | +--------+ + + + + | 05/30/ | Emergency | [facility] | Dotty Rojo, | | | 1993 | | MEDICAL CENTER | DO [address] | | | | | EMERGENCY CENTER | [place] [address] | | | | | [address] | [phone] | | | | | [place], [place] | | | | | | [address] | | | | | | [phone] | | | +--------+ + + + [...]
[~2020-05-30 15:29] MED LIST: CHLORTHALIDONE25 MG PO; COZAAR100 MG PO; FLUOROURACIL30 GM; LEVOTHYROXINE88 MCG PO
[2020-05-30] MEDS ORDERED: FLOVENT HFA12 G1 INH (17:03)
[2020-05-30] MEDS ORDERED: OXYBUTYNIN CHLOR5 M1 PO (17:04)
[2020-05-30] MEDS ORDERED: VENTOLIN HFA18 GM INH (17:05)
--- NOTE | 2020-05-30 19:06 | NUR ---
PT ARRIVED TO FLOOR VIA STRETCHER. SBA TO BED. TELE 5 PLACED. VITALS TAKEN AND STABLE. ORIENTED TO ROOM. CALL LIGHT IN REACH.
--- NOTE | 2020-05-30 19:48 | NUR ---
MED VERIFIED WITH TELE PHARMACY. ORDER PLACED.
--- NOTE | 2020-05-30 19:55 | NUR ---
RECEIVED REPORT FROM CARLOS HAGER. RT AT BEDSIDE. pt ALDO. TELE 5 SINUS HYACINTH. HR 60, O2 SAT 99% ON ROOM AIR. SIGNIFICANT OTHER AT BEDSIDE. WHITEBOARD UPDATED. CALL LIGHT WITHIN REACH.
--- NOTE | 2020-05-30 20:59 | NUR ---
IN TO ASSESS pt. PLEASANT, ASKED TO HAVE HER HEAD LOWERED IN BED. HAS TROUBLE WITH GETTING WORDS OUT. STATED "IT'S LIKE I TRY TO SAY SOMETHING BUT IT DOESN'T COME OUT." AT TIMES SPEECH IS PERFECTLY CLEAR. NIH SCALE COMPLETED, pt HAD VERY CLEAR SPEECH READING WORDS. STRUGGLED TO DESCRIBE THE PICTURE. UP TO VOID. pt VERY UNSTEADY ON FEET. 2PA TO BSC. BACK TO BED. WARM BLANKET GIVEN. MEDICATION GIVEN (SEE MAR). BED ALARM ON FOR SAFETY. NO FURTHER REQUESTS AT THIS TIME. CALL LIGHT WITHIN REACH.
--- NOTE | 2020-05-30 21:40 | NUR ---
IN TO REASSESS pt. RESTING IN BED. VITAL SIGNS TAKEN. AUSCULTATED HEART SOUNDS, IRREGULAR AT TIMES. pt DENIED CHEST PAIN, SOB, LIGHTHEADEDNESS. NO REQUESTS. CALL LIGHT WITHIN REACH.
--- NOTE | 2020-05-30 22:55 | NUR ---
WOKE pt TO GIVE MEDICATION. pt SWALLOWED WELL. NO REQUESTS AT THIS TIME. CALL LIGHT WITHIN REACH.
--- NOTE | 2020-05-31 00:13 | NUR ---
ROUNDED ON pt. pt AWAKE, REQUESTED TO GET UP TO VOID. 1PA BEDSIDE COMMODE. pt MORE STABLE ON FEET AT THIS TIME. TELE LEADS REPLACED. BED ALARM ON FOR SAFETY. CALL LIGHT WTIHIN REACH. NO FURTHER REQUESTS AT THIS TIME.
--- NOTE | 2020-05-31 02:38 | NUR ---
IN TO ASSESS pt. NEURO CHECK DONE. SHAPER SET UP OPERATOR EQUAL. pt STATED "I CAN'T LIFT MY LEG" AFTER STANDING. pt THEN DEMONSTRATED THAT SHE COULD STAND AND LIFTED EACH LEG AND STATED "I GOT IT." 2PA TO BS, VOIDED BACK TO BED. ASSESSMENT DONE. RIGHT SIDED FACIAL DROOP NOTED, RIGHT LEG DRIFTED SLIGHTLY. pt HAD TROUBLE WITH WORDS AT TIMES. REPORTED "I'VE BEEN DEALING WITH THIS FOR A LONG TIME, IT'S NO DIFFERENT." VITALS AND I&OS RECORDED. NO FURTHER REQUESTS AT THIS TIME. CALL LIGHT WITHIN REACH.
--- NOTE | 2020-05-31 04:39 | NUR ---
pt RESTING IN BED, RESPIRATIONS REGULAR AND UNLABORED. CALL LIGHT WITHIN REACH.
--- NOTE | 2020-05-31 05:47 | NUR ---
pt RESTING IN BED. VITALS AND I&O RECORDED. MEDICATION GIVEN (SEE MAR). pt REPORTED "I SLEPT WELL, I FEEL GREAT" NO REQUESTS AT THIS TIME. CALL LIGHT WITHIN REACH.
--- NOTE | 2020-05-31 07:20 | NUR ---
REPORT RECEIVED FROM RICHARDSON GONZALEZ. PT RESTING ON LEFT SIDE IN BED, ECHO TECHNITIAN AT BEDSIDE FOR ECHO STUDY. BED RAILS UP. NO REQUESTS OR COMPLAINTS. CALL LIGHT WITHIN REACH.
--- NOTE | 2020-05-31 08:08 | NUR ---
MORNING ASSESSMENT AND MEDICATION DUE. PT FINISHED WITH ECHO. PT DENIES PAIN AND NAUSEA. NIH STROKE SCORE ASSESMENT DONE, PT SCORES A 3 FOR EYE DRIFT, SPEACH AND SLIGHT FACIAL DROOP. 1PERSON ASSIST UP TO BEDSIDE COMODE. PT VOIDS WITHOUT ISSUE. PT NOTED TO BE WEARING TWO ADAM PADS AND 2 PAIRS OF UNDERWARE. ADAM CARE DONE. UNDERWARE CHANGED, DEPENDS NOW IN PLACE. PT UP TO CHAIR WITH 1 PERSON ASSIST, PT UNSTEADY ON FEET AT TIMES. BRADYCARDIA NOTED. PT DENIES DIZZINESS WITH STANDING. DENTURE CARE DONE. PT AWIAITING BREAFKAST. PT DEMONSTRATES USE OF I.S. REACHING 750ML. LINENS CHANGED. NO ADDTIONAL REQUESTS OR COMPLAINTS AT THIS TIME. CALL LIGHT WITHIN REACH.
--- NOTE | 2020-05-31 08:38 | NUR ---
PATIENT UP IN CHAIR, BREAKFAST DELIVERED. VITALS AND I&OS DONE. WASHCLOTH GIVEN FOR FACE AND HANDS. FRESH WATER ALSO. CALL LIGHT IN REACH.
--- NOTE | 2020-05-31 09:30 | NUR ---
SPOKE WITH PATIENT IN ROOM. SHE WAS UP IN RECLINER CHAIR. PATIENT HAS OBVIOUS TROUBLE WITH SPEACH, SLOW BUT ORIENTED. PATIENT IS MOVING ALL EXTREMITIES ALTHOUGH STATES LEFT SIDE FEELS WEAKER. SHE STATES SHE LIVES IN [place] WITH HER BOYFRIEND KEIRY IN [place]. SHE IS RETIRED. STILL DRIVES. STATES SHE DROVE TO THE [employer] YESTERDAY AND HAD JUST WON $500 WHEN SHE NOTICED SHE WAS HAVING TROUBLE. SHE INTENDS TO RETURN HOME AT DISCHARGE. STATES SHE HASN'T BEEN UP AMBULATING MUCH YET. DISCUSSED THERAPY WILL SEE HER TO GIVE US AN IDEA WHAT SHE MIGHT NEED GOING FORWARD. DISCUSSED POSSIBLE NEEDS SUCH OUTPATIENT THERAPY TO SNF STAY. SHE IS HOPING SHE DOES NOT NEED TO GO TO A FACILITY, BUT IF SHE DID SHE WOULD WANT TO GO BACK TO [place]. 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 SHE STATES THAT SHE MIGHT BE ABLE TO HIRE HELP AT HOME IF NEEDED. SHE DENIES FINANCIAL WORRIES FOR AFFORDING MEDICATIONS, FOOD OR UTILITIES. SHE DOES NOT USE DME USUALLY, STATES THERE IS A CANE AT HOME TO USE IF NEEDED. SHE HOPES SHE DOESN'T "EVER HAVE TO USE A WALKER". HER SIG OTHER CAME INTO THE ROOM. HIS NAME IS KEIRY. HE TALKED WITH HER THAT SHE COULD USE A WALKER AROUND HOME EASY. THEY STATE THERE ARE NO STAIRS. HE FEELS HE CAN HELP HER IF SHE GOES HOME. WE AGAIN DISCUSSED HER THERAPY AND WE WILL KNOW MORE ONCE THEY WORK WITH HER MORE. THEY STATE UNDERSTANDING. NO QUESTIONS AT THIS TIME.
--- NOTE | 2020-05-31 11:00 | NUR ---
THIS RN TO ROOM TO CHECK ON PT. PT UP TO CHAIR AND VISITING WITH KEIRY. PT AND HOPING FOR PTS DISCHARGE TODAY AND WOULD LIKE TO KNOW WHEN MD WILL BE IN TO VISIT. PT AND UPDATED ON PLAN OF CARE. WATER REFILLED. NO ADDIITONAL REQUESTS OR COMPLAINTS. CALL LIGHT WITHIN REACH.
--- NOTE | 2020-05-31 12:09 | NUR ---
NOON ASSESSMENT DUE. PT UP TO CHAIR TALKING WITH PHYSICAL THERAPY. 1 PERSON ASSIST UP TO RESTROOM. PT VOIDS WITHOUT ISSUE. ASSESSMENT DONE. NIH SCORE OF 2, PTS GAZE IMPROVED, NORMAL GAZE TRACKIN AT THIS TIME WITHOUT NYSTAGMUS. SPEACH IMPROVED WITH LESS SLURRING OF WORDS. PT DENIES PAIN AN NAUSEA. PT UP TO AMBULATE IN WINTER WITH PHYSICAL THERAPY. PTS AND BEDSIDE AND ANTICIAPTING DISCHARGE. PLAN OF ARE DISCUSSED WITH FAMILY AND PT WHO VERALIZES UNDERSTANDING. NO ADDITIONAL REQUESTS OR COMPLAINTS AT THIS TIME. CALL LIGHT WITHIN REACH. PT DEMONSTRATES USE OF I.S. REACHING 100ML. NO ADDITIONAL REQUESTS OR COMPLAINTS. CALL LIGHT WITHIN REACH.
[2020-05-31] MEDS ORDERED: LIPITOR80 MG PO (12:35)
[2020-05-31] MEDS ORDERED: ASPIRIN81 MG PO (12:35)
--- NOTE | 2020-05-31 12:36 | NUR ---
INTO PT ROOM TO ASK ABOUT PREFERENCES TO WHERE THEY WOULD LIKE TO PICKUP FWW, AND WHERE THEY WOULD LIKE TO HAVE PHYSICAL THERAPY. PT AND SIGNIFICANT OTHER VERBALIZED THAT THEY WOULD LIKE TO SUB ACUTE CARE NURSE FWW AT [facility] AND HAVE THERAPY AT [facility]. THIS INFO CALLED TO JOANA WITH DISCHARGE PLANNING.
--- NOTE | 2020-05-31 13:24 | NUR ---
SPOKE WITH PATIENT AND SIG OTHER IN ROOM. SHE IS BEING DISCHARGED AND SHE HAS AGREED TO USE A WALKER. DISCUSSED OPTIONS. THEY WOULD LIKE RX SENT TO [facility] AND THEY WILL PICK IT AFTER SHE LEAVES HERE. DISCUSSED THAT IT WILL TAKE SOME TIME TO GET PAPERWORK SENT AND THEY WILL NEED TO GET IT AUTHORIZED. THEY ARE FINE WITH THIS. DISCUSSED THERAPY OPTION. OP THERAPY HAS BEEN ORDERED. THEY WOULD LIKE THIS SENT TO [facility] IN [place]. THEY FEEL PATIENT IS SAFE TO GO HOME. HE STATES HE WILL BE AROUND TO HELP HER. THEY KNOW SHE WILL FOLLOW UP WITH PCP. NO OTHER QUESTIONS AT THIS TIME.
--- NOTE | 2020-05-31 13:30 | NUR ---
FAXED RX FOR FWW, CLINICALS TO [facility]. FAX CONFIRMATION RECEIVED. CALLED AND SPOKE WITH BULL. SHE WILL PROCESS.
--- NOTE | 2020-05-31 13:35 | NUR ---
PATIENT WAS GETTING READY TO DISCHARGE HOME
--- NOTE | 2020-05-31 13:45 | NUR ---
THIS RN TO ROOM TO CHECK ON PT. PT UPDATED ON PLAN OF CARE AND DISCHARGE. AWAITING MD ORDER. SUPERINTENDENT LOCAL TO BEDSIDE TO ASSIST PT WITH GETTING DRESSED. NO ADDITIONAL REQUESTS OR COMPLAINTS. CALL LIGHT WITHIN REACH. AT BEDSIDE.
--- NOTE | 2020-05-31 14:10 | NUR ---
PT APPEARS ALERT, ORIENTED AND SUPPORTED BY HER KEIRY. PT IS SITTING IN CHAIR, SAYS SHE IS FEELING BETER. KEIRY STATES THEY LIVE IN [place], AND ARE WAITING FOR DC.PLAN TO FOLLOW WITH THERAPY AND DR IN [place]. COMMENTED THAT THEY ARE VERY PLEASED WITH CARE RECEIVED AT [facility]. ALL OTHER QUESTIONS ASKED AND ANSWERED.HAD PRAYER WITH BOTH.
--- NOTE | 2020-05-31 14:12 | NUR ---
CALLED [facility]. 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 STAFF UPDATED.
--- NOTE | 2020-05-31 14:45 | NUR ---
PT READY FOR DISCHARGE. PT UP TO DRESS WITH YARED, STEADY ON FEET WITH 1 PERSON ASSIST, [facility]WW. IV DC'D BY YARED CHAN 2, WNL. VITALS TAKEN. DISCHARGE INSTRUCTIONS REVEWIED WITH PT AND . PT AND VERBALIZE UNDERSTANDING OF INSTRUCTIONS, MEDICATION, FOLLOW UP APPOINTMENTS AND WHEN TO COME TO THE ER FOR S/S OF STROKE. PT TRANSFERES SELF TO WHEEL CHAIR. NEBULIZER AND SPACER RETURNED TO PT. PT DENIES ADDITIONAL REQUESTS OR CONCERNS. PT WHEELED FROM MED/SURG WITH BELONGINGS.
--- NOTE | 2020-05-31 16:37 | EKG ---
[facility] [address] [place], [place] [address] Signed Normal sinus rhythm Normal ECG No previous ECGs available Confirmed by KIRSTIN PANDYA DO ([id number]) on 05/31/2020 4:37:31 PM Electronically Signed By: KIRSTIN PANDYA DO 05/31/20 1637 PATIENT NAME: ALEXCOREY Electrocardiogram DATE OF : [birth year] PHYSICIAN: KIRSTIN PANDYA DO REPORT #: [id number] REPORT IS CONFIDENTIAL AND NOT TO BE RELEASED WITHOUT AUTHORIZATION
--- NOTE | 2020-06-01 13:45 | NUR ---
FAXED THE PAPERWORK TO [facility] AND PUT THE CONFIRMATION SHEET WITH IT.
== END 2020-05-31 14:53 | disposition home or self-care (01) | DRG 66 ==
LOC: ED 15:29 → MS 15:30
PROVIDERS: ADMIT Student in an Organized Health Care Education/Training Program
DX: I63.312 Cerebral infarction due to thrombosis of left middle cerebral artery (principal); G83.11 Monoplegia of lower limb affecting right dominant side; R29.810 Facial weakness; R47.01 Aphasia; R29.703 NIHSS score 3; Z20.828 Contact with and (suspected) exposure to other viral communicable diseases; E78.5 Hyperlipidemia, unspecified; I10 Essential (primary) hypertension; E03.9 Hypothyroidism, unspecified; Z88.5 Allergy status to narcotic agent; Z79.899 Other long term (current) drug therapy; Z79.51 Long term (current) use of inhaled steroids
CPT/HCPCS: 70450; 70496; 70498; 71045; 80053; 80061; 83036; 83735; 84100; 84484; 85025; 85610; 85730; 93005; 93010; 93306; 97162; 97165; 99285-25; C9803; Q9967; U0002